=== PATIENT | male | born 1940 | race Caucasian/White ===

== ENCOUNTER → 2017-04-10 | Outpatient (CLI) | payer BC ==
[~2017-04-10] MED LIST: ALBU1AER9; ASPEC81 PO; CLR10 PO; DIAZ-165 PO; MULT-506 PO; NAPR1TAB9 PO; ROPI0.25 PO; [UNRECOGNIZED DRUG - CODE]
[2017-04-10 13:35] LABS: BLOOD UREA NITROGEN 16 mg/dl (7-18); BUN/CREATININE RATIO 14.9 (10-20); CARBON DIOXIDE 29 mmol/L (21-32); CHLORIDE 103 mmol/L (98-107); GLUCOSE 110 mg/dl (70-99); POTASSIUM 4.1 mmol/L (3.5-5.1); SODIUM 138 mmol/L (136-145)
[2017-04-10 13:38] LABS: CHOLESTEROL 214 mg/dl (0-200); CHOLESTEROL/HDL RATIO 6.3; HDL CHOLESTEROL 34 mg/dl; TRIGLYCERIDES 448 mg/dl (0-150)
== END | disposition home or self-care (01) ==
LOC: C.LABBC 09:48
PROVIDERS: ATTEND Family Medicine
DX: I10 Essential (primary) hypertension (principal); E78.00 Pure hypercholesterolemia, unspecified

== ENCOUNTER → 2017-05-18 | Outpatient (CLI) | payer BC ==
--- NOTE | 2017-05-18 13:27 | DIAGNOSTIC IMAGING REPORT ---
CT HEAD WITHOUT CONTRAST (CT) CLINICAL HISTORY: Vertigo, history of abnormal BRAIN MRI COMPARISON STUDY: Head CT dated 10/06/2014, MRI the brain dated 12/10/2014 TECHNIQUE: Axial CT of the brain is performed from the vertex to the skull base. IV contrast was not administered for this examination. A dose lowering technique was utilized adhering to the principles of ALARA. CT DOSE: 788.63 mGycm FINDINGS: There is a stable 1 cm some ependymal nodule within the anterior horn of the right lateral ventricle. There is no midline shift. There is no acute hemorrhage. There are patchy white matter hypodensities likely on a small vessel basis. There is no evidence of pathologic ventricular dilatation. There is no evidence of acute sinusitis. There is prominent extra-axial CSF space within the frontal regions unchanged the prior study. There is a stable metallic structure within the right calvarium just posterior and superior to the mastoids. IMPRESSION: 1. No acute intracranial findings 2. 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 Stable white matter hypodensities likely on a small vessel basis Electronically signed by: Jorge Gomes M.D. 05/18/2017 1:26 PM Dictated Date/Time: 05/18/2017 1:22 PM
== END | disposition home or self-care (01) ==
LOC: C.CTS 13:10
PROVIDERS: ATTEND Family Medicine
DX: R42 Dizziness and giddiness (principal); R90.89 Other abnormal findings on diagnostic imaging of central nervous system

== ENCOUNTER → 2017-10-16 | Outpatient (CLI) | payer BC ==
[2017-10-16 14:42] LABS: ALT/SGPT 29 U/L (12-78); BLOOD UREA NITROGEN 17 mg/dl (7-18); CALCIUM 8.8 mg/dl (8.5-10.1); CARBON DIOXIDE 32 mmol/L (21-32); CHOLESTEROL 171 mg/dl (0-200); CREATININE 1.17 mg/dl (0.60-1.40); GLUCOSE 90 mg/dl (70-99); POTASSIUM 4.1 mmol/L (3.5-5.1); SODIUM 137 mmol/L (136-145)
[2017-10-16 14:47] LABS: LDL CHOLESTEROL CALCULATED 103 mg/dl
== END | disposition home or self-care (01) ==
LOC: C.LABBC 11:46
PROVIDERS: ATTEND Family Medicine
DX: E78.00 Pure hypercholesterolemia, unspecified (principal); I10 Essential (primary) hypertension

== ENCOUNTER → 2017-10-31 | Outpatient (CLI) | payer BC ==
--- NOTE | 2017-10-31 15:39 | DIAGNOSTIC IMAGING REPORT ---
L-SPINE MIN 4 VIEWS ROUTINE CLINICAL HISTORY: M54.5 Low back pain s/p fall approx. 2 wks ago with pain in lower back COMPARISON STUDY: No previous studies for comparison. FINDINGS: There is a thoracolumbar dextroscoliosis. There is moderate facet joint arthropathy at the L4-5 and L5-S1 levels. There are multilevel degenerative changes. No acute fractures or traumatic subluxations are visualized. There is a minimal grade 1 spondylolisthesis of L4 on L5. IMPRESSION: Multilevel degenerative change. No acute fractures or traumatic subluxations identified Electronically signed by: Jorge Gomes M.D. 10/31/2017 3:37 PM Dictated Date/Time: 10/31/2017 3:08 PM
== END | disposition home or self-care (01) ==
LOC: C.RADBC 14:51
PROVIDERS: ATTEND Family Medicine
DX: M54.5 Low back pain (principal); M46.96 Unspecified inflammatory spondylopathy, lumbar region

== ENCOUNTER 2019-12-12 15:56 | Inpatient (IN) ==
[2019-12-12] MEDS ORDERED: SODIUM CHLORIDE 0.9% 500 ML IV ONE (16:11)
--- NOTE | 2019-12-12 16:25 | XRay Report ---
XR chest 1V portable CLINICAL HISTORY: Atypical chest pain COMPARISON STUDY: 07/30/2019 FINDINGS: The heart is at the upper limits of normal in size. Emphysema is suspected. There is no focal pulmonary consolidation. There is no failure. There are no pleural effusions. There is a calcified left lower lung zone granuloma. There is minor basilar atelec tasis/scarring.[ IMPRESSION: No active disease in the chest. ACT 112: Negative or not required by law. Electronically signed by: Jorge Gomes M.D. 12/12/2019 4:24 PM
--- NOTE | 2019-12-12 16:48 | Emergency Department Note ---
History of Present Illness General Chief complaint: Chest Pain Stated complaint: CHEST PAIN Time Seen by Provider: 12/12/19 16:11 Source: patient Mode of arrival: ambulatory Limitations: no limitations History of Present Illness Provider complaint: Chest pain Onset (ago): hour(s) Location: chest Severity: moderate Pain Consistency: + intermittent and + now resolved Maximum Pain Intensity: 5 Current Pain Intensity: 0 Relieved By: + none Exacerbated By: + none Associated symptoms: no diaphoresis, no nausea/vomiting, no shortness of breath and no syncope Treatments prior to arrival: none The patient is a pleasant 79-year-old gentleman with a 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 Denies shortness of breath, nausea, vomiting. He denies any recent illness with i ncluding fevers chills, cough, congestion, diarrhea. At this time patient denies any symptoms. He reports being evaluated for similar symptoms several months ago and had an outpatient nuclear stress test that was negative per his understanding. Home Medications Home Medications Medication Instructions Recorded Confirmed Type albuterol sulfate 90 mcg/actuation 1 - 2 puffs INHALATION Q4H PRN #1 06/14/19 12/12/19 History aerosol inhaler gm azelastine 137 mcg (0.1 %) nasal 2 sprays INTRANASAL BID #3 ml 06/14/19 12/12/19 History spray aerosol beclomethasone dipropionate 80 1 puffs INHALATION HS #1 gm 06/14/19 12/12/19 History mcg/actuation HFA breath activated aerosol epinephrine 0.3 mg/0.3 mL 0.3 ml IM UD PRN #1 ea 06/14/19 12/12/19 History injection, auto-injector calcium carb-vit D3-minerals 600 1 tab PO DAILY tab 07/21/19 12/12/19 History mg calcium-400 unit tablet docusate sodium 100 mg capsule 100 mg PO DAILY 07/21/19 12/12/19 History trazodone 50 mg tablet 50 - 100 mg PO HS PRN #60 tab 09/01/19 12/12/19 Rx temazepam 15 mg capsule 15 mg PO HS PRN #90 cap 09/05/19 12/12/19 Rx apixaban 5 mg tablet 5 mg PO BID #180 tab 09/10/19 12/12/19 Rx triamcinolone acetonide 0.1 % 1 appln TOPICAL TID #240 gm 10/03/19 12/12/19 Rx topical cream loratadine 5 mg-pseudoephedrine ER 1 tab PO Q12H #180 tab 11/28/19 12/12/19 Rx 120 mg tablet,extended release,12hr meclizine 25 mg tablet 25 mg PO BID PRN #60 tab 12/03/19 12/12/19 Rx prednisone 10 mg tablet See Rx Instructions PO DAILY #30 12/03/19 12/12/19 Rx tab gabapentin 400 mg capsule 400 mg PO BID #60 cap 12/10/19 12/12/19 Rx rdsrpozjey-jeehcry-xkoupqtu 1 cap PO Q6H PRN 12/12/19 12/12/19 History doxycycline hyclate 50 mg PO DAILY 12/12/19 12/12/19 History folic acid 1 mg PO HS 12/12/19 12/12/19 History losartan 25 mg PO QPM 12/12/19 12/12/19 History losartan 50 mg PO QPM 12/12/19 12/12/19 History Allergies Allergy/AdvReac Type Severity Reaction Status Date / Time sunflower seed Allergy Mild . Verified 12/12/19 17:27 pramipexole [From Mirapex] Allergy makes Verified 12/12/19 17:27 extremely sleppy Past Med/Surg History Medical History Afib (Chronic) HTN (hypertension), benign (Chronic) Prostate cancer (Resolved) Sleep apnea (Chronic) Status post placement of bone anchored hearing aid (BAHA) Surgical History S/P left knee surgery S/P prostatectomy Family History Family/Other Diabetes Brother Diabetes Mother Diverticulitis Denies family history of Ovarian cancer Prostate cancer Myocardial infarction Breast cancer Colorectal cancer Social History Preferred Language: Moroccan Visual Impairment: No Limitations Hearing Ability: Use of Hearing Aid marital status: Current Living Situation: Spouse current occupational status: retired Feels Safe at Home: Yes Smoking Status: Never smoker Second Hand Exposure: No ; Hx Alcohol Use: Yes Alcohol type: beer, wine and hard liquor Alcohol Intake Frequency: Daily Alcohol Intake Frequency Comment: 2 drinks a day Hx Substance Use: No Childhood Exposure to Second-Hand Smoke: Yes Dental Care, Regularly: Yes Physical Activity Frequency: Does not Exercise Seatbelt Use: always Sunscreen Use: Yes Review of Systems See HPI for pertinent positives and negatives. A total of ten systems were reviewed and were otherwise negative. Physical Exam Vital Signs Vital Signs - 24 hr 12/12/19 16:00 12/12/19 16:40 12/12/19 16:57 Temperature 36.7 C Temperature Source Oral Pulse Rate 106 H 84 85 Pulse Rate from SpO2 Sensor 87 Respiratory Rate 20 20 11 L Blood Pressure 178/122 H 172/110 H Blood Pressure Mean 140 129 Pulse Oximetry 98 100 Oxygen Delivery Method Room Air Sepsis Recent Fever Within 48 Hours No Sepsis New/Unexplained Change in Mental Status No Sepsis Action Taken by Nursing No Action Required 12/12/19 17:00 12/12/19 17:01 12/12/19 17:30 Temperature Temperature Source Pulse Rate 82 85 81 Pulse Rate from SpO2 Sensor 87 94 H 80 Respiratory Rate 14 7 L 12 Blood Pressure 160/102 H 158/100 H Blood Pressure Mean 111 142 Pulse Oximetry 98 98 98 Oxygen Delivery Method Sepsis Recent Fever Within 48 Hours Sepsis New/Unexplained Change in Mental Status Sepsis Action Taken by Nursing 12/12/19 17:31 12/12/19 18:00 12/12/19 18:01 Temperature Temperature Source Pulse Rate 79 79 70 Pulse Rate from SpO2 Sensor 82 78 75 Respiratory Rate 14 14 18 Blood Pressure 184/117 H Blood Pressure Mean 123 Pulse Oximetry 99 97 99 Oxygen Delivery Method Sepsis Recent Fever Within 48 Hours Sepsis New/Unexplained Change in Mental Status Sepsis Action Taken by Nursing 12/12/19 18:30 12/12/19 19:00 12/12/19 19:13 Temperature Temperature Source Pulse Rate 81 72 81 Pulse Rate from SpO2 Sensor 79 72 87 Respiratory Rate 13 14 9 L Blood Pressure 173/123 H 194/131 H 181/119 H Blood Pressure Mean 143 152 146 Pulse Oximetry 99 100 100 Oxygen Delivery Method Sepsis Recent Fever Within 48 Hours Sepsis New/Unexplained Change in Mental Status Sepsis Action Taken by Nursing 12/12/19 20:19 12/12/19 20:30 12/12/19 21:30 Temperature Temperature Source Pulse Rate 74 83 75 Pulse Rate from SpO2 Sensor 79 86 Respiratory Rate 12 12 20 Blood Pressure 197/130 H 197/135 H 203/122 H Blood Pressure Mean 140 142 132 Pulse Oximetry 99 98 Oxygen Delivery Method Room Air Sepsis Recent Fever Within 48 Hours Sepsis New/Unexplained Change in Mental Status Sepsis Action Taken by Nursing GENERAL: Awake, alert, well-appearing, in no distress HENT: Normocephalic, atraumatic. Oropharynx with dry mucous membranes and otherwise unremarkable. EYES: Normal conjunctiva. Sclera non-icteric. NECK: Supple. No nuchal rigidity. FROM. No JVD. RESPIRATORY: Clear to auscultation. CARDIAC: Regular rate, irregular rhythm. Extremities warm and well perfused. Pulses equal. ABDOMEN: Soft, non-distended. No tenderness to palpation. No rebound or guarding. No masses. RECTAL: Deferred. MUSCULOSKELETAL: Chest examination reveals no tenderness. The back is symmetrical on inspection without obvious abnormality. There is no CVA tenderness to palpation. No joint edema. LOWER EXTREMITIES: Calves are equal size bilaterally and non-tender. No edema. No discoloration. NEURO: Normal sensorium. No sensory or motor deficits noted. SKIN: No rash or jaundice noted. Course Administered Medications Apixaban (Eliquis) 5 mg PO BID MILAD Stop: 01/11/20 23:28 Last Admin: 12/13/19 01:14 Dose: 5 mg Documented by: [id number] Metoprolol Tartrate (Lopressor) 5 mg IV Q4 PRN PRN Reason: hypertension Stop: 01/11/20 23:28 Last Admin: 12/13/19 00:52 Dose: 5 mg Documented by: [id number] Temazepam (Restoril) 15 mg PO HS PRN PRN Reason: insomnia Stop: 01/11/20 23:28 Last Admin: 12/13/19 00:51 Dose: 15 mg Documented by: [id number] Trazodone HCl (Desyrel) 100 mg PO HS PRN PRN Reason: SLEEPLESSNESS Stop: 01/12/20 00:32 Last Admin: 12/13/19 00:50 Dose: 100 mg Documented by: [id number] Discontinued Medications Aspirin (Aspirin Chew) 324 mg PO NOW STA Stop: 12/12/19 20:36 Last Admin: 12/12/19 21:01 Dose: 324 mg Documented by: [id number] Hydralazine HCl (Hydralazine Hcl) 5 mg IV NOW STA Stop: 12/12/19 22:07 Last Admin: 12/12/19 22:20 Dose: 5 mg Documented by: [id number] Sodium Chloride (Nss) 500 mls @ 999 mls/hr IV .Q31M ONE Stop: 12/12/19 16:41 Last Infusion: 12/12/19 18:50 Dose: 0 mls/hr Documented by: [id number] Admin: 12/12/19 17:09 Dose: 999 mls/hr Documented by: [id number] Medical Decision Making Differential Diagnosis Cardiac ischemia, aortic dissection, pulmonary embolism, pneumothorax, pneumonia, pericarditis, myocarditis, esophageal rupture, GERD, cholecystitis, pancreatitis, musculoskeletal, as well as other pathologies. Medical Records Attestation: I reviewed the patient's medical records. Home Medications Current Medication List: was personally reviewed by me Laboratory Data Attestation: I reviewed the patient's lab results. Result diagrams: 12/12/19 16:40 12/12/19 18:26 Lab Results 12/12/19 12/12/19 12/12/19 Range/Units 16:40 16:40 16:40 WBC 8.94 (4.8-10.8) K/uL RBC 4.91 (4.7-6.1) M/uL Hgb 16.1 (14.0-18.0) g/dL Hct 47.0 (42-52) % MCV 95.7 (80-100) fL MCH 32.8 (25-34) pg MCHC 34.3 (32-36) g/dL RDW Std Deviation 49.0 H (36.4-46.3) fL RDW Coeff of Trudi 14.2 (11.5-14.5) % Plt Count 155 (130-400) K/uL MPV 9.7 (7.4-10.4) fL Immature Gran % (Auto) 0.4 % Neut % (Auto) 82.1 % Lymph % (Auto) 11.4 % [place] % (Auto) 5.8 % Eos % (Auto) 0.1 % Baso % (Auto) 0.2 % Immature Gran # (Auto) 0.04 H (0.00-0.02) K/uL Neut # (Auto) 7.33 H (1.4-6.5) K/uL Lymph # (Auto) 1.02 L (1.2-3.4) K/uL [place] # (Auto) 0.52 (0.11-0.59) K/uL Eos # (Auto) 0.01 (0-0.5) K/uL Baso # (Auto) 0.02 (0-0.2) K/uL PT 11.3 (9.0-12.0) Seconds INR 1.1 (0.9-1.1) APTT 26.6 (21.0-31.0) Seconds PTT Ratio 1.0 Sodium 138 (136-145) mmol/L Potassium (3.5-5.1) mmol/L Chloride 107 (98-107) mmol/L Carbon Dioxide 28 (21-32) mmol/L Anion Gap 3.0 (3-11) BUN 24 H (7-18) mg/dl Creatinine 1.08 (0.6-1.4) mg/dl Est Cr Clr Drug Dosing 59.9 ml/min Est GFR ( Amer) 74.7 Est GFR (Non-Af Amer) 64.5 BUN/Creatinine Ratio 22.6 H (10-20) Glucose 100 H (70-99) mg/dl Calcium 9.1 (8.5-10.1) mg/dl Phosphorus 3.3 (2.5-4.9) mg/dl Magnesium (1.8-2.4) mg/dl Total Bilirubin 0.6 (0.2-1) mg/dl AST (15-37) U/L ALT 83 H (12-78) U/L Alkaline Phosphatase 89 (45-117) U/L Troponin I 0.041 (0-0.045) ng/ml Total Protein 7.1 (6.4-8.2) gm/dl Albumin 3.4 (3.4-5.0) gm/dl Globulin 3.7 (2.5-4.0) gm/dl Albumin/Globulin Ratio 0.9 (0.9-2) Lipase 113 (73-393) U/L TSH 1.470 (0.300-4.500) uIu/ml Specimen Hemolysis 12/12/19 Range/Units 18:26 WBC (4.8-10.8) K/uL RBC (4.7-6.1) M/uL Hgb (14.0-18.0) g/dL Hct (42-52) % MCV (80-100) fL MCH (25-34) pg MCHC (32-36) g/dL RDW Std Deviation (36.4-46.3) fL RDW Coeff of Trudi (11.5-14.5) % Plt Count (130-400) K/uL MPV (7.4-10.4) fL Immature Gran % (Auto) % Neut % (Auto) % Lymph % (Auto) % [place] % (Auto) % Eos % (Auto) % Baso % (Auto) % Immature Gran # (Auto) (0.00-0.02) K/uL Neut # (Auto) (1.4-6.5) K/uL Lymph # (Auto) (1.2-3.4) K/uL [place] # (Auto) (0.11-0.59) K/uL Eos # (Auto) (0-0.5) K/uL Baso # (Auto) (0-0.2) K/uL PT (9.0-12.0) Seconds INR (0.9-1.1) APTT (21.0-31.0) Seconds PTT Ratio Sodium (136-145) mmol/L Potassium 4.7 (3.5-5.1) mmol/L Chloride (98-107) mmol/L Carbon Dioxide (21-32) mmol/L Anion Gap (3-11) BUN (7-18) mg/dl Creatinine (0.6-1.4) mg/dl Est Cr Clr Drug Dosing ml/min Est GFR ( Amer) Est GFR (Non-Af Amer) BUN/Creatinine Ratio (10-20) Glucose (70-99) mg/dl Calcium (8.5-10.1) mg/dl Phosphorus (2.5-4.9) mg/dl Magnesium 2.2 (1.8-2.4) mg/dl Total Bilirubin (0.2-1) mg/dl AST 63 H (15-37) U/L ALT (12-78) U/L Alkaline Phosphatase (45-117) U/L Troponin I 0.119 H* (0-0.045) ng/ml Total Protein (6.4-8.2) gm/dl Albumin (3.4-5.0) gm/dl Globulin (2.5-4.0) gm/dl Albumin/Globulin Ratio (0.9-2) Lipase (73-393) U/L TSH (0.300-4.500) uIu/ml Specimen Hemolysis Imaging Data Attestation: I personally reviewed and interpreted this imaging study as follows: Radiologist's Impression: XR chest 1V portable CLINICAL HISTORY: Atypical chest pain COMPARISON STUDY: 07/30/2019 FINDINGS: The heart is at the upper limits of normal in size. Emphysema is suspected. There is no focal pulmonary consolidation. There is no failure. There are no pleural effusions. There is a calcified left lower lung zone granuloma. There is minor basilar atelectasis/scarring.[ IMPRESSION: No active disease in the chest. ACT 112: Negative or not required by law. ECG Data Attestation: I personally reviewed and interpreted this ECG as follows: Indication: chest pain Rate (beats per minute): 92 Rhythm: atrial fibrillation Findings: + other (normal axis) and + PVC; no acute ischemic change Blood Pressure Blood Pressure Findings: Elevated blood pressure Blood Pressure Disposition: further management by hospitalist KARLIE Segovia The patient is a pleasant 79-year-old gentleman with a past medical history of A. fib on Eliquis who presents emergency department with episode of chest pain that happened today that was not associated with exertion, lasting 10-15 minutes and resolving with repeat episode within 30 minutes of similar nature. Denies shortness of breath, nausea, vomiting. He denies any recent illness with including fevers chills, cough, congestion, diarrhea. At this time patient denies any symptoms. He reports being evaluated for similar symptoms several months ago and had an outpatient nuclear stress test that was negative per his understanding. On arrival patient is no acute distress, afebrile stable vital signs. Exam is unremarkable. EKG with rate controlled afib without overt acute ischemia. Chest x-ray negative for acute process. WBC, H/H and platelets within normal limits. Chemistry without acidosis. LFTs slightly elevated with AST 63 and ALT 83, nonspecific. Initial troponin 0.041, within normal limits. However delta 2-hour troponin was performed and increased to 0.119. While the patient did have a recent nuclear stress test which was negative given his symptoms today in the setting of his rising troponin reasonable to admit for further evaluation. Heart score 6, moderate risk. ASA ordered. Patient ultimately was agreeable with plan for admission. Case was discussed with Dr. Ceron, [facility] hospitalist, who evaluate the patient for admission. Impression & Plan Substernal chest pain, Atrial fibrillation, On apixaban therapy, Hypertension Discharge Plan Visit Data *Final* Discharge Date/Time: 12/12/19 23:07 Chief Complaint: Chest Pain Stated Complaint: CHEST PAIN ED Provider: Yeyo Bryson Discharge Problem: Substernal chest pain, Atrial fibrillation, On apixaban therapy, Hypertension Patient Disposition: Admitted As Inpatient Discharge Instructions Interventions: ED Discharge Assessment Last Done: 12/12/19 23:07
--- NOTE | 2019-12-12 17:01 | Electrocardiogram Report ---
Test Reason : Blood Pressure : / mmHG Vent. Rate : 092 BPM Atrial Rate : 097 BPM P-R Int : 000 ms QRS Dur : 090 ms QT Int : 356 ms P-R-T Axes : 000 010 069 degrees QTc Int : 440 ms Atrial fibrillation with premature ventricular or aberrantly conducted complexes Abnormal ECG When compared with ECG of 30-JUL-2019 19:28, No significant change was found Confirmed by Juna Diaz ([id number]) on 12/12/2019 5:00:38 PM Referred By: [id number] Confirmed By:Juan Diaz
[2019-12-12 17:13] LABS: Basophils # (auto) 0.02 K/uL (0-0.2); Basophils % (auto) 0.2 %; Eosinophils # (auto) 0.01 K/uL (0-0.5); Eosinophils % (auto) 0.1 %; Hemoglobin 16.1 g/dL (14.0-18.0); Immature Granulocytes # (auto) 0.04 K/uL (0.00-0.02); Immature Granulocytes % (auto) 0.4 %; Lymphocytes # (auto) 1.02 K/uL (1.2-3.4); Lymphocytes % (auto) 11.4 %; Mean Corpuscular Hemoglobin 32.8 pg (25-34); Mean Corpuscular Hgb Conc 34.3 g/dL (32-36); Mean Corpuscular Volume 95.7 fL (80-100); Mean Platelet Volume 9.7 fL (7.4-10.4); Monocytes # (auto) 0.52 K/uL (0.11-0.59); Monocytes % (auto) 5.8 %; Neutrophils # (auto) 7.33 K/uL (1.4-6.5); Neutrophils % (auto) 82.1 %; Platelet Count 155 K/uL (130-400); RDW Coefficient of Variation 14.2 % (11.5-14.5); Red Blood Count 4.91 M/uL (4.7-6.1); White Blood Count 8.94 K/uL (4.8-10.8)
[2019-12-12 17:28] LABS: INR 1.1 (0.9-1.1); Partial Thromboplastin Time 26.6 Seconds (21.0-31.0); Prothrombin Time 11.3 Seconds (9.0-12.0)
[2019-12-12 18:02] LABS: Albumin Globulin Ratio 0.9 (0.9-2); Albumin Level 3.4 gm/dl (3.4-5.0); BUN Creatinine Ratio 22.6 (10-20); Bilirubin,Total 0.6 mg/dl (0.2-1); Calcium 9.1 mg/dl (8.5-10.1); Creatinine Clr Calc Pharmacy 59.9 ml/min; Est GFR (African American) 74.7; Est GFR (Non-African American) 64.5; Globulin 3.7 gm/dl (2.5-4.0); Phosphorus 3.3 mg/dl (2.5-4.9); Thyroid Stimulating Hormone 1.47 uIu/ml (0.300-4.500); Total Protein 7.1 gm/dl (6.4-8.2); Troponin I 0.041 ng/ml (0-0.045)
[2019-12-12 18:51] LABS: Potassium 4.7 mmol/L (3.5-5.1)
[2019-12-12 19:18] LABS: Magnesium 2.2 mg/dl (1.8-2.4); Troponin I 0.119 ng/ml (0-0.045)
[2019-12-12] MEDS ORDERED: ASPIRIN 81 MG CHEW PO STA (20:35)
[2019-12-12] MEDS ORDERED: HydrALAZINE HCL 20 MG/ML VIAL IV STA (22:06)
[2019-12-12] MEDS ORDERED: MoRPHine SULFATE 2 MG/ML CARP IV PRN (23:29)
[2019-12-12] MEDS ORDERED: ONDANSETRON INJ 2 MG/ML 2 ML VIAL IV PRN (23:29)
[2019-12-12] MEDS ORDERED: ALBUTEROL HFA 8 GM INHALER INH PRN (23:29)
[2019-12-12] MEDS ORDERED: NITROGLYCERIN SL 0.4 MG/TAB TAB SL PRN (23:29)
[2019-12-12] MEDS ORDERED: ACETAMINOPHEN 325 MG TAB PO PRN (23:29)
[2019-12-12] MEDS ORDERED: HydrALAZINE HCL 20 MG/ML VIAL IV PRN (23:33)
[2019-12-13] MEDS ORDERED: MECLIZINE HCL 25 MG TAB PO PRN (00:36)
[2019-12-13] MEDS: TRAZODONE HCL 50 MG TAB PO PRN ×2 (00:50→20:44)
[2019-12-13] MEDS: TEMAZEPAM 15 MG CAPSULE PO PRN ×2 (00:51→20:44)
[2019-12-13] MEDS: METOPROLOL TARTRATE 1 MG/ML VIAL IV PRN ×2 (00:52→07:23)
[2019-12-13] MEDS: APIXABAN 5 MG TABLET PO SCH ×2 (01:14→07:35)
[2019-12-13 03:09] LABS: Basophils # (auto) 0.04 K/uL (0-0.2); Basophils % (auto) 0.4 %; Eosinophils # (auto) 0.03 K/uL (0-0.5); Eosinophils % (auto) 0.3 %; Hematocrit (blood only) 45.4 % (42-52); Hemoglobin 15.7 g/dL (14.0-18.0); Immature Granulocytes # (auto) 0.01 K/uL (0.00-0.02); Immature Granulocytes % (auto) 0.1 %; Lymphocytes # (auto) 2.85 K/uL (1.2-3.4); Lymphocytes % (auto) 29.1 %; Mean Corpuscular Hgb Conc 34.6 g/dL (32-36); Mean Corpuscular Volume 95.4 fL (80-100); Mean Platelet Volume 9.7 fL (7.4-10.4); Monocytes # (auto) 0.72 K/uL (0.11-0.59); Monocytes % (auto) 7.4 %; Neutrophils # (auto) 6.14 K/uL (1.4-6.5); Neutrophils % (auto) 62.7 %; Platelet Count 160 K/uL (130-400); RDW Coefficient of Variation 13.9 % (11.5-14.5); RDW Standard Deviation 48.4 fL (36.4-46.3); Red Blood Count 4.76 M/uL (4.7-6.1); White Blood Count 9.79 K/uL (4.8-10.8)
--- NOTE | 2019-12-13 03:35 | History & Physical Report ---
Date of Service December 13, 2019 Assessment & Plan (1) Substernal chest pain: Acute episode of substernal chest discomfort while at rest. Troponin increasing, 0.041-0.119. Patient presently chest pain-free. Administered aspirin in the ER Admit to medical floor telemetry monitoring Continue to trend troponin Aspirin 81 mg p.o. daily Oxygen as needed Morphine and nitroglycerin as needed for pain Check 2D echo in the morning Cardiology consultation appreciated Present on Admission?: Yes (2) Atrial fibrillation: Patient in atrial fibrillation, rate controlled Continue apixaban for anticoagulation Present on Admission?: Yes (3) Hypertension: Blood pressure elevated to 181/119. Possibly contributing to mild elevation in troponin. He was recently put on a steroid taper which may be contributing to elevation in blood pressure Continue losartan at home dose Metoprolol as needed IV for blood pressure control Present on Admission?: Yes (4) Obstructive sleep apnea: Chronic. Stable. CPAP nightly (5) Insomnia: Chronic. Stable. Continue Restoril 50 mg p.o. nightly Continue trazodone 100 mg p.o. nightly Present on Admission?: Yes (6) Abnormal LFTs: Mild elevation in AST and ALT Repeat levels in the morning (7) Asthma: Chronic. Patient denies shortness of breath, cough or wheeze Continue albuterol inhaled as needed FENHep-Lock, monitor electrolytes, n.p.o. after midnight Prophylaxispatient anticoagulated on apixaban CodeDNR/DNI per discussion with patient Dispositionadmission to medical floor with telemetry monitoring Present on Admission?: Yes History of Present Illness Chief Complaint: Chest pain Primary Care Provider: Justa Moore MD Patient is a pleasant 79-year-old male with history of hypertension/hyperlipidemia/atrial fibrillation on apixaban anticoagulation presenting with chest pain. Patient reports that this afternoon around 1330 he had acute onset of chest discomfort, bandlike between his nipples, 10 of 10 in severity with radiation to his jaw. The pain lasted approximately 10 to 15 minutes then resolved completely. He had a second episode approximately 30 minutes later which was very similar to the first and resolved as well. He denies associated diaphoresis, shortness of breath, nausea, vomiting, palpitations or dizziness. He had a similar episode in July although enzymes remain negative. He was seen by cardiology on 08/12/2019 and had a dobutamine stress echocardiogram per formed which was negative for inducible ischemia. ER course, aspirin 324, normal saline Allergies Allergy/AdvReac Type Severity Reaction Status Date / Time sunflower seed Allergy Mild . Verified 12/12/19 17:27 pramipexole [From Mirapex] Allergy makes Verified 12/12/19 17:27 extremely sleppy Home Medications Home Medications Medication Instructions Recorded Confirmed Type albuterol sulfate 90 mcg/actuation 1 - 2 puffs INHALATION Q4H PRN #1 06/14/19 12/12/19 History aerosol inhaler gm azelastine 137 mcg (0.1 %) nasal 2 sprays INTRANASAL BID #3 ml 06/14/19 12/12/19 History spray aerosol beclomethasone dipropionate 80 1 puffs INHALATION HS #1 gm 06/14/19 12/12/19 History mcg/actuation HFA breath activated aerosol epinephrine 0.3 mg/0.3 mL 0.3 ml IM UD PRN #1 ea 06/14/19 12/12/19 History injection, auto-injector calcium carb-vit D3-minerals 600 1 tab PO DAILY tab 07/21/19 12/12/19 History mg calcium-400 unit tablet docusate sodium 100 mg capsule 100 mg PO DAILY 07/21/19 12/12/19 History trazodone 50 mg tablet 50 - 100 mg PO HS PRN #60 tab 09/01/19 12/12/19 Rx temazepam 15 mg capsule 15 mg PO HS PRN #90 cap 09/05/19 12/12/19 Rx apixaban 5 mg tablet 5 mg PO BID #180 tab 09/10/19 12/12/19 Rx triamcinolone acetonide 0.1 % 1 appln TOPICAL TID #240 gm 10/03/19 12/12/19 Rx topical cream loratadine 5 mg-pseudoephedrine ER 1 tab PO Q12H #180 tab 11/28/19 12/12/19 Rx 120 mg tablet,extended release,12hr meclizine 25 mg tablet 25 mg PO BID PRN #60 tab 12/03/19 12/12/19 Rx prednisone 10 mg tablet See Rx Instructions PO DAILY #30 12/03/19 12/12/19 Rx tab gabapentin 400 mg capsule 400 mg PO BID #60 cap 12/10/19 12/12/19 Rx agbtiaaxzt-vzaeazv-whskmcyu 1 cap PO Q6H PRN 12/12/19 12/12/19 History doxycycline hyclate 50 mg PO DAILY 12/12/19 12/12/19 History folic acid 1 mg PO HS 12/12/19 12/12/19 History losartan 25 mg PO QPM 12/12/19 12/12/19 History losartan 50 mg PO QPM 12/12/19 12/12/19 History Past Med/Surg History Medical History (Updated 12/13/19 @ 03:34 by Thu Ceron DO) Afib (Chronic) HTN (hypertension), benign (Chronic) Hypercholesterolemia (Chronic) Prostate cancer (Resolved) Sleep apnea (Chronic) Status post placement of bone anchored hearing aid (BAHA) Surgical History S/P left knee surgery S/P prostatectomy Family History Family/Other Diabetes Brother Diabetes Mother Diverticulitis Denies family history of Ovarian cancer Prostate cancer Myocardial infarction Breast cancer Colorectal cancer Social History Preferred Language: American Visual Impairment: No Limitations Hearing Ability: Use of Hearing Aid marital status: Current Living Situation: Spouse current occupational status: retired Feels Safe at Home: Yes Smoking Status: Never smoker Second Hand Exposure: No ; Hx Alcohol Use: Yes Alcohol type: beer, wine and hard liquor Alcohol Intake Frequency: Daily Alcohol Intake Frequency Comment: 2 drinks a day Hx Substance Use: No Childhood Exposure to Second-Hand Smoke: Yes Dental Care, Regularly: Yes Physical Activity Frequency: Does not Exercise Seatbelt Use: always Sunscreen Use: Yes Review of Systems Review of Systems: All systems reviewed & are unremarkable except as noted in HPI & below Physical Exam Physical Exam: General: patient resting comfortably, NAD, non-toxic in appearance, AA&O x 4 Skin: warm, dry, intact, no rashes or lesions HEENT: NC/AT, PERRL, EOMI, anicteric sclera, conjunctiva without injection, external ear normal to inspection and nontender, nares patent, moist mucus membranes, dentition intact, no oropharyngeal lesions, neck supple, trachea midline, no LAD, no thyromegaly, no JVD Heart: +S1/S2, irregularly irregular, no m/r/g Lungs: equal air entry bilaterally, no rales/rhonchi/wheezes Abd: +BS, soft, NT/ND, no masses/organomegaly/ascites Ext: warm, 2+ pulses in UE/LE bilaterally, no clubbing/cyanosis or edema Neuro: nonfocal, patient AA&O x 4, speech intact, no facial droop, moving all extremities on command with equal strength 5/5 Results & Data Vital Signs (Past 12 Hours) Vital Signs Temp Pulse Resp BP Pulse Ox 12/13/19 00:52 89 186/136 H 12/12/19 23:00 89 15 147/87 H 97 12/12/19 22:45 76 18 157/95 H 97 12/12/19 22:30 79 19 162/108 H 97 12/12/19 22:23 66 22 180/108 H 98 12/12/19 22:00 86 23 166/112 H 99 12/12/19 21:52 85 18 182/130 H 12/12/19 21:30 75 20 203/122 H 12/12/19 20:30 83 12 197/135 H 98 12/12/19 20:19 74 12 197/130 H 99 12/12/19 19:13 81 9 L 181/119 H 100 12/12/19 19:00 72 14 194/131 H 100 12/12/19 18:30 81 13 173/123 H 99 12/12/19 18:01 70 18 99 12/12/19 18:00 79 14 184/117 H 97 12/12/19 17:31 79 14 99 12/12/19 17:30 81 12 158/100 H 98 12/12/19 17:01 85 7 L 98 12/12/19 17:00 82 14 160/102 H 98 12/12/19 16:57 85 11 L 172/110 H 100 12/12/19 16:40 84 20 12/12/19 16:00 36.7 C 106 H 20 178/122 H 98 Laboratory Results Lab Results 12/12/19 12/12/19 12/12/19 Range/Units 16:40 16:40 16:40 WBC 8.94 (4.8-10.8) K/uL RBC 4.91 (4.7-6.1) M/uL Hgb 16.1 (14.0-18.0) g/dL Hct 47.0 (42-52) % MCV 95.7 (80-100) fL MCH 32.8 (25-34) pg MCHC 34.3 (32-36) g/dL RDW Std Deviation 49.0 H (36.4-46.3) fL RDW Coeff of Trudi 14.2 (11.5-14.5) % Plt Count 155 (130-400) K/uL MPV 9.7 (7.4-10.4) fL Immature Gran % (Auto) 0.4 % Neut % (Auto) 82.1 % Lymph % (Auto) 11.4 % Sac % (Auto) 5.8 % Eos % (Auto) 0.1 % Baso % (Auto) 0.2 % Immature Gran # (Auto) 0.04 H (0.00-0.02) K/uL Neut # (Auto) 7.33 H (1.4-6.5) K/uL Lymph # (Auto) 1.02 L (1.2-3.4) K/uL Sac # (Auto) 0.52 (0.11-0.59) K/uL Eos # (Auto) 0.01 (0-0.5) K/uL Baso # (Auto) 0.02 (0-0.2) K/uL PT 11.3 (9.0-12.0) Seconds INR 1.1 (0.9-1.1) APTT 26.6 (21.0-31.0) Seconds PTT Ratio 1.0 Sodium 138 (136-145) mmol/L Potassium (3.5-5.1) mmol/L Chloride 107 (98-107) mmol/L Carbon Dioxide 28 (21-32) mmol/L Anion Gap 3.0 (3-11) BUN 24 H (7-18) mg/dl Creatinine 1.08 (0.6-1.4) mg/dl Est Cr Clr Drug Dosing 59.9 ml/min Est GFR ( Amer) 74.7 Est GFR (Non-Af Amer) 64.5 BUN/Creatinine Ratio 22.6 H (10-20) Glucose 100 H (70-99) mg/dl Calcium 9.1 (8.5-10.1) mg/dl Phosphorus 3.3 (2.5-4.9) mg/dl Magnesium (1.8-2.4) mg/dl Total Bilirubin 0.6 (0.2-1) mg/dl AST (15-37) U/L ALT 83 H (12-78) U/L Alkaline Phosphatase 89 (45-117) U/L Troponin I 0.041 (0-0.045) ng/ml Total Protein 7.1 (6.4-8.2) gm/dl Albumin 3.4 (3.4-5.0) gm/dl Globulin 3.7 (2.5-4.0) gm/dl Albumin/Globulin Ratio 0.9 (0.9-2) Lipase 113 (73-393) U/L TSH 1.470 (0.300-4.500) uIu/ml Specimen Hemolysis 12/12/19 12/13/19 Range/Units 18:26 02:46 WBC 9.79 (4.8-10.8) K/uL RBC 4.76 (4.7-6.1) M/uL Hgb 15.7 (14.0-18.0) g/dL Hct 45.4 (42-52) % MCV 95.4 (80-100) fL MCH 33.0 (25-34) pg MCHC 34.6 (32-36) g/dL RDW Std Deviation 48.4 H (36.4-46.3) fL RDW Coeff of Trudi 13.9 (11.5-14.5) % Plt Count 160 (130-400) K/uL MPV 9.7 (7.4-10.4) fL Immature Gran % (Auto) 0.1 % Neut % (Auto) 62.7 % Lymph % (Auto) 29.1 % Sac % (Auto) 7.4 % Eos % (Auto) 0.3 % Baso % (Auto) 0.4 % Immature Gran # (Auto) 0.01 (0.00-0.02) K/uL Neut # (Auto) 6.14 (1.4-6.5) K/uL Lymph # (Auto) 2.85 (1.2-3.4) K/uL Sac # (Auto) 0.72 H (0.11-0.59) K/uL Eos # (Auto) 0.03 (0-0.5) K/uL Baso # (Auto) 0.04 (0-0.2) K/uL PT (9.0-12.0) Seconds INR (0.9-1.1) APTT (21.0-31.0) Seconds PTT Ratio Sodium (136-145) mmol/L Potassium 4.7 (3.5-5.1) mmol/L Chloride (98-107) mmol/L Carbon Dioxide (21-32) mmol/L Anion Gap (3-11) BUN (7-18) mg/dl Creatinine (0.6-1.4) mg/dl Est Cr Clr Drug Dosing ml/min Est GFR ( Amer) Est GFR (Non-Af Amer) BUN/Creatinine Ratio (10-20) Glucose (70-99) mg/dl Calcium (8.5-10.1) mg/dl Phosphorus (2.5-4.9) mg/dl Magnesium 2.2 (1.8-2.4) mg/dl Total Bilirubin (0.2-1) mg/dl AST 63 H (15-37) U/L ALT (12-78) U/L Alkaline Phosphatase (45-117) U/L Troponin I 0.119 H* (0-0.045) ng/ml Total Protein (6.4-8.2) gm/dl Albumin (3.4-5.0) gm/dl Globulin (2.5-4.0) gm/dl Albumin/Globulin Ratio (0.9-2) Lipase (73-393) U/L TSH (0.300-4.500) uIu/ml Specimen Hemolysis Diagnostic Findings XR chest 1V portable CLINICAL HISTORY: Atypical chest pain COMPARISON STUDY: 07/30/2019 FINDINGS: The heart is at the upper limits of normal in size. Emphysema is suspected. There is no focal pulmonary consolidation. There is no failure. There are no pleural effusions. There is a calcified left lower lung zone granuloma. There is minor basilar atelectasis/scarring.[ IMPRESSION: No active disease in the chest. ACT 112: Negative or not required by law. Electronically signed by: Jorge Gomes M.D. 12/12/2019 4:24 PM Dictated: 12/12/19 1624 Transcribed: 12/12/19 1624 ECG Additional Comments: Atrial fibrillation with premature ventricular or aberrantly conducted complexes Abnormal ECG When compared with ECG of 30-JUL-2019 19:28, No significant change was found Confirmed by Juan Diaz ([id number]) on 12/12/2019 5:00:38 PM Code Status & VTE Plan Code Status DNR/DNI VTE Prophylaxis Plan VTE Prophylaxis will be ordered: Yes PG Care Time/CCT Total # of Minutes Spent Total Time Spent with Patient: Total time spent is greater than 50% in coordination of care (as documented) at patient's floor/unit and/or counseling patient: Coding Level of Care Code 99022 Initial Inpt Care Lvl 3 Diagnoses Substernal chest pain R07.2 Atrial fibrillation I48.19 Atrial fibrillation type: unspecified persistent Hypertension I10 Hypertension type: essential hypertension Obstructive sleep apnea G47.33 Insomnia G47.00 Insomnia type: unspecified Abnormal LFTs R94.5 Asthma J45.909 Asthma severity: unspecified severity Asthma persistence: unspecified Asthma complication type: unspecified (1) Atrial fibrillation Atrial fibrillation type: unspecified persistent Qualified Code(s): I48.19 - Other persistent atrial fibrillation (2) Hypertension Hypertension type: essential hypertension Qualified Code(s): I10 - Essential (primary) hypertension (3) Asthma Asthma severity: unspecified severity Asthma persistence: unspecified Asthma complication type: unspecified Qualified Code(s): J45.909 - Unspecified asthma, uncomplicated (4) Insomnia Insomnia type: unspecified Qualified Code(s): G47.00 - Insomnia, unspecified
[2019-12-13 03:38] LABS: Albumin Level 3.1 gm/dl (3.4-5.0); BUN Creatinine Ratio 25.2 (10-20); Bilirubin,Total 0.5 mg/dl (0.2-1); Calcium 8.4 mg/dl (8.5-10.1); Creatinine Clr Calc Pharmacy 71.9 ml/min; Est GFR (African American) 93.2; Est GFR (Non-African American) 80.4; Potassium 4.1 mmol/L (3.5-5.1); Total Protein 6.5 gm/dl (6.4-8.2); Troponin I 0.084 ng/ml (0-0.045)
[2019-12-13] MEDS: AZELASTINE~ORDER AWAITING ACTION SCH ×3 (07:20→22:56)
[2019-12-13] MEDS: GABAPENTIN 400 MG CAP PO SCH ×2 (07:35→20:44)
[2019-12-13] MEDS: DOXYCYCLINE HYCLATE 50 MG CAP PO SCH (07:35)
[2019-12-13] MEDS: DOCUSATE SODIUM 100 MG CAP PO SCH (07:35)
[2019-12-13] MEDS: TRIAMCINOLONE ACET 0.1% CR 15 GM TUBE TOP SCH ×3 (07:43→20:46)
[2019-12-13] MEDS ORDERED: predniSONE 10 MG TABLET PO SCH (09:00)
[2019-12-13] MEDS: ASPIRIN 81 MG ECTAB PO SCH (09:16)
[2019-12-13] MEDS: METOPROLOL TARTRATE 25 MG TAB PO SCH ×2 (09:16→20:44)
--- NOTE | 2019-12-13 17:06 | Cardiology Consultation ---
Date of Consultation December 13, 2019 Assessment & Plan (1) Elevated troponin: Given classic anginal type symptoms with troponin exhibiting typical peak and decay curve, high concern for acute coronary syndrome. Although ECG was benign, his symptoms had resolved by the time it was obtained. He had a relatively recent negative dobutamine stress echocardiogram, suggesting that he does not have severe occlusive coronary disease, however his current symptoms warrant more extensive evaluation. Since repeat stress study could give a false positive, recommended proceeding to cardiac catheterization. Since his symptoms occurred at rest, recommended that he remain in hospital until cardiac catheterization is performed. He is already on apixaban, so no heparinization needed. Would discontinue apixaban after this evening's dose in preparation for catheterization. (2) Substernal chest pain: No recurrence, as above. (3) Atrial fibrillation: Rate well controlled on current regimen. Anticoagulated with apixaban (which will need to be held prior to catheterization). (4) Hypertension: Suboptimally controlled. On metoprolol and losartan, agree with PRN hydra lazine. If persistently elevated, could add amlodipine 2.5 mg daily to his regimen. History of Present Illness Reason for Consultation: Chest pain/elevated troponin Requesting Physician: Thu Ceron DO Attending Physician: Urban Morales History of Present Illness 79-year-old man with history of permanent atrial fibrillation (apixaban/metoprolol), hypertension, but no known coronary disease, who was admitted 12/12/2019 with substernal chest pain radiating to his neck and jaw. ECG showed atrial fibrillation with no acute ischemic changes, troponin showed a peak and decay curve with maximal value of 0.119, echocardiogram showed no wall motion abnormalities. Of note, the patient underwent a dobutamine stress echo August 2019 which showed no ischemia at 92% maximum predicted heart rate. 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 His symptoms resolved in 15 minutes and have not recurred. At the time of my evaluation this morning, he was comfortable and had no complaints. Allergies Allergy/AdvReac Type Severity Reaction Status Date / Time sunflower seed Allergy Mild . Verified 12/12/19 17:27 pramipexole [From Mirapex] Allergy makes Verified 12/12/19 17:27 extremely sleppy Home Medications Home Medications Medication Instructions Recorded Confirmed Type albuterol sulfate 90 mcg/actuation 1 - 2 puffs INHALATION Q4H PRN #1 06/14/19 12/12/19 History aerosol inhaler gm azelastine 137 mcg (0.1 %) nasal 2 sprays INTRANASAL BID #3 ml 06/14/19 12/12/19 History spray aerosol beclomethasone dipropionate 80 1 puffs INHALATION HS #1 gm 06/14/19 12/12/19 History mcg/actuation HFA breath activated aerosol epinephrine 0.3 mg/0.3 mL 0.3 ml IM UD PRN #1 ea 06/14/19 12/12/19 History injection, auto-injector calcium carb-vit D3-minerals 600 1 tab PO DAILY tab 07/21/19 12/12/19 History mg calcium-400 unit tablet docusate sodium 100 mg capsule 100 mg PO DAILY 07/21/19 12/12/19 History trazodone 50 mg tablet 50 - 100 mg PO HS PRN #60 tab 09/01/19 12/12/19 Rx temazepam 15 mg capsule 15 mg PO HS PRN #90 cap 09/05/19 12/12/19 Rx apixaban 5 mg tablet 5 mg PO BID #180 tab 09/10/19 12/12/19 Rx triamcinolone acetonide 0.1 % 1 appln TOPICAL TID #240 gm 10/03/19 12/12/19 Rx topical cream loratadine 5 mg-pseudoephedrine ER 1 tab PO Q12H #180 tab 11/28/19 12/12/19 Rx 120 mg tablet,extended release,12hr meclizine 25 mg tablet 25 mg PO BID PRN #60 tab 12/03/19 12/12/19 Rx prednisone 10 mg tablet See Rx Instructions PO DAILY #30 12/03/19 12/12/19 Rx tab gabapentin 400 mg capsule 400 mg PO BID #60 cap 12/10/19 12/12/19 Rx bdgwtzogzm-jophcbv-shhukhah 1 cap PO Q6H PRN 12/12/19 12/12/19 History doxycycline hyclate 50 mg PO DAILY 12/12/19 12/12/19 History folic acid 1 mg PO HS 12/12/19 12/12/19 History losartan 25 mg PO QPM 12/12/19 12/12/19 History losartan 50 mg PO QPM 12/12/19 12/12/19 History Patient History Medical History Afib (Chronic) HTN (hypertension), benign (Chronic) Hypercholesterolemia (Chronic) Prostate cancer (Resolved) Sleep apnea (Chronic) Status post placement of bone anchored hearing aid (BAHA) Surgical History S/P left knee surgery S/P prostatectomy Family History Diabetes Family/Other Brother Diverticulitis Mother Denies family history of Ovarian cancer Prostate cancer Myocardial infarction Breast cancer Colorectal cancer Social History Preferred Language: Bhutanese Visual Impairment: No Limitations Hearing Ability: Use of Hearing Aid Beliefs That Will Affect Care: None marital status: Current Living Situation: Spouse current occupational status: retired Feels Safe at Home: Yes Smoking Status: Never smoker Second Hand Exposure: No ; Hx Alcohol Use: Yes Alcohol type: beer and other Alcohol Intake Frequency: Daily Alcohol Intake Frequency Comment: 2 drinks a day Hx Substance Use: No Childhood Exposure to Second-Hand Smoke: Yes Dental Care, Regularly: Yes Physical Activity Frequency: Does not Exercise Seatbelt Use: always Sunscreen Use: Yes Review of Systems Constitutional: no fever, no chills, no fatigue, no weight loss and no weight gain Eyes: no problem reported Ear, Nose, Mouth, Throat: no problem reported Respiratory: no cough and no dyspnea Cardiovascular: as per Subjective / HPI Gastrointestinal: no abdominal pain and no change in stools Musculoskeletal: no myalgia Integumentary: no rash and no new lesions Neurologic: no falls and no syncope Psychiatric: no problem reported Hematologic / Lymphatic: no easy bleeding and no easy bruising Physical Exam Physical Exam: Normal habitus elderly white male who appears younger than his stated age and appears comfortable. Afebrile. Moderately hypertensive. Normal heart rate. Normal respiratory rate. Skin: no ecchymoses or generalized lesions. HEENT: unremarkable. Neck: no JVD or carotid bruits. Lungs: clear. Cardiac: irregular rhythm, 2/6 apical holosystolic murmur which is nonradiating, no diastolic murmur or gallop. Abdomen benign. Extremities: no edema, pulses brisk. Neurologic: normal affect, nonfocal. Results & Data ([facility]) Laboratory Results 12/12/19 12/12/19 12/13/19 16:40 18:26 02:46 Creatinine 0.90 Troponin I 0.041 0.119 H* 0.084 H* 12/13/19 10:16 Creatinine Troponin I 0.025 Diagnostic Findings ECG showed atrial fibrillation with no acute change. Echocardiogram showed EF 55 to 60% with mild LVH and no wall motion abnormalities. Mild to moderate mitral regurgitation with mildly dilated left atrium, mild tricuspid vegetation with moderate pulmonary hypertension. Chest x-ray unremarkable. PG Care Time/CCT Total # of Minutes Spent Total Time Spent with Patient: Total time spent is greater than 50% in coordination of care (as documented) at patient's floor/unit and/or counseling patient: Coding Level of Care Code 76327 Initial Inpt Care Lvl 3 Diagnoses Elevated troponin R79.89 Substernal chest pain R07.2 Atrial fibrillation I48.19 Atrial fibrillation type: unspecified persistent Hypertension I10 Hypertension type: essential hypertension (1) Atrial fibrillation Atrial fibrillation type: unspecified persistent Qualified Code(s): I48.19 - Other persistent atrial fibrillation (2) Hypertension Hypertension type: essential hypertension Qualified Code(s): I10 - Essential (primary) hypertension
--- NOTE | 2019-12-13 17:11 | XCELERA ---
[id number] \\[id number]
[2019-12-13] MEDS ORDERED: LORATADINE 10 MG TAB PO ONE (20:30)
--- NOTE | 2019-12-13 20:30 | Hospitalist Progress Note ---
Date of Service December 13, 2019 Assessment & Plan (1) Substernal chest pain: Multiple CAD risk factors. Mild troponin elevation. Negative stress echo in 08/2019. 2D echo today with intact EF and normal wall motion. I spoke with Dr Barrera - cardiac cath advised. Agree w/ that recommendation. In meantime cont asa 81mg daily, hold eliquis in anticipation of cath on Sunday, check lipids/a1c in am. Added low-dose BB today. (2) Elevated troponin: At minimum had myocardial demand ischemia in setting of markedly elevated BP. If cath on Sunday shows CAD then this may have been a very, very mild NSTEMI. Await cath. (3) Atrial fibrillation: rate controlled even before I added low-dose beta robert for blood pressure. Hold apixaban in anticipation of cath on Sunday. (4) Hypertension: Uncontrolled. add metoprolol 25mg BID cont losartan (5) Obstructive sleep apnea: CPAP nightly (6) Insomnia: Chronic. Stable. Continue Restoril 50 mg p.o. nightly Continue trazodone 100 mg p.o. nightly (7) Abnormal LFTs: Mild elevation in AST and ALT both improved this am cause?? reactive?? repeat in 48 hours (8) Asthma: No exacerbation at this time. (9) DVT prophylaxis: eliquis, but will be on hold for cath on Sunday Admission and Anticipated Discharge Date Admission Date: December 12, 2019 Subjective since admission pt has had no cp or dyspnea feels well normal appetite denies RUFFIN tele normal thus far no heartburn symptoms Review of Systems Constitutional: no fatigue and no anorexia Respiratory: no cough Cardiovascular: no chest pain, no dyspnea at rest, no dyspnea on exertion, no orthopnea and no paroxysmal nocturnal dyspnea Physical Exam Constitutional: well developed and well nourished; no acute distress and no altered mental status ENMT: external ear and nose normal, oropharynx normal Respiratory: normal respiratory effort, lungs clear to auscultation Cardiovascular: Rate/Rhythm: regular rate and + irregularly irregular Heart Sounds: normal S1 and normal S2; no murmur Vessels: posterior tibial pulses present and dorsalis pedis pulses present; no JVD Extremities: no edema Gastrointestinal (Abdomen): normal bowel sounds, soft, nontender, no hepatosplenomegaly Psychiatric: A+Ox3, euthymic affect Results & Data ([facility]) Vital Signs (Past 12 Hours) Vital Signs Temp Pulse Resp BP Pulse Ox 12/13/19 19:45 36.5 C 68 16 128/73 95 12/13/19 11:36 36.7 C 74 18 160/99 H 100 12/13/19 09:04 69 172/83 H Laboratory Results Laboratory Results - last 24 hr 12/13/19 12/13/19 12/13/19 02:46 02:46 03:48 WBC 9.79 RBC 4.76 Hgb 15.7 Hct 45.4 MCV 95.4 MCH 33.0 MCHC 34.6 RDW Std Deviation 48.4 H RDW Coeff of Trudi 13.9 Plt Count 160 MPV 9.7 Immature Gran % (Auto) 0.1 Neut % (Auto) 62.7 Lymph % (Auto) 29.1 Donley % (Auto) 7.4 Eos % (Auto) 0.3 Baso % (Auto) 0.4 Immature Gran # (Auto) 0.01 Neut # (Auto) 6.14 Lymph # (Auto) 2.85 Donley # (Auto) 0.72 H Eos # (Auto) 0.03 Baso # (Auto) 0.04 Sodium 138 Potassium 4.1 Chloride 107 Carbon Dioxide 26 Anion Gap 5.0 BUN 23 H Creatinine 0.90 Est Cr Clr Drug Dosing 71.9 Est GFR ( Amer) 93.2 Est GFR (Non-Af Amer) 80.4 BUN/Creatinine Ratio 25.2 H Glucose 98 Calcium 8.4 L Total Bilirubin 0.5 Direct Bilirubin 0.1 AST 40 H ALT 69 Alkaline Phosphatase 83 Troponin I 0.084 H* Total Protein 6.5 Albumin 3.1 L Specimen Hemolysis 12/13/19 10:16 WBC RBC Hgb Hct MCV MCH MCHC RDW Std Deviation RDW Coeff of Trudi Plt Count MPV Immature Gran % (Auto) Neut % (Auto) Lymph % (Auto) Donley % (Auto) Eos % (Auto) Baso % (Auto) Immature Gran # (Auto) Neut # (Auto) Lymph # (Auto) Donley # (Auto) Eos # (Auto) Baso # (Auto) Sodium Potassium Chloride Carbon Dioxide Anion Gap BUN Creatinine Est Cr Clr Drug Dosing Est GFR ( Amer) Est GFR (Non-Af Amer) BUN/Creatinine Ratio Glucose Calcium Total Bilirubin Direct Bilirubin AST ALT Alkaline Phosphatase Troponin I 0.025 Total Protein Albumin Specimen Hemolysis PG Care Time/CCT Total # of Minutes Spent Total Time Spent with Patient: Total time spent is greater than 50% in coordination of care (as documented) at patient's floor/unit and/or counseling patient: Coding Level of Care Code 90617 Subseq Hosp Care Lvl 2 Diagnoses Substernal chest pain R07.2 Elevated troponin R79.89 Atrial fibrillation I48.19 Atrial fibrillation type: unspecified persistent Hypertension I10 Hypertension type: essential hypertension Obstructive sleep apnea G47.33 Insomnia G47.00 Insomnia type: unspecified Abnormal LFTs R94.5 Asthma J45.909 Asthma severity: unspecified severity Asthma persistence: unspecified Asthma complication type: unspecified DVT prophylaxis Z29.9 (1) Atrial fibrillation Atrial fibrillation type: unspecified persistent Qualified Code(s): I48.19 - Other persistent atrial fibrillation (2) Hypertension Hypertension type: essential hypertension Qualified Code(s): I10 - Essential (primary) hypertension (3) Insomnia Insomnia type: unspecified Qualified Code(s): G47.00 - Insomnia, unspecified (4) Asthma Asthma severity: unspecified severity Asthma persistence: unspecified Asthma complication type: unspecified Qualified Code(s): J45.909 - Unspecified asthma, uncomplicated
[2019-12-13] MEDS: FOLIC ACID 1 MG TAB PO SCH (20:41)
[2019-12-13] MEDS: LOSARTAN POTASSIUM 25 MG TAB PO SCH (20:41)
[2019-12-13] MEDS: LOSARTAN POTASSIUM 50 MG TAB PO SCH (20:45)
[2019-12-13] MEDS: FLUTICASONE FUROATE 100MCG 14 PUFFS/INHALER INH SCH (20:46)
[2019-12-14] MEDS: AZELASTINE~ORDER AWAITING ACTION SCH ×3 (07:01→23:36)
[2019-12-14 07:05] LABS: BUN Creatinine Ratio 19.8 (10-20); Calcium 8.3 mg/dl (8.5-10.1); Est GFR (African American) 64.5; Est GFR (Non-African American) 55.6; Potassium 3.8 mmol/L (3.5-5.1)
[2019-12-14] MEDS: DOCUSATE SODIUM 100 MG CAP PO SCH (08:21)
[2019-12-14] MEDS: ASPIRIN 81 MG ECTAB PO SCH (08:21)
[2019-12-14] MEDS: METOPROLOL TARTRATE 25 MG TAB PO SCH (08:21)
[2019-12-14] MEDS: TRIAMCINOLONE ACET 0.1% CR 15 GM TUBE TOP SCH ×3 (08:21→21:28)
[2019-12-14] MEDS: DOXYCYCLINE HYCLATE 50 MG CAP PO SCH (08:21)
[2019-12-14] MEDS: GABAPENTIN 400 MG CAP PO SCH ×2 (08:21→21:16)
[2019-12-14] MEDS ORDERED: LORATADINE 10 MG TAB PO SCH ×2 (09:00→21:00)
--- NOTE | 2019-12-14 15:11 | Cardiology Progress Note ---
Date of Service December 14, 2019 Assessment & Plan (1) Elevated troponin: Cardiac catheterization to evaluate for obstructive coronary disease planned for tomorrow to (Sunday). Last apixaban dose was Sunday morning. (2) Substernal chest pain: No recurrence, as above. (3) Atrial fibrillation: Beta-robert held due to to relative bradycardia. (4) Hypertension: After initial period of hypertension, his BP is now normal. If he does have normal coronaries, one possible explanation for his cardiac event would be hypertensive urgency from uncontrolled blood pressure resulting in change in supply/demand mismatch. Admission and Anticipated Discharge Date Admission Date: December 12, 2019 Subjective Uneventful night. Noted to have bradycardia with some asymptomatic pauses on monitor, beta-robert discontinued. He denies any chest pain since hospital admission. Apixaban held for planned cardiac catheterization tomorrow (Sunday). Physical Exam Physical Exam: Normal habitus elderly white male who appears younger than his stated age and appears comfortable. Afebrile. Normotensive today. Mildly bradycardic. Normal respiratory rate. Skin: no ecchymoses or generalized lesions. HEENT: unremarkable. Neck: no JVD or carotid bruits. Lungs: clear. Cardiac: irregular rhythm, 2/6 apical holosystolic murmur which is nonradiating, no diastolic murmur or gallop. Abdomen benign. Extremities: no edema, pulses brisk. Neurologic: normal affect, nonfocal. Results & Data ([facility]) Vital Signs (Past 12 Hours) Vital Signs Temp Pulse Pulse Pulse Resp BP Pulse Ox 12/14/19 11:09 97.7 F 58 L 16 110/67 96 12/14/19 07:40 39 L 12/14/19 07:26 97.9 F 48 L 20 114/67 96 12/14/19 06:05 46 L 12/14/19 05:24 34 L 133/92 12/14/19 04:15 97.5 F L 77 18 132/86 98 12/14/19 03:30 30 L PG Care Time/CCT Total # of Minutes Spent Total Time Spent with Patient: Total time spent is greater than 50% in coordination of care (as documented) at patient's floor/unit and/or counseling patient: Coding Level of Care Code 78143 Subseq Hosp Care Lvl 3 Diagnoses Elevated troponin R79.89 Substernal chest pain R07.2 Atrial fibrillation I48.19 Atrial fibrillation type: unspecified persistent Hypertension I10 Hypertension type: essential hypertension (1) Atrial fibrillation Atrial fibrillation type: unspecified persistent Qualified Code(s): I48.19 - Other persistent atrial fibrillation (2) Hypertension Hypertension type: essential hypertension Qualified Code(s): I10 - Essential (primary) hypertension
[2019-12-14] MEDS: FOLIC ACID 1 MG TAB PO SCH (21:16)
[2019-12-14] MEDS: TRAZODONE HCL 50 MG TAB PO PRN (21:16)
[2019-12-14] MEDS: LOSARTAN POTASSIUM 25 MG TAB PO SCH (21:16)
[2019-12-14] MEDS: LOSARTAN POTASSIUM 50 MG TAB PO SCH (21:16)
[2019-12-14] MEDS: TEMAZEPAM 15 MG CAPSULE PO PRN (21:16)
[2019-12-14] MEDS: FLUTICASONE FUROATE 100MCG 14 PUFFS/INHALER INH SCH (21:17)
--- NOTE | 2019-12-14 21:23 | Hospitalist Progress Note ---
Date of Service December 14, 2019 Assessment & Plan (1) Substernal chest pain: At time of admission. Multiple CAD risk factors with mild troponin elevation concerning for ischemic chest pain. Negative stress echo in 08/2019. 2D echo this admission with intact EF and normal wall motion. In light of the above cardiac cath advised. NPO after MN tonight for cath tomorrow. Cont asa 81mg daily, holding eliquis in anticipation of cath tomorrow. Lipids with high triglycerides --- especially if CAD is found would consider dedicated trig-lowering agent (prescription fish oil, niaspan, etc). If CAD is found will also need statin. Did not tolerate beta robert (bradycardia, pauses) -- thus, beta robert d/c. (2) Elevated troponin: At minimum had myocardial demand ischemia in setting of markedly elevated BP at time of admission. If cath on Sunday shows CAD then this may have been a very mild NSTEMI. Await cath. (3) Atrial fibrillation: Rates were very bradycardic on beta robert - thus, it was d/c today. Hold apixaban in anticipation of cath on Sunday. (4) Hypertension: Uncontrolled at presentation (SBP >200). BPs improved with his home meds, beta robert, and time. Due to bradycardia, however, metoprolol to be d/c. Cont losartan. (5) Obstructive sleep apnea: CPAP nightly (6) Insomnia: Chronic. Stable. Continue Restoril 50 mg p.o. nightly Continue trazodone 100 mg p.o. nightly (7) Abnormal LFTs: Mild elevation in AST and ALT both improved cause?? reactive?? repeat tomorrow am (8) Asthma: No exacerbation at this time. (9) Bradycardia: 2nd to beta robert - d/c such TSH wnl (10) DVT prophylaxis: eliquis on hold for cath on Sunday start IVF at 0600 tomorrow am in anticipation of heart cath updated at bedside today Admission and Anticipated Discharge Date Admission Date: December 12, 2019 Subjective felt a little "whoozy" this am but now resolved. thought his speech was slurry this am but this, too, is not present now. no chest pain, dyspnea, orthopnea, PND. tele overnight - sinus radha down to the 30s; pauses on monitor (3 seconds or less). Review of Systems Constitutional: no fever, no chills, no fatigue and no anorexia Respiratory: no cough, no dyspnea and no dyspnea on exertion Cardiovascular: no chest pain, no dyspnea at rest, no dyspnea on exertion, no orthopnea and no paroxysmal nocturnal dyspnea Physical Exam Constitutional: well developed and well nourished; no acute distress and no altered mental status ENMT: external ear and nose normal, oropharynx normal Respiratory: normal respiratory effort, lungs clear to auscultation Cardiovascular: Rate/Rhythm: regular rate and + irregularly irregular Heart Sounds: normal S1 and normal S2; no murmur Vessels: posterior tibial pulses present and dorsalis pedis pulses present; no JVD Extremities: no edema Gastrointestinal (Abdomen): normal bowel sounds, soft, nontender, no hepatosplenomegaly Neurologic: moves all extremities (strength 5/5 x 4 exts) and awake; no focal motor deficits and not confused speech fluent and clear Psychiatric: A+Ox3, euthymic affect Results & Data ([facility]) Vital Signs (Past 12 Hours) Vital Signs Temp Pulse Pulse Pulse Resp BP Pulse Ox 12/14/19 20:22 36.2 C L 69 24 149/82 H 96 12/14/19 15:31 74 12/14/19 15:23 36.7 C 78 18 123/77 97 12/14/19 11:09 36.5 C 58 L 16 110/67 96 Laboratory Results Laboratory Results - last 24 hr 12/14/19 12/14/19 05:40 05:40 Sodium 137 Potassium 3.8 Chloride 104 Carbon Dioxide 30 Anion Gap 3.0 BUN 24 H Creatinine 1.22 D Est Cr Clr Drug Dosing 53.0 Est GFR ( Amer) 64.5 Est GFR (Non-Af Amer) 55.6 BUN/Creatinine Ratio 19.8 Glucose 105 H Estimat Average Glucose Pending Hemoglobin A1c Pending Calcium 8.3 L Triglycerides 305 H Cholesterol 185 LDL Cholesterol, Calc 77 VLDL Cholesterol, Calc 61 HDL Cholesterol 47 Cholesterol/HDL Ratio 4 PG Care Time/CCT Total # of Minutes Spent Total Time Spent with Patient: Total time spent is greater than 50% in coordination of care (as documented) at patient's floor/unit and/or counseling patient: Coding Level of Care Code 18212 Subseq Hosp Care Lvl 2 Diagnoses Substernal chest pain R07.2 Elevated troponin R79.89 Atrial fibrillation I48.19 Atrial fibrillation type: unspecified persistent Hypertension I10 Hypertension type: essential hypertension Obstructive sleep apnea G47.33 Insomnia G47.00 Insomnia type: unspecified Abnormal LFTs R94.5 Asthma J45.909 Asthma severity: unspecified severity Asthma persistence: unspecified Asthma complication type: unspecified Bradycardia R00.1 DVT prophylaxis Z29.9 (1) Atrial fibrillation Atrial fibrillation type: unspecified persistent Qualified Code(s): I48.19 - Other persistent atrial fibrillation (2) Hypertension Hypertension type: essential hypertension Qualified Code(s): I10 - Essential (primary) hypertension (3) Insomnia Insomnia type: unspecified Qualified Code(s): G47.00 - Insomnia, unspecified (4) Asthma Asthma severity: unspecified severity Asthma persistence: unspecified Asthma complication type: unspecified Qualified Code(s): J45.909 - Unspecified asthma, uncomplicated
[2019-12-15] MEDS ORDERED: SODIUM CHLORIDE 0.9% 1000ML 1,000 ML IV SCH (06:00)
[2019-12-15 06:07] LABS: Estimated Average Glucose 103 mg/dl; Hemoglobin A1C 5.2 % (4.5-5.6)
[2019-12-15] MEDS: AZELASTINE~ORDER AWAITING ACTION SCH (07:44)
[2019-12-15] MEDS: ASPIRIN 81 MG ECTAB PO SCH (08:03)
[2019-12-15 08:18] LABS: BUN Creatinine Ratio 15.9 (10-20); Creatinine Clr Calc Pharmacy 53.9 ml/min; Est GFR (African American) 65.8; Est GFR (Non-African American) 56.8
[2019-12-15] MEDS: GABAPENTIN 400 MG CAP PO SCH (08:54)
[2019-12-15] MEDS: TRIAMCINOLONE ACET 0.1% CR 15 GM TUBE TOP SCH (08:54)
[2019-12-15] MEDS: DOCUSATE SODIUM 100 MG CAP PO SCH (08:54)
[2019-12-15] MEDS: DOXYCYCLINE HYCLATE 50 MG CAP PO SCH (08:55)
[2019-12-15] MEDS ORDERED: ALAVERT D PO SCH (09:00)
--- NOTE | 2019-12-15 09:03 | Pre Anesthesia Assessment ---
Date of Service December 15, 2019 Pre Sedation Assessment Vital Signs Temp Pulse Pulse Pulse Resp BP BP 12/15/19 08:18 98.6 F 86 16 160/114 H 12/15/19 07:25 97.5 F L 57 L 18 164/97 H 12/15/19 07:00 65 12/15/19 03:46 97.2 F L 78 18 143/98 H 12/15/19 02:25 74 12/14/19 23:44 83 12/14/19 23:00 97.3 F L 71 19 116/88 12/14/19 20:22 97.2 F L 69 24 149/82 H 12/14/19 15:31 74 12/14/19 15:23 98.1 F 78 18 123/77 12/14/19 11:09 97.7 F 58 L 16 110/67 Pulse Ox 12/15/19 08:18 99 12/15/19 07:25 96 12/15/19 07:00 12/15/19 03:46 98 12/15/19 02:25 12/14/19 23:44 12/14/19 23:00 96 12/14/19 20:22 96 12/14/19 15:31 12/14/19 15:23 97 12/14/19 11:09 96 Cardiovascular RRR, no murmur, no edema Respiratory normal respiratory effort, lungs clear to auscultation Pre-Sedation Airway Assessment Smoking Status: Never smoker Hx Sleep Apnea: No Hx Difficult Intubation: No Short, Thick Neck: No Thyromental Distance: > or= 3.5 Finger Breadths Oral Cavity: + WNL Mallampati Class: I ASA: ASA3 NPO Status Date of Last Intake of Fluids: 12/14/19 Time of Last Intake of Fluids: 18:00 Date of Last Intake of Solid Food: 12/14/19 Time of Last Intake of Solid Foods: 18:00 Procedure Planning Contraindications for Sedation: none Current Medications Reviewed: Yes Notes The planned sedation has been discussed with the patient. Informed Consent was obtained. I have identified the patient, determined the appropriateness of sedation and have assessed the patient immediately prior to the procedure. All medicine(s) and interventions are by my order.
[2019-12-15] MEDS ORDERED: fentaNYL citrate 100 MCG/2 ML VIAL ONE (09:07)
[2019-12-15] MEDS ORDERED: NiCARDipine HCL INJ 2.5 MG/ML 10 ML AMP ONE (09:07)
[2019-12-15] MEDS ORDERED: MIDAZOLAM HCL 1 MG/ML 2ML VIAL ONE (09:07)
[2019-12-15] MEDS ORDERED: HEPARIN (PORCINE) 1000 UNIT/ML 10 ML (CATH LAB USE ONLY) ONE (09:07)
[2019-12-15] MEDS ORDERED: NITROGLYCERIN/D5W 100MCG/ML 20ML SYR ONE (09:08)
--- NOTE | 2019-12-15 09:33 | Post Anesthesia Assessment ---
Date of Service December 15, 2019 Post Sedation Assessment Vital Signs Temp Pulse Pulse Pulse Resp BP BP 12/15/19 08:18 98.6 F 86 16 160/114 H 12/15/19 07:25 97.5 F L 57 L 18 164/97 H 12/15/19 07:00 65 12/15/19 03:46 97.2 F L 78 18 143/98 H 12/15/19 02:25 74 12/14/19 23:44 83 12/14/19 23:00 97.3 F L 71 19 116/88 12/14/19 20:22 97.2 F L 69 24 149/82 H 12/14/19 15:31 74 12/14/19 15:23 98.1 F 78 18 123/77 12/14/19 11:09 97.7 F 58 L 16 110/67 Pulse Ox 12/15/19 08:18 99 12/15/19 07:25 96 12/15/19 07:00 12/15/19 03:46 98 12/15/19 02:25 12/14/19 23:44 12/14/19 23:00 96 12/14/19 20:22 96 12/14/19 15:31 12/14/19 15:23 97 12/14/19 11:09 96 Recovery Score Activity: Moves 4 extremities Respiration: Deep Breath/Cough Circulation: +/-20% PreAnes Value Consciousness: Fully Awake Oxygen Saturation: O2 needed for >90% Discharge Sedation Level of Care: Fast Track Phase II Post Sedation Plan On clinical assessment, the patient appears to have tolerated the sedation without complications. Patient is recovering as anticipated. Patient will continue to be monitored by nursing and may be discharged when sedation discharge criteria are met per below protocol. Upon Completions of procedure up to 15 minutes continue every 5 minute vital signs and the P.A.R. score; then discharge to a Phase I or Fast Track to Phase II per the following guidelines: * Discharge Patient to appropriate Phase II area if PAR is 8 or greater or return to pre- procedure baseline. The post - procedure orders will be as directed. * If PAR score is less than 8 or not return to pre-procedure baseline then patient will follow Phase I monitoring till PAR is reached for Phase II. The Phase I may be done in procedure room or may call to secure a Phase I area. * If naloxone or flumazenil are used for reversal, hold in Phase I for continued monitoring from when last reversal dose was given for a minimum of 60 minutes or longer pending the nurse and/or physician discretion of patient condition before discharge to Phase II. Please call the Sedation Physician to re-evaluate and complete post-note for discharge to Phase II area. Do NOT discharge from procedure sedation or Phase 1 until post- sedation evaluation note is complete by procedure /sedation MD Sedation Discharge Instructions to be given to the patient at discharge to home.
--- NOTE | 2019-12-15 09:40 | Cardiac Catheterization ---
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 [employer] Cardiac Status Clinical evaluation leading to the procedure CAD Presenation: Non STEMI Anginal Classification: CCS IV Heart Failure: No Cardiogenic Shock within 24 Hours: No Cardiac Arrest within 24 Hours: No Imaging Studies Past 6 Months: Yes Stress Studies Past 6 Months: No Diagnostic Physicians Name: Blake Christensen MD Status: Elective Closure Device Percutaneous Entry Location: Radial Closure Device: Radial Band Recommendations: Medical Therapy and/or Counseling Intraprocedure Events Significant Disection: No Perforation: No Cardiac Cath Procedure Full Procedure Date December 15, 2019 Pre-Procedure Diagnosis Pre-Procedure Diagnosis: Non STEMI AUC Score AUC Score: 8 Post-Procedure Diagnosis Post-Procedure Diagnosis: Mild CAD and Normal Intracardiac Pressures Procedure(s) Performed Procedure(s) Performed: Coronary Angiography and Left Heart Cath Book Trimmer Blake Christensen MD Apparel Machinery Instructor(s) [place] Estimated Blood Loss Estimated Blood Loss: 5 Medication(s) Medication(s): Fentanyl, Heparin, Lidocaine 1%, Nicardipine, Nitroglycerin and Versed Summary of Findings Indication: NSTEMI Access: 6 Fr right radial artery slender Catheters: [place] Findings: LM -medium caliber vessel, angiographically normal LAD -medium caliber vessel, proximal luminal irregularities, 30% mid segment disease after takeoff of second diagonal. 20 to 30% earlydistal disease with some myocardial bridging. Distal vessel wraps around apex. DEVORA II-III flow distally. Small second diagonal with 30% proximal disease. Circumflex -medium caliber vessel, 30 to 40% proximal disease, mid segment luminal irregularities. RCA -dominant, large caliber vessel, gives off large PDA, PLB. Angiographically normal. LVEDP -5 Arterial Closure: TR band Summary: 1. Mild nonobstructive coronary artery disease -30% mid LAD 30 to 40% proximal circumflex 2. Normal intracardiac filling pressure Recommendations: Continued ASCVD risk factor modification including improved blood pressure control. Continued rate control for atrial fibrillation and anticoagulation with Eliquis Hemodynamics Rest Ao:: 116/77/94 Final Ao: 125/75/95 LV: 130/5 Recommendations Recommendations: Medical Therapy and/or Counseling Specimens Specimens: None Radiation Exposure (mGy) 496 Contrast (mls) 80 Fluids (cc crystalloids) Fluids (cc crystalloids): 147 Drains Drains: none Anesthesia moderate Procedural Complication(s) None Disposition U[employer]rella [employer] Holding/Recovery I attest to the content of the Intraoperative Record and any orders documented therein. Any exceptions are noted below. [facility] Card Cath Procedure Codes Cardiac Catheterization Procedure 1: Cardiovascular Cath Procedures: 47583 Coronaries and LHC (+/-LV) Moderate Sedation Procedure 1: Sedation/Anesthesia: 58007 Mod Sedation by the same physician;Init15 Min Child Age 5 & Up PG Care Time/CCT Total # of Minutes Spent Total Time Spent with Patient: Total time spent is greater than 50% in coordination of care (as documented) at patient's floor/unit and/or counseling patient:
[2019-12-15] MEDS ORDERED: SODIUM CHLORIDE 0.9% 500 ML IV SCH (09:45)
--- NOTE | 2019-12-15 12:06 | Cardiology Progress Note ---
Date of Service December 15, 2019 Assessment & Plan (1) Non-occlusive coronary artery disease requiring drug therapy: Although nonocclusive, the patient does now carry diagnosis of coronary artery disease and should therefore have appropriate vascular risk factor management. Although LDL favorable (77), in the presence of known coronary artery disease would initiate statin (could be lower dose given his already favorable LDL and his age, atorvastatin 20 mg daily) He has no bleeding issues on apixaban, would add aspirin 81 mg daily since his recent cardiac event could have been a transient thrombotic event (which would have occurred on anticoagulation). If he has marked ecchymoses or easy bleeding tendencies, could reduce aspirin to 81 mg every other day after a month or so. Recommend more aggressive blood pressure control, since he does not tolerate negative chronotropic's (beta-robert resulted in bradycardia), and since an alternative explanation for his recent cardiac event is coronary spasm, recommend amlodipine 2.5 mg daily (could titrate to 5 mg if BP remains elevated). Cardiology follow-up in 1 to 2 months (please arrange outpatient appointment with me prior to patient's discharge, thank you) (2) Permanent atrial fibrillation: Rate controlled without the need for negative chronotropic medication. Restart apixaban, as noted add aspirin for coronary artery disease. (3) HTN (hypertension): As above, initiate amlodipine 2.5 mg daily. Admission and Anticipated Discharge Date Admission Date: December 12, 2019 Subjective Patient doing well post right radial artery cardiac catheterization. No chest pain, dyspnea, or other complaints. Ventricular rate has been appropriate but BP remains mildly hypertensive. Catheterization showed nonocclusive disease only (30 to 40% mid LAD and proximal circumflex stenoses). Physical Exam Physical Exam: No distress. Skin: no ecchymoses or generalized lesions. HEENT: unremarkable. Neck: no JVD or carotid bruits. Lungs: clear. Cardiac: irregular rhythm, 2/6 apical holosystolic murmur which is nonradiating, no diastolic murmur or gallop. Abdomen benign. Extremities: no edema, pulses brisk. Right wrist cath site neurovascular intact, no hematoma. Neurologic: normal affect, nonfocal. Results & Data ([facility]) Vital Signs (Past 12 Hours) Vital Signs Temp Pulse Pulse Pulse Resp BP BP 12/15/19 10:00 98.1 F 78 16 149/98 H 12/15/19 09:49 73 18 149/89 H 12/15/19 09:47 74 18 144/104 H 12/15/19 09:35 92 H 18 145/92 H 12/15/19 08:18 98.6 F 86 16 160/114 H 12/15/19 07:25 97.5 F L 57 L 18 12/15/19 07:00 65 12/15/19 03:46 97.2 F L 78 18 12/15/19 02:25 74 BP Pulse Ox 12/15/19 10:00 98 12/15/19 09:49 97 12/15/19 09:47 95 12/15/19 09:35 95 12/15/19 08:18 99 12/15/19 07:25 164/97 H 96 12/15/19 07:00 12/15/19 03:46 143/98 H 98 12/15/19 02:25 PG Care Time/CCT Total # of Minutes Spent Total Time Spent with Patient: Total time spent is greater than 50% in coordination of care (as documented) at patient's floor/unit and/or counseling patient: Coding Level of Care Code 85389 Subseq Hosp Care Lvl 3 Diagnoses Non-occlusive coronary artery disease requiring drug therapy I25.10 Permanent atrial fibrillation I48.21 HTN (hypertension) I10
--- NOTE | 2019-12-15 16:45 | Discharge Summary ---
Date of Service December 15, 2019 Admission HPI Per Admitting Provider Patient is a pleasant 79-year-old male with history of hypertension/hyperlipidemia/atrial fibrillation on apixaban anticoagulation presenting with chest pain. Patient reports that this afternoon around 1330 he had acute onset of chest discomfort, bandlike between his nipples, 10 of 10 in severity with radiation to his jaw. The pain lasted approximately 10 to 15 minutes then resolved completely. He had a second episode approximately 30 minutes later which was very similar to the first and resolved as well. He denies associated diaphoresis, shortness of breath, nausea, vomiting, palpitations or dizziness. He had a similar episode in July although enzymes remain negative. He was seen by cardiology on 08/12/2019 and had a dobutamine stress echocardiogram performed which was negative for inducible ischemia. ER course, aspirin 324, normal saline Principal Diagnosis NSTEMI Discharge Exam Constitutional WD/WN, vitals as above Eyes EOM intact bilaterally; no conjunctival abnormality ENMT external ear and nose normal, oropharynx normal Neck trachea midline, no thyromegaly normal visual inspection Respiratory normal respiratory effort, lungs clear to auscultation no respiratory distress Cardiovascular RRR, no murmur, no edema Gastrointestinal (Abdomen) Inspection/Auscultation: abdomen normal to inspection; abdomen not distended Musculoskeletal no cyanosis or clubbing, extremities motor strength 5/5 Skin no rashes, warm and dry Neurologic moves all extremities and awake Psychiatric Orientation: alert, oriented to person and cooperative Discharge Data Allergies Allergy/AdvReac Type Severity Reaction Status Date / Time sunflower seed Allergy Mild . Verified 12/12/19 17:27 pramipexole [From Mirapex] Allergy makes Verified 12/12/19 17:27 extremely sleppy Consultations 12/12/19 20:20 ED Decision to Admit Stat 12/12/19 23:29 Consult Cardiology Routine Procedures Performed Operation Date: 12/15/19 11:00 Actual Procedures p Cath, Left with Cors and Vent - Duran Christensen MD s Cineradiography w/Routine Exam - Duran Christensen MD Ordered Studies 12/15/19 11:00 CL Cath Imgs for PACS use only Routine Hospital Course (1) Substernal chest pain: At time of admission. Multiple CAD risk factors with mild troponin elevation concerning for ischemic chest pain. Negative stress echo in 08/2019. - On cath on 12/14, he had only mild/moderate CAD. - Cont asa 81mg daily, holding Eliquis in anticipation of cath tomorrow. - Started atorvastatin as well. (2) Elevated troponin: At minimum had myocardial demand ischemia in setting of markedly elevated BP at time of admission. - As above (3) Atrial fibrillation: Rates were very bradycardic on beta robert - thus, it was stopped. - Hold apixaban in anticipation of cath on Sunday. (4) Hypertension: Uncontrolled at presentation (SBP >200). Due to bradycardia, did not tolerate beta-robert. - Started amlodipine 2.5 mg HS. Can increase dose if needed as outpatient. - Cont losartan. (5) Obstructive sleep apnea: CPAP nightly (6) Insomnia: Chronic. Stable. Continue Restoril 50 mg p.o. nightly Continue trazodone 100 mg p.o. nightly (7) Abnormal LFTs: Mild elevation in AST. Likely as a result of mild NSTEMI. (8) Asthma: No exacerbation at this time. (9) Bradycardia: 2nd to beta robert - d/c such Total Time Total Time Spent Total Time Spent (In Minutes): 35 Discharge Plan Discharge Items Patient Disposition: Home - Self-Care Reason For Visit: CHEST PAIN Discharge Diagnosis: Chest pain Activity: Resume your previous activity Non-emergency contact: Primary Care Provider and Supervisor [employer] Call non-emergency contact if: your symptoms worsen, your pain is not controlled and your pain is worsening Follow-up/Referrals: Arnold Barrera MD [Physician] - 01/15/20 1:30 pm (Please see Dr. Barrera in 1-2 months.) Justa Moore MD [Primary Care Provider] - 12/22/19 10:20 am Diet: Heart Healthy Addtl Attending Provider Instructions: Mr. Steve, You were admitted to the hospital with symptoms consistent with a heart attack. You did have lab values (called troponins) that showed some stress on the heart, but fortunately, your enzymes never indicated a major heart attack. We did a coronary catheterization which showed some mild "coronary artery disease" or plaque in the blood vessels in the heart. We are adding a baby aspirin (81mg) to prevent any blood clots in the heart (which would cause a heart attack), as well as a medication to help lower your blood pressure. Finally, we are starting a medication called atorvastatin to help reduce the chance of a plaque breaking open and causing a heart attack. We would like you to see your PCP and Dr. Barrera in the office in 1-2 months to be sure you're tolerating these medications well. Finally, we will recommend a acid-robert to be sure no heartburn-related symptoms are worsening this or playing a role. Pending Studies at Discharge: No Stand-Alone Forms: [facility], Smoking Cessation Medications and DC Order Prescriptions: New aspirin 81 mg Tablet,Delayed Release (Dr/Ec) 81 mg PO QAM Qty: 1 RF: 0 atorvastatin 20 mg tablet 20 mg PO HS Qty: 30 RF: 0 amlodipine 2.5 mg tablet 2.5 mg PO HS Qty: 30 RF: 0 pantoprazole 20 mg tablet,delayed release (DR/EC) 20 mg PO DAILY 28 Days Qty: 28 RF: 0 Continued docusate sodium [Dulcolax Stool Softener (dss)] 100 mg capsule 100 mg PO DAILY RF: 0 trazodone 50 mg tablet 50 - 100 mg PO HS PRN (Reason: sleeplessness) Qty: 60 RF: 5 temazepam 15 mg capsule 15 mg PO HS PRN (Reason: insomnia) Qty: 90 RF: 0 apixaban 5 mg tablet 5 mg PO BID Qty: 180 RF: 3 triamcinolone acetonide 0.1 % cream 1 appln topical TID Qty: 240 RF: 1 Alavert D-12 Allergy-Sinus 5-120 mg tablet extended release 12 hr 1 tab PO Q12H Qty: 180 RF: 1 gabapentin 400 mg capsule 400 mg PO BID Qty: 60 RF: 5 calcium carbonate-vit D3-min 600 mg calcium- 400 unit tablet 1 tab PO DAILY RF: 0 prednisone 10 mg tablet See Rx Instructions PO DAILY Qty: 30 RF: 0 meclizine 25 mg tablet 25 mg PO BID PRN (Reason: Vertigo) Qty: 60 RF: 0 azelastine 137 mcg (0.1 %) aerosol,spray 2 sprays intranasal BID Qty: 3 RF: 0 epinephrine 0.3 mg/0.3 mL auto-injector 0.3 ml IM UD PRN (Reason: anaphylaxis) Qty: 1 RF: 0 beclomethasone dipropionate 80 mcg/actuation HFA aerosol breath activated 1 puffs inhalation HS Qty: 1 RF: 0 albuterol sulfate 90 mcg/actuation HFA aerosol inhaler 1 - 2 puffs inhalation Q4H PRN (Reason: shortness of breath) Qty: 1 RF: 0 losartan 50 mg tablet 50 mg PO QPM RF: 0 losartan 25 mg tablet 25 mg PO QPM RF: 0 xqlwolwuml-eektqzj-dzalsjcr 50-325-40 mg capsule 1 cap PO Q6H PRN (Reason: Migraine Headache) RF: 0 folic acid 1 mg tablet 1 mg PO HS RF: 0 doxycycline hyclate 50 mg capsule 50 mg PO DAILY RF: 0 Discharge Orders: Discharge Order (Routine); Ordered 12/15/19 Ordered By: Peña Chowdary/Other Patient Handouts: Hypertension Control, Choices Low Salt, High Blood Pressure Risk Factors, Cath Cardiac Dc, PAD and Hypertension, Transradial Cardiac Cath Admission Data Admit Date/Time: 12/12/19 21:49 Attending Provider: Peña Del Rosario Admit Provider: Thu Ceron Primary Care Provider: Justa Moore Other Providers: Peña Del Rosario ; Thu Ceron ; Arnold Barrera Other Interventions: Discharge Summary Assessment (RN) Last Done: 12/15/19 13:46 DC Date/Time DO NOT enter until pt leaves facility: 12/15/19 14:58 Coding Level of Care Code D/C Day Management >30 mins Diagnoses Substernal chest pain R07.2 Elevated troponin R79.89 Atrial fibrillation I48.19 Atrial fibrillation type: unspecified persistent Hypertension I10 Hypertension type: essential hypertension Obstructive sleep apnea G47.33 Insomnia G47.00 Insomnia type: unspecified Abnormal LFTs R94.5 Asthma J45.909 Asthma severity: unspecified severity Asthma persistence: unspecified Asthma complication type: unspecified Bradycardia R00.1
== END 2019-12-15 14:58 | disposition home or self-care (01) | DRG 281 ==
LOC: ED 15:56 → SUATTDRO 21:49 → 2W 21:49 → 2N 12-15 01:28 → 2E 12-15 10:16

== ENCOUNTER 2023-07-16 11:13 | Inpatient (IN) ==
[2023-07-16] MEDS ORDERED: SODIUM CHLORIDE 0.9% 1,000 ML IV ONE (11:39)
--- NOTE | 2023-07-16 11:43 | Emergency Department Note ---
Impression & Plan Recurrent falls, A-fib, Expressive aphasia, Bradycardia, Closed rib fracture ED Provider Note NAME: NOA DIALLO AGE: 82 SEX: M : 1940 ARRIVES VIA: Ambulance INFORMANT: Patient ED PROVIDER(S): Scott Richard DO CHIEF COMPLAINT: Weakness and expressive aphasia HPI: Patient is an 82-year-old male with a past medical history of A-fib, hypertension who presents to the ER for several episodes of falling. On Sunday had an episode where he could not get any words out with the exception of whispering for about 30 minutes. He also fell in the shower today. Earlier today he had the same episode where he was having trouble getting his words out. He denies hitting his head. He believes he fell in the bathroom while trying to put his pants on. Denies any chest pain, shortness of breath, nausea, vomiting, or diarrhea. No dysuria, urgency, or frequency. No other exacerbating or remitting factors. Additional history provided by who notes that earlier today he was lying on the bed and having trouble getting his words out. He is back to baseline. He also admits to lower lumbar pain which is the same type pain that he typically has but just slightly to the right of the spine which is new. ADDITIONAL HISTORY OBTAINED: Per HPI Chronic Medical/Social Conditions Affecting Care: Per HPI PAST MEDICAL HISTORY:See Below PAST SURGICAL HISTORY:See Below FAMILY HISTORY:See Below SOCIAL HISTORY:See Below HOME MEDICATIONS:See Below ALLERGIES:See Below VITALS:See Below PHYSICAL EXAMINATION: GENERAL: Sitting up in bed, alert, well appearing, well nourished, no distress, non-toxic EYE EXAM: normal conjunctiva. PERRL and EOM's grossly intact. OROPHARYNX: mucous membranes are moist LUNGS: Clear to auscultation. Normal chest wall mechanics HEART: no murmurs, S1 normal and S2 normal ABDOMEN: abdomen soft, non-tender, normo-active bowel sounds, no masses, no rebound or guarding. BACK: Back is symmetrical on inspection and there is no deformity, no midline tenderness, no CVA tenderness. SKIN: no rashes and no bruising UPPER EXTREMITIES: upper extremities are grossly normal. LOWER EXTREMITIES: No pitting edema. NEURO EXAM: Normal sensorium, cranial nerves II-XII intact, normal speech, no weakness of arms, no weakness of legs. No drift. Finger to nose intact. Gross sensation intact. MEDICAL DECISION MAKING: Patient is an 82-year-old male who presents to the ER for the above-stated complaint. IV was established blood work was obtained. Labs show mild leukopenia 3.9. Hemoglobin stable at 13. Platelets 1 6. BMP with LFTs bilirubin was fairly unremarkable. Troponin was negative. Lipase unremarkable. UA was clean. CT angio of the head and neck was negative. Patient is complete ly neurologically intact on my exam. He was updated bedside. On the monitor his heart rate varied in A-fib in the 30s to 60s. He does have periods of pauses for about 3 to 4 seconds. 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 With this combination with the presenting symptoms he was discussed with the hospitalist Dr. Walsh for further evaluation management treatment. External Records Reviewed: Follows with cardiology and will continue apixaban per Consults/Care Managements Discussions: Per [facility] Triage Nursing notes reviewed. Limited review of prior medical records performed Vital Signs: reviewed and remarkable for no significant abnormalities Differential diagnosis: Differential Diagnosis includes but is not limited to ischemic Stroke, hemorrhagic stroke, bells palsy, mass, neoplasm, migraine headache, seizure, subarachnoid hemorrhage, TIA, and transient global amnesia. ER treatment provided: See below Diagnostics interpreted by me include EKG and cardiac monitoring as listed below: -Cardiac Monitoring: An order was placed for continuous cardiac monitoring. The monitor shows a rate of 45 with A-fib rhythm. -ECG: A-fib rate of 47 Septal Q waves QTc 408 -Laboratory studies:Interpreted by me as stated above in MDM and shown below. Imaging studies: Xrays: As interpreted by me: Portable AP upright 1 view the chest shows no focal infiltrate X-rays of the lumbar spine show no acute fracture X-ray of the chest per radiology shows 2 rib fractures CTs show: CT head was negative Procedures:none Critical Care: None Past Med/Surg History Medical History (Updated 07/16/23 @ 14:40 by Scott Richard DO) Afib Allergic rhinitis HTN (hypertension), benign Hypercholesterolemia Lumbar facet joint syndrome Lumbar radiculopathy Lumbar stenosis Obstructive sleep apnea Prostate cancer Restless legs syndrome Rosacea Sensorineural hearing loss (SNHL) of right ear with restricted hearing of left ear 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, 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 Sleep apnea Status post placement of bone anchored hearing aid (BAHA) Tinnitus Tremor Vitamin D deficiency Surgical History S/P left knee surgery S/P prostatectomy Family History Family/Other Diabetes Hypertension Brother Diabetes Mother Diverticulitis Father Esophageal cancer Grandfather (Maternal) Stroke Other No family history of adverse response to anesthesia No family history of bleeding disorder Denies family history of Ovarian cancer Prostate cancer Myocardial infarction Breast cancer Colorectal cancer Social History Smoking Status: Never smoker Second Hand Exposure: Yes (parents smoked); Do You Dip or Chew Tobacco: No; Hx Alcohol Use: Yes Alcohol type: beer, wine and other Alcohol Intake Frequency: 4 or More x per/Week Alcohol Intake Frequency Comment: 2 drinks a day- drink before dinner and wine with dinner Hx Substance Use: No Preferred Language: Polish Visual Impairment: No Limitations Hearing Ability: Use of Hearing Aid Beliefs That Will Affect Care: None marital status: Current Living Situation: Spouse Current Living Situation Comment: lives with Kaela current occupational status: retired 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 Verified 06/13/23 13:07 house dust Allergy Verified 06/13/23 13:07 pramipexole [From Mirapex] Allergy makes Verified 06/13/23 13:07 extremely sleepy ragweed pollen Allergy Verified 06/13/23 13:07 tree and shrub pollen Allergy Verified 06/13/23 13:07 divalproex sodium AdvReac Severe Tachycardia Verified 06/13/23 13:07 Home Meds Home Medications Medication Instructions Recorded Confirmed docusate sodium 100 mg capsule 100 mg PO DAILY 07/21/19 07/16/23 (Dulcolax Stool Softener (docusate)) meclizine 25 mg tablet 25 mg PO TID PRN dizziness 07/13/20 07/16/23 beclomethasone dipropionate 80 2 inh inhalation HS PRN Other 09/04/22 07/16/23 mcg/actuation HFA breath activated aerosol calcium carb-vit D3-minerals 600 1 tab PO BID 12/08/22 07/16/23 mg calcium-400 unit tablet fluticasone propionate 50 2 spray intranasal DAILY PRN Other 07/16/23 07/16/23 mcg/actuation nasal spray,suspension hydrocodone 5 mg-acetaminophen 325 1 tab PO TID PRN Pain 07/16/23 07/16/23 mg tablet metronidazole 1 % topical cream 1 applic topical DAILY PRN Other 07/16/23 07/16/23 triamcinolone acetonide 0.1 % See Rx Instructions .Route 07/16/23 07/16/23 topical cream .COMPLEX PRN Other Previous Rx's Medication Instructions Recorded albuterol sulfate 90 mcg/actuation See Rx Instructions inhalation 03/03/22 aerosol inhaler .COMPLEX PRN shortness of breath #8.5 grams nitroglycerin 0.4 mg sublingual 0.4 mg sublingual Q5M #25 tabs 07/11/22 tablet losartan 50 mg tablet 50 mg PO QPM #90 tabs 08/04/22 apixaban 5 mg tablet 5 mg PO BID #180 tabs 09/05/22 folic acid 1 mg tablet 1 mg PO HS #30 tabs 12/01/22 gabapentin 400 mg capsule See Rx Instructions .Route 12/18/22 .COMPLEX #60 caps amlodipine 5 mg tablet 5 mg PO DAILY #90 tabs 01/23/23 losartan 25 mg tablet 25 mg PO QPM #30 tabs 02/28/23 atorvastatin 20 mg tablet 20 mg PO HS #90 tabs 04/23/23 cyclobenzaprine 10 mg tablet 10 mg PO TID PRN muscle spasm #30 04/26/23 tabs tramadol 50 mg tablet See Rx Instructions PO .COMPLEX 05/24/23 PRN Pain #30 tabs temazepam 15 mg capsule 15 mg PO HS PRN sleep #90 caps 06/06/23 trazodone 50 mg tablet See Rx Instructions .Route 06/11/23 .COMPLEX #60 tabs aspirin 81 mg tablet,delayed 81 mg PO DAILY #30 tabs 07/12/23 release Results & Data (ED) Vital Signs Vital Signs - 24 hr 07/16/23 11:18 07/16/23 11:20 07/16/23 11:21 Temperature 36.9 C Temperature Source Oral Pulse Rate 58 L 47 L 47 L Pulse Rate [Apical] Pulse Rhythm Regular Irregular Pulse Rhythm [Apical] Pulse Strength Normal Pulse Strength [Apical] Respiratory Rate 20 18 Respiratory Effort / Characteristics Non-Labored Spontaneous Respiratory Depth Normal Respiratory Pattern Regular Blood Pressure 155/83 H Blood Pressure [Right Arm] Blood Pressure Mean 107 Blood Pressure Mean [Right Arm] Blood Pressure Position Sitting Blood Pressure Position [Right Arm] Pulse Oximetry 96 94 Oxygen Delivery Method Room Air Nasal Cannula Room Air Sepsis Recent Fever Within 48 Hours No Sepsis New/Unexplained Change in Mental Status No Sepsis Action Taken by Nursing No Action Required 07/16/23 11:30 07/16/23 11:31 07/16/23 12:00 Temperature Temperature Source Pulse Rate 42 L Pulse Rate [Apical] 42 L 39 L Pulse Rhythm Pulse Rhythm [Apical] Irregular Irregular Pulse Strength Pulse Strength [Apical] Normal Normal Respiratory Rate 20 20 Respiratory Effort / Characteristics Non-Labored Spontaneous Non-Labored Spontaneous Respiratory Depth Normal Normal Respiratory Pattern Regular Regular Blood Pressure Blood Pressure [Right Arm] 155/83 H 148/75 H Blood Pressure Mean Blood Pressure Mean [Right Arm] 107 99 Blood Pressure Position Blood Pressure Position [Right Arm] Sitting Sitting Pulse Oximetry 94 98 Oxygen Delivery Method Room Air Room Air Sepsis Recent Fever Within 48 Hours Sepsis New/Unexplained Change in Mental Status Sepsis Action Taken by Nursing 07/16/23 11:45 Temperature Temperature Source Pulse Rate Pulse Rate [Apical] 44 L Pulse Rhythm Pulse Rhythm [Apical] Irregular Pulse Strength Pulse Strength [Apical] Normal Respiratory Rate 18 Respiratory Effort / Characteristics Non-Labored Spontaneous Respiratory Depth Normal Respiratory Pattern Regular Blood Pressure Blood Pressure [Right Arm] 151/77 H Blood Pressure Mean Blood Pressure Mean [Right Arm] 101 Blood Pressure Position Blood Pressure Position [Right Arm] Sitting Pulse Oximetry 96 Oxygen Delivery Method Room Air Sepsis Recent Fever Within 48 Hours Sepsis New/Unexplained Change in Mental Status Sepsis Action Taken by Nursing Laboratory Data 07/16/23 11:29 07/16/23 11:29 Lab Results 07/16/23 07/16/23 07/16/23 Range/Units 11:29 11:29 11:35 WBC 3.96 L (4.8-10.8) K/ul RBC 4.00 L (4.70-6.10) M/uL Hgb 13.0 L (14.0-18.0) g/dl POC Hgb 12.2 L (14.0-18.0) g/dl Hct 37.2 L (42.0-52.0) % POC Hct 36 L (42-52) % MCV 93.0 (80.0-100.0) fL MCH 32.5 (25.0-34.0) pg MCHC 34.9 (32.0-36.0) g/dL RDW Std Deviation 47.8 H (36.4-46.3) fL RDW Coeff of Trudi 14.0 (11.5-14.5) % Plt Count 116 L (130-400) K/uL MPV 9.7 (9.4-12.4) fL Immature Gran % (Auto) 0.3 % Neut % (Auto) 60.0 % Lymph % (Auto) 28.3 % Addison % (Auto) 6.8 % Eos % (Auto) 3.8 % Baso % (Auto) 0.8 % Neut # (Auto) 2.38 (1.40-6.50) K/uL Lymph # (Auto) 1.12 L (1.20-3.40) K/uL Addison # (Auto) 0.27 (0.11-0.59) K/uL Eos # (Auto) 0.15 (0.00-0.50) K/uL Baso # (Auto) 0.03 (0.00-0.20) K/uL Immature Gran # (Auto) 0.01 (0.01-0.20) K/uL POC Sodium 140 (135-144) mmol/L Sodium 139 (136-145) mmol/L POC Potassium 4.0 (3.3-5.0) mmol/L Potassium 4.0 (3.5-5.1) mmol/L POC Chloride 105 (101-112) mmol/L Chloride 107 (98-107) mmol/L Carbon Dioxide 27 (21-32) mmol/L POC Total CO2 26 (24-31) mmol/L Anion Gap 5 (3-11) POC Anion Gap 14.0 L (16-25) mmol/L POC BUN 16 (7-18) mg/dl BUN 17 (6-23) mg/dl Creatinine 1.07 (0.6-1.4) mg/dl POC Creatinine 1.1 (0.6-1.3) mg/dl Est Cr Clr Drug Dosing 57.4 ml/min Est GFR ( Amer) 74.0 ml/min Est GFR (Non-Af Amer) 63.9 ml/min BUN/Creatinine Ratio 15.9 (10-20) Glucose 100 H (70-99(Fasting)) mg/dl POC Glucose (other) 99 (70-99) mg/dl Calcium 9.1 (8.6-10.3) mg/dl POC Ioniz Calcium Fabio 1.21 (1.12-1.32) mmol/l Total Bilirubin 1.5 H (0.2-1.0) mg/dl AST 19 (13-39) U/L ALT 16 (7-52) U/L Alkaline Phosphatase 68 (34-104) U/L Troponin I High Sens 8.1 (0-20) pg/ml Total Protein 6.3 (6.0-8.3) gm/dl Albumin 3.9 (3.4-5.0) gm/dl Globulin 2.4 L (2.5-4.0) gm/dl Albumin/Globulin Ratio 1.6 (0.9-2) Lipase 55 (11-82) U/L Urine Color Urine Appearance (Clear) Urine pH (4.5-7.5) Ur Specific [place] (1.000-1.030) Urine Protein (Negative) Urine Glucose (UA) (Negative) Urine Ketones (Negative) Urine Blood (Negative) Urine Nitrite (Negative) Urine Bilirubin (Negative) Urine Urobilinogen (Negative) Ur Leukocyte Esterase (Negative) Urine WBC (Auto) (0-5) /hpf Urine RBC (Auto) (0-4) /hpf U Hyaline Cast (Auto) (0-5) /lpf U Epithel Cells (Auto) (0-5) /lpf Urine Bacteria (Auto) (Negative) 07/16/23 Range/Units 13:00 WBC (4.8-10.8) K/ul RBC (4.70-6.10) M/uL Hgb (14.0-18.0) g/dl POC Hgb (14.0-18.0) g/dl Hct (42.0-52.0) % POC Hct (42-52) % MCV (80.0-100.0) fL MCH (25.0-34.0) pg MCHC (32.0-36.0) g/dL RDW Std Deviation (36.4-46.3) fL RDW Coeff of Trudi (11.5-14.5) % Plt Count (130-400) K/uL MPV (9.4-12.4) fL Immature Gran % (Auto) % Neut % (Auto) % Lymph % (Auto) % Addison % (Auto) % Eos % (Auto) % Baso % (Auto) % Neut # (Auto) (1.40-6.50) K/uL Lymph # (Auto) (1.20-3.40) K/uL Addison # (Auto) (0.11-0.59) K/uL Eos # (Auto) (0.00-0.50) K/uL Baso # (Auto) (0.00-0.20) K/uL Immature Gran # (Auto) (0.01-0.20) K/uL POC Sodium (135-144) mmol/L Sodium (136-145) mmol/L POC Potassium (3.3-5.0) mmol/L Potassium (3.5-5.1) mmol/L POC Chloride (101-112) mmol/L Chloride (98-107) mmol/L Carbon Dioxide (21-32) mmol/L POC Total CO2 (24-31) mmol/L Anion Gap (3-11) POC Anion Gap (16-25) mmol/L POC BUN (7-18) mg/dl BUN (6-23) mg/dl Creatinine (0.6-1.4) mg/dl POC Creatinine (0.6-1.3) mg/dl Est Cr Clr Drug Dosing ml/min Est GFR ( Amer) ml/min Est GFR (Non-Af Amer) ml/min BUN/Creatinine Ratio (10-20) Glucose (70-99(Fasting)) mg/dl POC Glucose (other) (70-99) mg/dl Calcium (8.6-10.3) mg/dl POC Ioniz Calcium Fabio (1.12-1.32) mmol/l Total Bilirubin (0.2-1.0) mg/dl AST (13-39) U/L ALT (7-52) U/L Alkaline Phosphatase (34-104) U/L Troponin I High Sens (0-20) pg/ml Total Protein (6.0-8.3) gm/dl Albumin (3.4-5.0) gm/dl Globulin (2.5-4.0) gm/dl Albumin/Globulin Ratio (0.9-2) Lipase (11-82) U/L Urine Color Yellow Urine Appearance Clear (Clear) Urine pH 6.0 (4.5-7.5) Ur Specific [place] 1.007 (1.000-1.030) Urine Protein Negative (Negative) Urine Glucose (UA) Negative (Negative) Urine Ketones Negative (Negative) Urine Blood 1+ H (Negative) Urine Nitrite Negative (Negative) Urine Bilirubin Negative (Negative) Urine Urobilinogen Negative (Negative) Ur Leukocyte Esterase Negative (Negative) Urine WBC (Auto) 0 (0-5) /hpf Urine RBC (Auto) 0-4 (0-4) /hpf U Hyaline Cast (Auto) 0 (0-5) /lpf U Epithel Cells (Auto) 0-5 (0-5) /lpf Urine Bacteria (Auto) Negative (Negative) Administered Medications Discontinued Medications Sodium Chloride (Nss) 1,000 mls @ 999 mls/hr IV .[id number] ONE Stop: 07/16/23 12:39 Last Admin: 07/16/23 12:00 Dose: 999 mls/hr Documented By: SCOTTY Imaging Data Radiologist's Impression: Head CT 07/16/23 11:39 CT head/brain wo con CLINICAL HISTORY: 82 years-old Male with fall. Acute head trauma status post fall TECHNIQUE: Multiple axial CT images of the head were obtained without contrast. A dose lowering technique was utilized adhering to the principles of ALARA. CT DOSE: 625.8 mGy.cm COMPARISON: 04/29/2020 FINDINGS: No acute intracranial hemorrhage, midline shift, intra-axial mass, hydrocephalus, territorial ischemia or abnormal extra-axial collection. 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 The calvarium is intact. Metallic density hardware within the right temporal bone is again noted which limits the study secondary to the streak artifact. Moderate mucoperiosteal thickening of the paranasal sinuses. Prior bilateral lens repair. The mastoid air cells are clear. IMPRESSION: No acute intracranial abnormality or calvarial fracture. ACT 112: Negative or not required by law. The above report was generated using voice recognition software. It may contain grammatical, syntax or spelling errors. Electronically signed by: Primo Thao M.D. 07/16/2023 12:59 PM Lumbar Spine X-Ray 07/16/23 11:39 XR lumbar spine 2-3V HISTORY: 82 years-old Male lower back pain acute low back pain without reported trauma COMPARISON: 04/27/2023 TECHNIQUE: 3 views of the lumbar spine FINDINGS: Mild lumbar levoscoliosis. Moderate multilevel intervertebral disc space narrowing with mid to lower lumbar spine and severe facet arthrosis. Moderate spondylitic spurring. No acute fracture, subluxation or endplate erosion. 3 mm anterolisthesis L4 on L5, likely degenerative related. No acute fracture or subluxation. Atherosclerosis of the aorta. Moderate fecal retention. IMPRESSION: 1. No acute fracture or subluxation. 2. Degenerative changes as above. ACT 112: Negative or not required by law. The above report was generated using voice recognition software. It may contain grammatical, syntax or spelling errors. Electronically signed by: Primo Thao M.D. 07/16/2023 12:51 PM Chest X-Ray 07/16/23 11:41 XR chest 1V not portable CLINICAL HISTORY: fall COMPARISON STUDY: Chest radiograph January 06, 2022. FINDINGS: Lung volumes are normal. Calcified left lower lung nodule is unchanged. There is no pneumothorax or pleural effusion. There are mildly displaced fractures of the posterolateral left fourth and fifth ribs, new since prior chest radiograph of January 06, 2022 Cardiomegaly is unchanged. Mediastinal contours are normal. There is no evidence for pulmonary edema. IMPRESSION: No pneumothorax. Mildly displaced left fourth and fifth rib fractures. These are likely acute to subacute. ACT 112: Negative or not required by law. Electronically signed by: Montrell Lomeli M.D. 07/16/2023 12:45 PM Discharge Plan Visit Data Chief Complaint: Leg Weakness, Bilateral Stated Complaint: BLE WEAKNESS, FALL FX TIA ED Provider: Scott Richard Discharge Problem: Recurrent falls, A-fib, Expressive aphasia, Bradycardia, Closed rib fracture Patient Disposition: Admitted As Inpatient Discharge Instructions Interventions: ED Discharge Assessment Last Done: 07/16/23 14:29
[2023-07-16 11:48] LABS: iSTAT Creatinine 1.1 mg/dl (0.6-1.3); iSTAT Hemoglobin 12.2 g/dl (14.0-18.0); iSTAT Ionized Calcium 1.21 mmol/l (1.12-1.32)
[2023-07-16 11:53] LABS: Basophils # (auto) 0.03 K/uL (0.00-0.20); Basophils % (auto) 0.8 %; Eosinophils # (auto) 0.15 K/uL (0.00-0.50); Eosinophils % (auto) 3.8 %; Hematocrit (blood only) 37.2 % (42.0-52.0); Immature Granulocytes # (auto) 0.01 K/uL (0.01-0.20); Immature Granulocytes % (auto) 0.3 %; Lymphocytes # (auto) 1.12 K/uL (1.20-3.40); Lymphocytes % (auto) 28.3 %; Mean Corpuscular Hemoglobin 32.5 pg (25.0-34.0); Mean Corpuscular Hgb Conc 34.9 g/dL (32.0-36.0); Mean Platelet Volume 9.7 fL (9.4-12.4); Monocytes # (auto) 0.27 K/uL (0.11-0.59); Monocytes % (auto) 6.8 %; Neutrophils # (auto) 2.38 K/uL (1.40-6.50); Platelet Count 116 K/uL (130-400); RDW Standard Deviation 47.8 fL (36.4-46.3); White Blood Count 3.96 K/ul (4.8-10.8)
[2023-07-16 12:05] LABS: Albumin Globulin Ratio 1.6 (0.9-2); Albumin Level 3.9 gm/dl (3.4-5.0); BUN Creatinine Ratio 15.9 (10-20); Bilirubin,Total 1.5 mg/dl (0.2-1.0); Calcium 9.1 mg/dl (8.6-10.3); Creatinine Clr Calc Pharmacy 57.4 ml/min; Est GFR (Non-African American) 63.9 ml/min; Globulin 2.4 gm/dl (2.5-4.0); Total Protein 6.3 gm/dl (6.0-8.3)
[2023-07-16 12:11] LABS: Troponin I High Sensitivity 8.1 pg/ml (0-20)
--- NOTE | 2023-07-16 12:47 | XRay Report ---
XR chest 1V not portable CLINICAL HISTORY: fall COMPARISON STUDY: Chest radiograph January 06, 2022. FINDINGS: Lung volumes are normal. Calcified left lower lung nodule is unchanged. There is no pneumot horax or pleural effusion. There are mildly displaced fractures of the posterolateral left fourth and fifth ribs, new since prior chest radiograph of January 06, 2022 Cardiomegaly is unchanged. Mediastinal contours are normal. There is no evidence for pulmonary edema. IMPRESSION: No pneumothorax. Mildly displaced left fourth and fifth rib fractures. These are likely a cute to subacute. ACT 112: Negative or not required by law. Electronically signed by: Montrell Lomeli M.D. 07/16/2023 12:45 PM
--- NOTE | 2023-07-16 12:53 | XRay Report ---
XR lumbar spine 2-3V HISTORY: 82 years-old Male lower back pain acute low back pain without reported trauma COMPARISON: 04/27/2023 TECHNIQUE: 3 views of the lumbar spine FINDINGS: Mild lumbar levoscoliosis. Moderate multilevel intervertebral disc space narrowing with mid to lower lumbar spine and severe facet arthrosis. Moderate spondylitic spurring. No acute fracture, subluxatio n or endplate erosion. 3 mm anterolisthesis L4 on L5, likely degenerative related. No acute fracture or subluxation. Atherosclerosis of the aorta. Moderate fecal retention. IMPRESSION: 1. No acute fracture or subluxation. 2. Degenerative changes as above. ACT 112: Negative or not required by law. The above report was generated using voice recognition software. It may contain grammatical, syntax o r spelling errors. Electronically signed by: Primo Thao M.D. 07/16/2023 12:51 PM
--- NOTE | 2023-07-16 13:01 | CT Scan Report ---
CT head/brain wo con CLINICAL HISTORY: 82 years-old Male with fall. Acute head trauma status post fall TECHNIQUE: Multiple axial CT images of the head were obtained without contrast. A dose lowering tech nique was utilized adhering to the principles of ALARA. CT DOSE: 625.8 mGy.cm COMPARISON: 04/29/2020 FINDINGS: No acute intracranial hemorrhage, midline shift, intra-axial mass, hydrocephalus, territorial ischemi a or abnormal extra-axial collection. 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 The calvarium is intact. Metallic density hardware within the right temporal bone is again noted whic h limits the study secondary to the streak artifact. Moderate mucoperiosteal thickening of the parana emer sinuses. Prior bilateral lens repair. The mastoid air cells are clear. IMPRESSION: No acute intracranial abnormality or calvarial fracture. ACT 112: Negative or not required by law. The above report was generated using voice recognition software. It may contain grammatical, syntax o r spelling errors. Electronically signed by: Primo Thao M.D. 07/16/2023 12:59 PM
--- NOTE | 2023-07-16 13:21 | History & Physical Report ---
Date of Service July 16, 2023 Assessment & Plan (1) Aphasia: Plan: Expressive aphasia,? TIA versus perfusion with symptomatic bradycardia At baseline at time of hospitalist assessment. No aphasia or dysarthria is appreciated, no focal strength deficits Patient with an episode of garbled speech and tilting to one side 07/12/2023, and then again with episodes of expressive aphasia Aspirin 81 mg daily and Eliquis continued Statin increased to 40 mg atorvastatin MR brain, MRA head, neck ultrasound pending. CT of the head was normal Follow on telemetry Cardiology consulted for bradycardia with lightheadedness and pauses of up to EKG on admission: A-fib with bradycardic response. On telemetry patient with up to 4-second pauses Patient is asymptomatic and more than 24 hours out from onset of symptoms, will defer permissive hypertension (2) Bradycardia: Plan: Patient is not on negative chronotropic's He states he has had a long history of bradycardia with a heart rate in the 30s and 40s, has not been symptomatic from this His symptoms do not seem to coincide with his heart rate, and he has not felt presyncopal, lightheaded, dizzy or like he was going to pass out at any point Suspected TIA, DDx does include slow perfusion with up to 4-second pauses Cardiology consulted - [employer]rop[employer] manager web application for symptomatic bradycardia (3) Afib: Plan: With bradycardic response Continue Eliquis Patient is not on beta-blockers or non-DHP CCBs (4) HTN (hypertension), benign: Plan: Hypertension Continue losartan, amlodipine (5) Hypercholesterolemia: Plan: Hyperlipidemia Continue atorvastatin, aspirin (6) Lumbar stenosis: Plan: Back pain No acute findings on plain films No neck pain at time of exam Plan Code Status: Conditional code. Did discuss the nature of CPR and that someone is sick enough that if we are to be successful with resuscitation a temporary breathing tube is generally needed at least temporarily to protect airway. He expressed an understanding of this, but notes that he does not want intubation under any circumstances, but still would like chest compressions, medications, and shock if indicated. If the code was prolonged and it looks like he had a high chance of brain damage and he would not want further compressions done and to be made DNR/DNI if he was not resuscitated with an "reasonable short "amount of time. Patient prefers to keep conditional code rather than DNR/DNI or full code History of Present Illness Primary Care Provider: Justa Moore MD Gracia is an 82-year-old male with a past medical history of A-fib on apixaban, hypertension, nonocclusive coronary disease, hyperlipidemia, vertigo who presents for intermittent and recurrent episodes of expressive aphasia in the preceding week. While in the ER he is noted to have multiple episodes of bradycardia down to the 30s with 3 to 4-second pauses. He is not on a beta- robert or negative chronotropic's. Last sunday Jer thinks he had a TIA. He lost his balance and could not talk/express words. [place] suddenly off balance and couldn't standon his own and had 'very bad balance and couldn't seem to find my words.' NO headache, no facial asymmetry, no focal R or L sided symptoms. Lasted about 30 minutes. Today he had a little more achy pain but still within normal for his spinal stenosis, but felt his balance was off and lost his blanace and had to take steps backwards and lean on the wall to prvent himself from falling. No R or L sided sx again. [place] off balance and overall weak. No chest pain, chest pressure, SoB, no sweats. Taeks 75mg losartan total. aPIXABAN, amlodipine. 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 Medical History: Reviewed Medications: Reviewed Surgical History: Reviewed Family history: Reviewed Allergies: Reviewed Social History: No tobacco product use. Does drink alcohol daily, usually 1 drink before dinner/glass of wine with dinner Code Status: Conditional code. Did discuss the nature of CPR and that someone is sick enough that if we are to be successful with resuscitation a temporary breathing tube is generally needed at least temporarily to protect airway. He expressed an understanding of this, but notes that he does not want intubation under any circumstances, but still would like chest compressions, medications, and shock if indicated. If the code was prolonged and it looks like he had a high chance of brain damage and he would not want further compressions done and to be made DNR/DNI if he was not resuscitated with an "reasonable short "amount of time. Patient prefers to keep conditional code rather than DNR/DNI or full code Allergies Allergy/AdvReac Type Severity Reaction Status Date / Time sunflower seed Allergy Mild . Verified 06/13/23 13:07 house dust Allergy Verified 06/13/23 13:07 pramipexole [From Mirapex] Allergy makes Verified 06/13/23 13:07 extremely sleepy ragweed pollen Allergy Verified 06/13/23 13:07 tree and shrub pollen Allergy Verified 06/13/23 13:07 divalproex sodium AdvReac Severe Tachycardia Verified 06/13/23 13:07 Home Medications Medication Instructions Recorded Confirmed Type docusate sodium 100 mg capsule 100 mg PO DAILY 07/21/19 06/13/23 History (Dulcolax Stool Softener (docusate)) meclizine 25 mg tablet 25 mg PO TID PRN dizziness 07/13/20 06/13/23 History albuterol sulfate 90 mcg/actuation See Rx Instructions inhalation 03/03/22 06/13/23 Rx aerosol inhaler .COMPLEX PRN shortness of breath #8.5 grams metronidazole 1 % topical cream 1 applic topical DAILY #60 grams 03/03/22 06/13/23 Rx nitroglycerin 0.4 mg sublingual 0.4 mg sublingual Q5M #25 tabs 07/11/22 06/13/23 Rx tablet losartan 50 mg tablet 50 mg PO QPM #90 tabs 08/04/22 06/13/23 Rx beclomethasone dipropionate 80 2 inh inhalation HS PRN 09/04/22 06/13/23 History mcg/actuation HFA breath activated aerosol fluticasone propionate 50 2 spray intranasal DAILY #16 grams 09/04/22 06/13/23 Rx mcg/actuation nasal spray,suspension apixaban 5 mg tablet 5 mg PO BID #180 tabs 09/05/22 06/13/23 Rx triamcinolone acetonide 0.1 % See Rx Instructions .Route 10/30/22 06/13/23 Rx topical cream .COMPLEX #240 grams folic acid 1 mg tablet 1 mg PO HS #30 tabs 12/01/22 06/13/23 Rx calcium carb-vit D3-minerals 600 1 tab PO BID 12/08/22 06/13/23 History mg calcium-400 unit tablet gabapentin 400 mg capsule See Rx Instructions .Route 12/18/22 06/13/23 Rx .COMPLEX #60 caps amlodipine 5 mg tablet 5 mg PO DAILY #90 tabs 01/23/23 06/13/23 Rx losartan 25 mg tablet 25 mg PO QPM #30 tabs 02/28/23 06/13/23 Rx atorvastatin 20 mg tablet 20 mg PO HS #90 tabs 04/23/23 06/13/23 Rx cyclobenzaprine 10 mg tablet 10 mg PO TID PRN muscle spasm #30 04/26/23 06/13/23 Rx tabs tramadol 50 mg tablet See Rx Instructions PO .COMPLEX 05/24/23 06/13/23 Rx PRN Pain #30 tabs temazepam 15 mg capsule 15 mg PO HS PRN sleep #90 caps 06/06/23 06/13/23 Rx trazodone 50 mg tablet See Rx Instructions .Route 06/11/23 06/13/23 Rx .COMPLEX #60 tabs aspirin 81 mg tablet,delayed 81 mg PO DAILY #30 tabs 07/12/23 07/12/23 Rx release Past Med/Surg History Medical History (Updated 07/16/23 @ 13:39 by Donovan Richards MD) Afib Allergic rhinitis HTN (hypertension), benign Hypercholesterolemia Lumbar facet joint syndrome Lumbar radiculopathy Lumbar stenosis Obstructive sleep apnea Prostate cancer Restless legs syndrome Rosacea Sensorineural hearing loss (SNHL) of right ear with restricted hearing of left ear 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, 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 Sleep apnea Status post placement of bone anchored hearing aid (BAHA) Tinnitus Tremor Vitamin D deficiency Surgical History S/P left knee surgery S/P prostatectomy Family History Family/Other Diabetes Hypertension Brother Diabetes Mother Diverticulitis Father Esophageal cancer Grandfather (Maternal) Stroke Other No family history of adverse response to anesthesia No family history of bleeding disorder Denies family history of Ovarian cancer Prostate cancer Myocardial infarction Breast cancer Colorectal cancer Social History Smoking Status: Never smoker Second Hand Exposure: Yes (parents smoked); Do You Dip or Chew Tobacco: No; Hx Alcohol Use: Yes Alcohol type: beer, wine and other Alcohol Intake Frequency: 4 or More x per/Week Alcohol Intake Frequency Comment: 2 drinks a day- drink before dinner and wine with dinner Hx Substance Use: No Preferred Language: Palestinian Visual Impairment: No Limitations Hearing Ability: Use of Hearing Aid Beliefs That Will Affect Care: None marital status: Current Living Situation: Spouse Current Living Situation Comment: lives with Kaela current occupational status: retired 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 NAD. Cooperative. Speech is fluent and without receptive or expressive aphasia or dysarthria HEENT: Atraumatic, normocephalic. Vision and hearing grossly intact Pulm: Symmetrical chest rise. No increased work of breathing. No respiratory distress. Cardiac: RRR, -mrg. Radial pulses intact and symmetrical. Abdominal: Nontender, nondistended, soft. BS present. Extremities: Moves all extremities equally. Sensation soft touch intact in hands and feet without asymmetry Results & Data Results & Data Vital Signs (Past 12 Hours) Vital Signs Temp Pulse Pulse Resp BP BP Pulse Ox 07/16/23 11:45 44 L 18 151/77 H 96 07/16/23 12:00 39 L 20 148/75 H 98 07/16/23 11:31 42 L 07/16/23 11:30 42 L 20 155/83 H 94 07/16/23 11:21 47 L 18 94 07/16/23 11:20 36.9 C 47 L 20 155/83 H 96 07/16/23 11:18 58 L O2 Del Method 07/16/23 11:45 Room Air 07/16/23 12:00 Room Air 07/16/23 11:31 07/16/23 11:30 Room Air 07/16/23 11:21 Room Air 07/16/23 11:20 Room Air, Nasal Cannula 07/16/23 11:18 PG Care Time/CCT Total # of Minutes Spent Total Time Spent with Patient: Total time spent is greater than 50% in coordination of care (as documented) at patient's floor/unit and/or counseling patient: Coding Level of Care Code 61028 INT INP/OBS CARE MIN Diagnoses Aphasia R47.01 Bradycardia R00.1 Afib I48.91 HTN (hypertension), benign I10 Hypercholesterolemia E78.00 Lumbar stenosis M48.061
[2023-07-16] MEDS ORDERED: PHARMACIST DISCHARGE MED REC CONSULT PRN (13:42)
[2023-07-16 13:45] LABS: Appearance Urine Clear (Clear); Bacteria Urine Automated Negative (Negative); Bilirubin Urine Negative (Negative); Blood Urine 1+ (Negative); Cast Urine Automated 0 /lpf (0-5); Color Urine Yellow; Epithelial Cell Urine Auto 0-5 /lpf (0-5); Glucose Urine UA Negative (Negative); Ketones Urine Negative (Negative); Leukocyte Esterase Urine Negative (Negative); Nitrite Urine Negative (Negative); Protein Urine Negative (Negative); RBC Urine Automated 0-4 /hpf (0-4); Specific Gravity Urine 1.007 (1.000-1.030); Urobilinogen Urine Negative (Negative); WBC Urine Automated 0 /hpf (0-5)
[2023-07-16] MEDS ORDERED: ATROPINE SULFATE 0.1 MG/ML 10ML SYR IV PRN (13:47)
--- NOTE | 2023-07-16 16:15 | Magnetic Resonance Report ---
MR angio head wo con HISTORY: 82 years-old Male TIA eval, aphasia acute stroke like symptoms COMPARISON: Brain MRI of same day, head CT 04/02/2020 TECHNIQUE: MRI of the head was obtained without the use of IV contrast. 3-D coronal and sagittal imag es were obtained and transmitted for review. All measurements were obtained according to NASCET crite sawyer. FINDINGS: No aneurysm, dissection, high-grade stenosis or arterial occlusion identified. 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 IMPRESSION: Unremarkable MRA of the head. ACT 112: Negative or not required by law. The above report was generated using voice recognition software. It may contain grammatical, syntax o r spelling errors. Electronically signed by: Primo Thao M.D. 07/16/2023 4:14 PM
--- NOTE | 2023-07-16 16:32 | Magnetic Resonance Report ---
MR brain wo con CLINICAL HISTORY: TIA eval, aphasia TECHNIQUE: Multiplanar and multisequence MR images of the brain were obtained without intravenous con trast. Comparison: Comparison is made to MRI brain 12/10/2014 FINDINGS: No abnormal restricted diffusion is identified. Foci of T2 and FLAIR hyperintensity are noted in the paraventricular areas consistent with chronic small vessel ischemic disease. Ex vacuo ventriculomegal y and sulcal enlargement is noted compatible with diffuse volume loss. No mass is seen. There is no m ass effect or midline shift. There is no evidence of acute intraparenchymal hemorrhage. No extra axia l fluid collections are seen. The corpus callosum, pituitary gland, and cerebellar tonsils appear patricia ssly unremarkable. Flow voids of the major intracranial arterial vessels are identified. Sinus disease is seen. IMPRESSION: No acute abnormality and in particular no evidence of acute infarct. ACT 112: Negative or not required by law. Electronically signed by: Pravin Hinton M.D. 07/16/2023 4:30 PM
[2023-07-16] MEDS: LOSARTAN POTASSIUM 25 MG TAB PO SCH (22:39)
[2023-07-16] MEDS: APIXABAN 5 MG TABLET PO SCH (22:39)
[2023-07-16] MEDS: GABAPENTIN 400 MG CAP PO SCH (22:39)
[2023-07-17 05:20] LABS: Basophils # (auto) 0.05 K/uL (0.00-0.20); Basophils % (auto) 0.7 %; Eosinophils # (auto) 0.22 K/uL (0.00-0.50); Eosinophils % (auto) 3.2 %; Hematocrit (blood only) 45.8 % (42.0-52.0); Hemoglobin 15.7 g/dl (14.0-18.0); Immature Granulocytes # (auto) 0.02 K/uL (0.01-0.20); Immature Granulocytes % (auto) 0.3 %; Lymphocytes # (auto) 1.85 K/uL (1.20-3.40); Lymphocytes % (auto) 27.3 %; Mean Corpuscular Hemoglobin 32.2 pg (25.0-34.0); Mean Corpuscular Hgb Conc 34.3 g/dL (32.0-36.0); Mean Platelet Volume 9.4 fL (9.4-12.4); Monocytes # (auto) 0.38 K/uL (0.11-0.59); Monocytes % (auto) 5.6 %; Neutrophils # (auto) 4.26 K/uL (1.40-6.50); Neutrophils % (auto) 62.9 %; Platelet Count 153 K/uL (130-400); RDW Coefficient of Variation 14.1 % (11.5-14.5); RDW Standard Deviation 48.6 fL (36.4-46.3); Red Blood Count 4.87 M/uL (4.70-6.10); White Blood Count 6.78 K/ul (4.8-10.8)
[2023-07-17 05:34] LABS: BUN Creatinine Ratio 12.3 (10-20); Calcium 9.7 mg/dl (8.6-10.3); Chol HDL Ratio 2.3 (0-5); Est GFR (African American) 74.9 ml/min; Est GFR (Non-African American) 64.6 ml/min; Magnesium 2.1 mg/dl (1.7-2.4)
--- NOTE | 2023-07-17 07:31 | Electrocardiogram Report ---
Test Reason : Blood Pressure : / mmHG Vent. Rate : 047 BPM Atrial Rate : 000 BPM P-R Int : 000 ms QRS Dur : 092 ms QT Int : 462 ms P-R-T Axes : 000 -08 026 degrees QTc Int : 408 ms Atrial fibrillation with slow ventricular response with a competing junctional pacemaker Low voltage QRS Septal infarct (cited on or before 09-FEB-2023) Abnormal ECG When compared with ECG of 09-FEB-2023 14:22, No significant change was found Confirmed by Juan Diaz ([id number]) on 07/17/2023 7:31:27 AM Referred By: Confirmed By:Juan Diaz
[2023-07-17] MEDS: traMADol HCL 50 MG TABLET PO PRN (07:45)
[2023-07-17] MEDS: ATORVASTATIN 40 MG TAB PO SCH (07:46)
[2023-07-17] MEDS: amLODIPine BESYLATE 5 MG TAB PO SCH (07:46)
[2023-07-17] MEDS: ASPIRIN 81 MG ECTAB PO SCH (07:46)
[2023-07-17] MEDS: APIXABAN 5 MG TABLET PO SCH (07:46)
[2023-07-17] MEDS: GABAPENTIN 400 MG CAP PO SCH ×2 (07:46→21:26)
--- NOTE | 2023-07-17 07:56 | Ultrasound Report ---
ULTRASOUND OF THE CAROTID ARTERIES CLINICAL HISTORY: TIA eval, aphasia TECHNIQUE: Real-time, grayscale, and color Doppler sonography of the carotid arteries is performed. I mages are reviewed in the transverse and longitudinal planes. COMPARISON: None available at the time of this dictation. FINDINGS: The carotid arteries are patent bilaterally and demonstrate antegrade flow. There is moderate atheros clerotic plaque on the right and moderate atherosclerotic plaque on the left. Normal doppler arterial waveforms are seen throughout. Velocity measurements are listed below. Common carotid peak systolic velocity (cm/sec): RIGHT: 77 LEFT: 83 ICA peak systolic velocity (cm/sec): RIGHT: 89 LEFT: 57 ICA/CC peak systolic ratio: RIGHT: 1.16 LEFT: 0.69 Antegrade flow was shown in the vertebral arteries. The external carotid arteries are patent. IMPRESSION: 1. There is no sonographic evidence of hemodynamically significant stenosis in the right or left car otid arterial system. 2. Antegrade flow is shown in the vertebral arteries. Society of Radiologists in Ultrasound consensus guidelines: Normal: ICA PSV is <125 cm/sec and no plaque or intimal thickening is visible sonographically additional criteria include ICA/CCA PSV ratio <2.0 and ICA EDV <40 cm/sec <50% ICA stenosis: ICA PSV is <125 cm/sec and plaque or intimal thickening is visible sonographically additional criteria include ICA/CCA PSV ratio <2.0 and ICA EDV <40 cm/sec 50-69% ICA stenosis: ICA PSV is 125-230 cm/sec and plaque is visible sonographically additional criteria include ICA/CCA PSV ratio of 2.0-4.0 and ICA EDV of 40-100 cm/sec ?70% ICA stenosis but less than near occlusion: ICA PSV is >230 cm/sec and visible plaque and luminal narrowing are seen at murphy-scale and color Dopp ler ultrasound (the higher the Doppler parameters lie above the threshold of 230 cm/sec, the greater the likelihood of severe disease) additional criteria include ICA/CCA PSV ratio >4 and ICA EDV >100 cm/sec ACT 112: Negative or not required by law. Electronically signed by: Pravin Hinton M.D. 07/17/2023 7:53 AM
[2023-07-17] MEDS: SODIUM CHLORIDE 0.9% 1,000 ML IV SCH ×2 (08:11→18:15)
[2023-07-17 08:28] LABS: Estimated Average Glucose 94 mg/dl; Hemoglobin A1C 4.9 % (4.5-5.6)
[2023-07-17 09:26] LABS: Thyroid Stimulating Hormone 5.219 uIu/ml (0.300-4.500)
--- NOTE | 2023-07-17 11:15 | Neurology Consultation ---
Date of Consultation July 17, 2023 Assessment & Plan (1) Stroke-like symptoms: (2) Speech dysfluency: (3) Recurrent falls: (4) Cerebrovascular disease: (5) Subependymoma: Plan 82-year-old male with a history of atrial fibrillation, bradycardia, on Eliquis and aspirin, presenting with recurrent speech disfluency, aphasia?, falls, with concern for recurrent TIA. No evidence of acute or subacute infarct on brain MRI, no significant vascular lesion identified on MRA of the head or carotid ultrasound. 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 He did endorse a history of difficulty with speech fluency that began several years ago as well as difficulty with ambulation and gait. He may have an element of mild subcortical/vascular cognitive impairment. He does not appear to have a significant degenerative dementia at this time. His imaging is not suggestive of normal pressure hydrocephalus. He does not have signs or symptoms suggestive of Parkinson's disease. I do not think the chronic stable subependymoma is responsible for his symptoms. Further, the episodes are not highly suggestive of focal or partial seizures. Would recommend a routine EEG. Would not start an empiric trial of an antiseizure medicine at this time. If patient were to continue to have continued unexplained episodes of speech disfluency, and perhaps other associated neurologic symptoms, would consider ambulatory EEG monitoring. Continue with apixaban and aspirin. Would consider obtaining formal outpatient neuropsychological evaluation. Would not start symptomatic treatment for mild cognitive impairment or dementia at this time. Follow-up with cardiology recommendations. 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 There was no associated hemiparesis, change in vision, vertigo, or lapse in awareness. He does have a past medical history notable for atrial fibrillation, on apixaban and aspirin. He has a known history of bradycardia and coronary artery disease. He has been evaluated by cardiology with tentative plans for a loop recorder or placement of a cardiac pacer. It is notable, however, that these episodes have not correlated with his bradycardia arrhythmia. He did have a brain MRI completed yesterday that was negative for acute or subacute infarct. He does have a chronic stable right lateral ventricle subependymoma that has been seen on several previous studies as well. The study did reveal chronic small vessel ischemic disease and age-related atrophy, I independently reviewed these images. An MRA of the head was unremarkable, as well as a carotid ultrasound. The patient does endorse some longstanding difficulty with speech fluency, for several years as well as occasional difficulty with his balance. He does not have a known history of seizures or recurrent lapse in awareness, although he does recall an episode that may have occurred about 15 years ago with transient lapse in awareness or loss of sense of time. Allergies Allergy/AdvReac Type Severity Reaction Status Date / Time sunflower seed Allergy Mild . Verified 06/13/23 13:07 house dust Allergy Verified 06/13/23 13:07 pramipexole [From Mirapex] Allergy makes Verified 06/13/23 13:07 extremely sleepy ragweed pollen Allergy Verified 06/13/23 13:07 tree and shrub pollen Allergy Verified 06/13/23 13:07 divalproex sodium AdvReac Severe Tachycardia Verified 06/13/23 13:07 Home Medications Medication Instructions Recorded Confirmed Type docusate sodium 100 mg capsule 100 mg PO DAILY 07/21/19 07/16/23 History (Dulcolax Stool Softener (docusate)) meclizine 25 mg tablet 25 mg PO TID PRN dizziness 07/13/20 07/16/23 History albuterol sulfate 90 mcg/actuation See Rx Instructions inhalation 03/03/22 07/16/23 Rx aerosol inhaler .COMPLEX PRN shortness of breath #8.5 grams nitroglycerin 0.4 mg sublingual 0.4 mg sublingual Q5M #25 tabs 07/11/22 07/16/23 Rx tablet losartan 50 mg tablet 50 mg PO QPM #90 tabs 08/04/22 07/16/23 Rx beclomethasone dipropionate 80 2 inh inhalation HS PRN Other 09/04/22 07/16/23 History mcg/actuation HFA breath activated aerosol apixaban 5 mg tablet 5 mg PO BID #180 tabs 09/05/22 07/16/23 Rx folic acid 1 mg tablet 1 mg PO HS #30 tabs 12/01/22 07/16/23 Rx calcium carb-vit D3-minerals 600 1 tab PO BID 12/08/22 07/16/23 History mg calcium-400 unit tablet gabapentin 400 mg capsule See Rx Instructions .Route 12/18/22 07/16/23 Rx .COMPLEX #60 caps amlodipine 5 mg tablet 5 mg PO DAILY #90 tabs 01/23/23 07/16/23 Rx losartan 25 mg tablet 25 mg PO QPM #30 tabs 02/28/23 07/16/23 Rx atorvastatin 20 mg tablet 20 mg PO HS #90 tabs 04/23/23 07/16/23 Rx cyclobenzaprine 10 mg tablet 10 mg PO TID PRN muscle spasm #30 04/26/23 07/16/23 Rx tabs tramadol 50 mg tablet See Rx Instructions PO .COMPLEX 05/24/23 07/16/23 Rx PRN Pain #30 tabs temazepam 15 mg capsule 15 mg PO HS PRN sleep #90 caps 06/06/23 07/16/23 Rx trazodone 50 mg tablet See Rx Instructions .Route 06/11/23 07/16/23 Rx .COMPLEX #60 tabs aspirin 81 mg tablet,delayed 81 mg PO DAILY #30 tabs 07/12/23 07/16/23 Rx release fluticasone propionate 50 2 spray intranasal DAILY PRN Other 07/16/23 07/16/23 History mcg/actuation nasal spray,suspension hydrocodone 5 mg-acetaminophen 325 1 tab PO TID PRN Pain 07/16/23 07/16/23 History mg tablet metronidazole 1 % topical cream 1 applic topical DAILY PRN Other 07/16/23 07/16/23 History triamcinolone acetonide 0.1 % See Rx Instructions .Route 07/16/23 07/16/23 History topical cream .COMPLEX PRN Other Patient History Medical History (Updated 07/17/23 @ 11:31 by Kain Mcpherson MD) Afib Allergic rhinitis HTN (hypertension), benign Hypercholesterolemia Lumbar facet joint syndrome Lumbar radiculopathy Lumbar stenosis Obstructive sleep apnea Prostate cancer Restless legs syndrome Rosacea Sensorineural hearing loss (SNHL) of right ear with restricted hearing of left ear 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, 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 Sleep apnea Status post placement of bone anchored hearing aid (BAHA) Tinnitus Tremor Vitamin D deficiency Surgical History S/P left knee surgery S/P prostatectomy Family History Family/Other Diabetes Hypertension Brother Diabetes Mother Diverticulitis Father Esophageal cancer Grandfather (Maternal) Stroke Other No family history of adverse response to anesthesia No family history of bleeding disorder Denies family history of Ovarian cancer Prostate cancer Myocardial infarction Breast cancer Colorectal cancer Social History Smoking Status: Unknown if ever smoked Second Hand Exposure: Yes (parents smoked); Do You Dip or Chew Tobacco: No; Hx Alcohol Use: Yes Alcohol type: beer, wine and other Alcohol Intake Frequency: 4 or More x per/Week Alcohol Intake Frequency Comment: 2 drinks a day- drink before dinner and wine with dinner Hx Substance Use: No Preferred Language: Panamanian Communication Ability: Effective Visual Impairment: No Limitations Hearing Ability: Use of Hearing Aid Feed Manager Required: No Beliefs That Will Affect Care: None marital status: Current Living Situation: Spouse Current Living Situation Comment: lives with Kaela current occupational status: retired 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- [employer] Feels Safe at Home: Yes Safety Concerns: Feels Safe At This Time Childhood Exposure to Second-Hand Smoke: Yes Diet: regular Dental Care, Regularly: Yes Physical Activity Frequency: Does not Exercise Seatbelt Use: always Sunscreen Use: Yes (SOMETIMES ) Assistive Devices: Hearing Aid - Right Review of Systems Constitutional: no fever and no chills Eyes: no blind spots and no diplopia Ear, Nose, Mouth, Throat: no hearing loss Respiratory: no cough and no dyspnea Cardiovascular: no chest pain, no palpitations and no lightheadedness Gastrointestinal: no nausea and no vomiting Genitourinary: no dysuria or no urinary incontinence Musculoskeletal: no neck pain and no myalgia Integumentary: no rash and no lesions Neurologic: as per Subjective / HPI, + unsteadiness, + abnormal speech and + memory loss; no tremor(s) and no headache(s) Psychiatric: no depression and no anxiety Hematologic / Lymphatic: no easy bleeding and no easy bruising Exam (Neuro) Constitutional: well developed and well nourished; no acute distress Eyes: normal visual jackson by confrontation, PERRL and EOM intact bilaterally Neurologic: Oriented to:: Person, Place and Time Memory: Short Term Intact and Remote Intact Attention: Span Intact and Concentration Intact Language: Naming Objects and Repeating Phrases Speech Fluency: Dysfluency (Subtle disfluency noted with casual speech); negative Dysarthria Speech Aphasia: negative Aphasia Fund of Knowledge: Current Events, Past History and Vocabulary Cranial Nerves: Normal II, III, IV, , V, VII, VIII, IX, X, XI and XII Motor Strength: Normal Lower Extremities and Normal Upper Extremities; negative Pronator Drift or Hemiparesis Motor Tone: Normal Lower Extremities and Normal Upper Extremities Muscle Bulk/Involuntary Movements: No Involuntary Movements; negative Muscle Atrophy Sensation: Light Touch Intact, Pain/Temperature Intact and Proprioception Intact Coordination: Normal; negative Dysdiadochokinesia, Finger-Nose Abnormal or Heel-Shrestha Abnormal Deep Tendon Reflexes: Rt Triceps: 2+, Lt Triceps: 2+, Rt Biceps: 2+, Lt Biceps: 2+, Rt Brachioradialis: 2+, Lt Brachioradialis: 2+, Rt Patellar: 2+, Lt Patellar: 2+, Rt Ankle: 1+ and Lt Ankle: 1+ Special Tests: negative Babinski Present Details: Gait not tested Results & Data Vital Signs (Past 12 Hours) Vital Signs Pulse Pulse Resp BP Pulse Ox O2 Del Method 07/17/23 06:00 47 L 16 142/78 H 97 Room Air 07/16/23 23:35 42 L 07/17/23 02:00 41 L 16 147/73 H 97 Room Air Laboratory Results WBC 6.78, hemoglobin 15.7, hematocrit 45.8, MCV 94.0, platelet count 153, sodium 138, potassium 4.0, BUN 13, creatinine 1.06, glucose 99, hemoglobin A1c 4.9, magnesium 2.1, AST 19, ALT 16, triglycerides 109, cholesterol 105, LDL 38, HDL 45, TSH 5.219, free T41.00, free T33.55 Diagnostic Findings MRI of the brain, MRA of the head, carotid ultrasound are as described in the HPI. I independently reviewed these images. Electrocardiogram reveals atrial fibrillation with slow ventricular response and a competing junctional pacemaker, 47 bpm. Coding Level of Care Code 14397 INT INP/OBS CARE MIN Diagnoses Stroke-like symptoms R29.90 Speech dysfluency R47.89 Recurrent falls R29.6 Cerebrovascular disease I67.9 Subependymoma D43.2 Time Spent (min) 80
--- NOTE | 2023-07-17 12:12 | Cardiology Consultation ---
Date of Consultation July 17, 2023 Assessment & Plan (1) Change in mental status: (2) Atrial fibrillation with slow ventricular response: (3) Non-occlusive coronary artery disease requiring drug therapy: Plan He has episodic symptoms with neurologic overtones which have not been directly shown to correlate with bradycardia or pauses, but cerebral hypoperfusion secondary to bradycardia/pauses has not been excluded as a cause for these symptoms. There are 2 potential approaches, one would be to place a loop recorder to better clarify relationship between symptoms and bradycardia/pauses, the other would be to proceed with pacemaker placement and monitor for neurologic symptoms afterwards. The degree of bradycardia he is exhibiting is such that he likely would require a pacemaker in the near future anyway, and deferring on pacemaker now would increase his chances of adverse outcome should he have recurrent neurologic symptoms and/or prolonged bradycardia or pauses. Therefore, even if it ultimately turns out that his symptoms are not related to bradycardia/pauses, pacemaker placement now would seem the safest option. Patient is in agreement with this plan. Apixaban held at the time of admission yesterday, ideally patient should be off anticoagulation for 48 hours prior to pacer placement. Dr. Thomas is aware, arrangements will be made for patient to have pacemaker tomorrow (Sunday) or the following day. History of Present Illness Reason for Consultation: Bradycardia Requesting Physician: Keith Barrera MD Attending Physician: Keith Barrera MD History of Present Illness 82-year-old man with nonocclusive CAD (2020 cath with 30-40% LAD and circumflex stenoses, normal RCA), permanent atrial fibrillation (apixaban/no rate control) and hypertension, who was admitted 07/16/2023 after second episode of altered mental status over the past week. At baseline, he is chronically bradycardic at rest (30-40 bpm) but his heart rate quickly improves with activity and he has not had any dyspnea exertion, chest discomfort, palpitations, presyncope, or syncope. One week ago he had an episode where he abruptly began leaning to one side and had difficulty with word finding and vocalizing (spoke with a whisper), symptoms lasted 10 minutes and resolve spontaneously. He called me the next morning and I recommended he continue apixaban and increase aspirin 81 mg from every other day to daily. On the day of admission he had an episode of falling out of his chair without loss of consciousness, he again noted difficulty speaking which may have been problems with word finding, this episode he was not speaking with a whisper. His symptoms lasted about half an hour. Evaluation here showed generally unremarkable head CT, brain MRI, head MRA and carotid ultrasound. His heart rate is bradycardic to the 30 bpm range at times and pauses up to 4 seconds, however no symptoms noted during this time. At the time of my evaluation this morning, he was comfortable with no cardiac or neurologic symptoms. Allergies Allergy/AdvReac Type Severity Reaction Status Date / Time sunflower seed Allergy Mild . Verified 06/13/23 13:07 house dust Allergy Verified 06/13/23 13:07 pramipexole [From Mirapex] Allergy makes Verified 06/13/23 13:07 extremely sleepy ragweed pollen Allergy Verified 06/13/23 13:07 tree and shrub pollen Allergy Verified 06/13/23 13:07 divalproex sodium AdvReac Severe Tachycardia Verified 06/13/23 13:07 Home Medications Medication Instructions Recorded Confirmed Type docusate sodium 100 mg capsule 100 mg PO DAILY 07/21/19 07/16/23 History (Dulcolax Stool Softener (docusate)) meclizine 25 mg tablet 25 mg PO TID PRN dizziness 07/13/20 07/16/23 History albuterol sulfate 90 mcg/actuation See Rx Instructions inhalation 03/03/22 07/16/23 Rx aerosol inhaler .COMPLEX PRN shortness of breath #8.5 grams nitroglycerin 0.4 mg sublingual 0.4 mg sublingual Q5M #25 tabs 07/11/22 07/16/23 Rx tablet losartan 50 mg tablet 50 mg PO QPM #90 tabs 08/04/22 07/16/23 Rx beclomethasone dipropionate 80 2 inh inhalation HS PRN Other 09/04/22 07/16/23 History mcg/actuation HFA breath activated aerosol apixaban 5 mg tablet 5 mg PO BID #180 tabs 09/05/22 07/16/23 Rx folic acid 1 mg tablet 1 mg PO HS #30 tabs 12/01/22 07/16/23 Rx calcium carb-vit D3-minerals 600 1 tab PO BID 12/08/22 07/16/23 History mg calcium-400 unit tablet gabapentin 400 mg capsule See Rx Instructions .Route 12/18/22 07/16/23 Rx .COMPLEX #60 caps amlodipine 5 mg tablet 5 mg PO DAILY #90 tabs 01/23/23 07/16/23 Rx losartan 25 mg tablet 25 mg PO QPM #30 tabs 02/28/23 07/16/23 Rx atorvastatin 20 mg tablet 20 mg PO HS #90 tabs 04/23/23 07/16/23 Rx cyclobenzaprine 10 mg tablet 10 mg PO TID PRN muscle spasm #30 04/26/23 07/16/23 Rx tabs tramadol 50 mg tablet See Rx Instructions PO .COMPLEX 05/24/23 07/16/23 Rx PRN Pain #30 tabs temazepam 15 mg capsule 15 mg PO HS PRN sleep #90 caps 06/06/23 07/16/23 Rx trazodone 50 mg tablet See Rx Instructions .Route 06/11/23 07/16/23 Rx .COMPLEX #60 tabs aspirin 81 mg tablet,delayed 81 mg PO DAILY #30 tabs 07/12/23 07/16/23 Rx release fluticasone propionate 50 2 spray intranasal DAILY PRN Other 07/16/23 07/16/23 History mcg/actuation nasal spray,suspension hydrocodone 5 mg-acetaminophen 325 1 tab PO TID PRN Pain 07/16/23 07/16/23 History mg tablet metronidazole 1 % topical cream 1 applic topical DAILY PRN Other 07/16/23 07/16/23 History triamcinolone acetonide 0.1 % See Rx Instructions .Route 07/16/23 07/16/23 History topical cream .COMPLEX PRN Other Patient History Medical History (Updated 07/17/23 @ 12:38 by Aronld Barrera MD) Allergic rhinitis HTN (hypertension), benign Hypercholesterolemia Lumbar facet joint syndrome Lumbar radiculopathy Lumbar stenosis Obstructive sleep apnea Prostate cancer Restless legs syndrome Rosacea Sensorineural hearing loss (SNHL) of right ear with restricted hearing of left ear 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, 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 Sleep apnea Status post placement of bone anchored hearing aid (BAHA) Tinnitus Tremor Vitamin D deficiency Surgical History S/P left knee surgery S/P prostatectomy Family History Family/Other Diabetes Hypertension unknown who Brother Diabetes Mother Diverticulitis Father Esophageal cancer Grandfather (Maternal) Stroke Other No family history of adverse response to anesthesia No family history of bleeding disorder Denies family history of Ovarian cancer Prostate cancer Myocardial infarction Breast cancer Colorectal cancer Social History Smoking Status: Unknown if ever smoked Second Hand Exposure: Yes (parents smoked); Do You Dip or Chew Tobacco: No; Hx Alcohol Use: Yes Alcohol type: beer, wine and other Alcohol Intake Frequency: 4 or More x per/Week Alcohol Intake Frequency Comment: 2 drinks a day- drink before dinner and wine with dinner Hx Substance Use: No Preferred Language: Korean Communication Ability: Effective Visual Impairment: No Limitations Hearing Ability: Use of Hearing Aid Coding Compliance Specialist Required: No Beliefs That Will Affect Care: None marital status: Current Living Situation: Spouse Current Living Situation Comment: lives with Kaela current occupational status: retired 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 BP mildly hypertensive (142/78 mmHg). Pulse 47 bpm and irregular. Skin: no ecchymoses or generalized lesions. HEENT: unremarkable. Neck: JVP at the clavicle at 90 degrees, no carotid bruits. Lungs: clear. Cardiac: irregular rhythm, normal S1-2, 2/6 apical systolic murmur which is nonradiating, no diastolic murmur or gallop. Abdomen: benign. Extremities: no edema, pulses intact. Neurologic: normal affect and conversation, nonfocal. Results & Data Vital Signs (Past 12 Hours) Vital Signs Pulse Resp BP Pulse Ox O2 Del Method 07/17/23 06:00 47 L 16 142/78 H 97 Room Air 07/17/23 02:00 41 L 16 147/73 H 97 Room Air Laboratory Results Troponin 8.1. Normal CBC. Normal electrolytes, BUN 13, creatinine 1.06. Diagnostic Findings ECG on admission showed atrial fibrillation with ventricular rate of 47 bpm, possible old septal infarct. Compared with 02/02/2023 ECG, no significant change. Chest x-ray with subacute nondisplaced left fourth and fifth rib fractures, otherwise unremarkable. Head CT, head MRA, brain MRI, and carotid ultrasound unremarkable. Echocardiogram 2019 showed EF 55 to 60% with normal LV function and wall motion, mild to moderate MR, mild TR with moderate pulmonary hypertension. PG Care Time/CCT Total # of Minutes Spent Total Time Spent with Patient: Total time spent is greater than 50% in coordination of care (as documented) at patient's floor/unit and/or counseling patient: Coding Level of Care Code 56917 INT INP/OBS CARE 3/75MIN Diagnoses Change in mental status R41.82 Atrial fibrillation with slow ventricular response I48.91 Non-occlusive coronary artery disease requiring drug therapy I25.10
--- NOTE | 2023-07-17 17:16 | XCELERA ---
[id number]
[2023-07-17] MEDS: TEMAZEPAM 15 MG CAPSULE PO PRN (21:25)
[2023-07-17] MEDS: LOSARTAN POTASSIUM 25 MG TAB PO SCH (21:26)
[2023-07-18 06:20] LABS: Basophils # (auto) 0.03 K/uL (0.00-0.20); Basophils % (auto) 0.5 %; Eosinophils # (auto) 0.13 K/uL (0.00-0.50); Eosinophils % (auto) 2.1 %; Hematocrit (blood only) 38.4 % (42.0-52.0); Hemoglobin 13.5 g/dl (14.0-18.0); Immature Granulocytes # (auto) 0.01 K/uL (0.01-0.20); Immature Granulocytes % (auto) 0.2 %; Lymphocytes # (auto) 1.84 K/uL (1.20-3.40); Lymphocytes % (auto) 29.3 %; Mean Corpuscular Hemoglobin 32.6 pg (25.0-34.0); Mean Corpuscular Hgb Conc 35.2 g/dL (32.0-36.0); Mean Corpuscular Volume 92.8 fL (80.0-100.0); Mean Platelet Volume 9.7 fL (9.4-12.4); Monocytes % (auto) 6.4 %; Neutrophils # (auto) 3.87 K/uL (1.40-6.50); Neutrophils % (auto) 61.5 %; Platelet Count 139 K/uL (130-400); RDW Coefficient of Variation 13.6 % (11.5-14.5); RDW Standard Deviation 46.7 fL (36.4-46.3); Red Blood Count 4.14 M/uL (4.70-6.10); White Blood Count 6.28 K/ul (4.8-10.8)
[2023-07-18 06:30] LABS: BUN Creatinine Ratio 12.7 (10-20); Calcium 8.7 mg/dl (8.6-10.3); Creatinine Clr Calc Pharmacy 55.8 ml/min; Est GFR (African American) 71.6 ml/min; Est GFR (Non-African American) 61.8 ml/min; Potassium 3.8 mmol/L (3.5-5.1)
[2023-07-18] MEDS: SODIUM CHLORIDE 0.9% 1,000 ML IV SCH (06:40)
[2023-07-18] MEDS ORDERED: LIDOCAINE 1% LOCAL 20 ML VIAL ONE (07:00)
[2023-07-18] MEDS ORDERED: WATER, STERILE FOR INJ 10 ML VIAL ONE (07:01)
[2023-07-18] MEDS ORDERED: VANCOMYCIN HCL 1000MG/20ML VIAL ONE (07:01)
[2023-07-18] MEDS: amLODIPine BESYLATE 5 MG TAB PO SCH (07:49)
[2023-07-18] MEDS: ATORVASTATIN 40 MG TAB PO SCH (07:49)
[2023-07-18] MEDS: GABAPENTIN 400 MG CAP PO SCH ×2 (07:50→20:55)
[2023-07-18] MEDS: ASPIRIN 81 MG ECTAB PO SCH (07:50)
--- NOTE | 2023-07-18 09:54 | Cardiology Progress Note ---
Date of Service July 18, 2023 Assessment & Plan (1) Atrial fibrillation with slow ventricular response: (2) Non-occlusive coronary artery disease requiring drug therapy: Plan 1. TICKET MARKER symptoms: The cause of his symptoms is unclear, but I believe it could well be bradycardia. I do not think there is any way to test for that other than with a loop recorder which might be misleading since he often has heart rates in the 30s, in fact most of the time, which would make it difficult to determine whether this was causing symptoms or not unless his heart rate got very slow. Loop recorder therefore may not be very helpful. 2. Atrial fibrillation with slow ventricular response: He has a quite slow heart rate, very often in the 30s, which will likely interfere with activities and could be causing his TICKET MARKER symptoms. I think we should proceed with pacemaker implantation at this point. I discussed the indications, procedure, risks and alternatives with him and his who was present at his bedside and he understands and agrees to proceed. Consent obtained. I also discussed sedation with him and he agrees. Consent obtained. 3. Coronary disease: He has coronary artery disease but does not have symptoms of angina, however the slow heart rate and lack of ability to use beta-blockade may be detrimental in the long run. With the pacemaker he will likely do better with his coronary disease. Admission and Anticipated Discharge Date Admission Date: July 17, 2023 Subjective He is feeling well today, no lightheadedness, dizziness or palpitations today. He has not been very active. Physical Exam Physical Exam: Constitutional: Alert, cooperative and in no distress. HEENT: Unremarkable Neck: No jugular venous distention, carotid pulses are irregular but otherwise normal and equal bilaterally without bruits. Pulmonary: Clear to auscultation bilaterally. Cardiac: Irregular rhythm with no murmur, gallop or rub. Abdomen: Soft, nontender with normal bowel sounds. Extremities: No edema. Distal pulses intact. Neurologic: No focal findings. Gait is steady. Skin: No rash, ecchymoses or petechiae. Results & Data Vital Signs (Past 12 Hours) Vital Signs Temp Pulse Pulse Resp BP Pulse Ox O2 Del Method 07/18/23 08:27 37.0 C 40 L 18 150/95 H 98 Room Air 07/18/23 02:47 36.8 C 42 L 18 145/75 H 97 Room Air 07/17/23 21:58 51 L 07/17/23 22:40 36.7 C 42 L 18 159/75 H 97 Room Air Laboratory Results CBC 07/18/23 Range/Units 05:34 WBC 6.28 (4.8-10.8) K/ul RBC 4.14 L (4.70-6.10) M/uL Hgb 13.5 L (14.0-18.0) g/dl Hct 38.4 L (42.0-52.0) % Plt Count 139 (130-400) K/uL Neut # (Auto) 3.87 (1.40-6.50) K/uL Lymph # (Auto) 1.84 (1.20-3.40) K/uL [place] # (Auto) 0.40 (0.11-0.59) K/uL Eos # (Auto) 0.13 (0.00-0.50) K/uL Baso # (Auto) 0.03 (0.00-0.20) K/uL Comprehensive Metabolic Panel 07/18/23 Range/Units 05:34 Sodium 138 (136-145) mmol/L Potassium 3.8 (3.5-5.1) mmol/L Chloride 108 H (98-107) mmol/L Carbon Dioxide 26 (21-32) mmol/L BUN 14 (6-23) mg/dl Creatinine 1.10 (0.6-1.4) mg/dl Glucose 84 (70-99(Fasting)) mg/dl Calcium 8.7 (8.6-10.3) mg/dl Intake and Output 07/17/23 07/18/23 07/18/23 22:59 06:59 14:59 Intake Total 1005.333 / 2098.666 1093.333 / 2098.666 Output Total 500 / 1325 675 / 1325 225 / 225 Balance 505.333 / 773.666 418.333 / 773.666 -225 / -225 Intake: IV 805.333 / 1798.666 993.333 / 1798.666 Sodium Chloride 0.9% 1,000 ml @ 805.333 / 1798.666 993.333 / 1798.666 80 mls/hr IV .[id number] [facility] Rx#: [id number] Oral 200 / 300 100 / 300 Output: Urine 500 / 1325 675 / 1325 225 / 225 Other: Other Intake Source NPO Diagnostic Findings Telemetry: Atrial fibrillation, heart rate generally slow, often in the 30s. PG Care Time/CCT Total # of Minutes Spent Total Time Spent with Patient: Total time spent is greater than 50% in coordination of care (as documented) at patient's floor/unit and/or counseling patient: Coding Level of Care Code 09108 SUB INP/OBS CARE 3/50MIN Diagnoses Atrial fibrillation with slow ventricular response I48.91 Non-occlusive coronary artery disease requiring drug therapy I25.10
--- NOTE | 2023-07-18 10:06 | Electroencephalogram ---
EEG Procedure Note Date of Service July 18, 2023 Start / End Times Start Time: 8:48 AM End Time: 9:08 AM Referring Physician Vida History recurrent aphasia, rule out seizures Home Medication List Medication Instructions Recorded Confirmed Type docusate sodium 100 mg capsule 100 mg PO DAILY 07/21/19 07/16/23 History (Dulcolax Stool Softener (docusate)) meclizine 25 mg tablet 25 mg PO TID PRN dizziness 07/13/20 07/16/23 History albuterol sulfate 90 mcg/actuation See Rx Instructions inhalation 03/03/22 07/16/23 Rx aerosol inhaler .COMPLEX PRN shortness of breath #8.5 grams nitroglycerin 0.4 mg sublingual 0.4 mg sublingual Q5M #25 tabs 07/11/22 07/16/23 Rx tablet losartan 50 mg tablet 50 mg PO QPM #90 tabs 08/04/22 07/16/23 Rx beclomethasone dipropionate 80 2 inh inhalation HS PRN Other 09/04/22 07/16/23 History mcg/actuation HFA breath activated aerosol apixaban 5 mg tablet 5 mg PO BID #180 tabs 09/05/22 07/16/23 Rx folic acid 1 mg tablet 1 mg PO HS #30 tabs 12/01/22 07/16/23 Rx calcium carb-vit D3-minerals 600 1 tab PO BID 12/08/22 07/16/23 History mg calcium-400 unit tablet gabapentin 400 mg capsule See Rx Instructions .Route 12/18/22 07/16/23 Rx .COMPLEX #60 caps amlodipine 5 mg tablet 5 mg PO DAILY #90 tabs 01/23/23 07/16/23 Rx losartan 25 mg tablet 25 mg PO QPM #30 tabs 02/28/23 07/16/23 Rx atorvastatin 20 mg tablet 20 mg PO HS #90 tabs 04/23/23 07/16/23 Rx cyclobenzaprine 10 mg tablet 10 mg PO TID PRN muscle spasm #30 04/26/23 07/16/23 Rx tabs tramadol 50 mg tablet See Rx Instructions PO .COMPLEX 05/24/23 07/16/23 Rx PRN Pain #30 tabs temazepam 15 mg capsule 15 mg PO HS PRN sleep #90 caps 06/06/23 07/16/23 Rx trazodone 50 mg tablet See Rx Instructions .Route 06/11/23 07/16/23 Rx .COMPLEX #60 tabs aspirin 81 mg tablet,delayed 81 mg PO DAILY #30 tabs 07/12/23 07/16/23 Rx release fluticasone propionate 50 2 spray intranasal DAILY PRN Other 07/16/23 07/16/23 History mcg/actuation nasal spray,suspension hydrocodone 5 mg-acetaminophen 325 1 tab PO TID PRN Pain 07/16/23 07/16/23 History mg tablet metronidazole 1 % topical cream 1 applic topical DAILY PRN Other 07/16/23 07/16/23 History triamcinolone acetonide 0.1 % See Rx Instructions .Route 07/16/23 07/16/23 History topical cream .COMPLEX PRN Other Inpatient Medication List Amlodipine Besylate (Amlodipine Besylate 5 Mg Tab) 5 mg PO DAILY [facility] Stop: 08/16/23 08:59 Last Admin: 07/18/23 07:49 Dose: 5 mg Documented By: [facility] – [place] Admin: 07/17/23 07:46 Dose: 5 mg Documented By: JAYLON Aspirin (Aspirin 81 Mg Ectab) 81 mg PO DAILY [facility] Stop: 08/16/23 08:59 Last Admin: 07/18/23 07:50 Dose: 81 mg Documented By: [facility] – [place] Admin: 07/17/23 07:46 Dose: 81 mg Documented By: JAYLON Atorvastatin Calcium (Atorvastatin 40 Mg Tab) 40 mg PO QAM [facility] Stop: 08/16/23 08:59 Last Admin: 07/18/23 07:49 Dose: 40 mg Documented By: [facility] – [place] Admin: 07/17/23 07:46 Dose: 40 mg Documented By: JAYLON Atropine Sulfate (Atropine Sulfate 0.1 Mg/Ml 10ml Syr) 0.5 mg IV ONE PRN PRN Reason: symptomatic bradycardia Stop: 08/15/23 13:46 Last Admin: 07/16/23 17:38 Dose: 0.5 mg Documented By: SCOTTY Gabapentin (Gabapentin 400 Mg Cap) 400 mg PO BID [facility] Stop: 08/15/23 20:59 Last Admin: 07/18/23 07:50 Dose: 400 mg Documented By: Admin: 07/17/23 21:26 Dose: 400 mg Documented By: Admin: 07/17/23 07:46 Dose: 400 mg Documented By: Admin: 07/16/23 22:39 Dose: 400 mg Documented By: LILLIAM Sodium Chloride (Nss) 1,000 mls @ 80 mls/hr IV .[id number] [facility] Stop: 08/16/23 08:14 Last Admin: 07/18/23 06:40 Dose: 80 mls/hr Documented By: Infusion: 07/18/23 06:40 Dose: 80 mls/hr Documented By: Admin: 07/17/23 18:15 Dose: 80 mls/hr Documented By: Infusion: 07/17/23 18:15 Dose: 80 mls/hr Documented By: Admin: 07/17/23 08:11 Dose: 80 mls/hr Documented By: JAYLON Losartan Potassium (Losartan Potassium 25 Mg Tab) 75 mg PO QPM [facility] Stop: 08/15/23 20:59 Last Admin: 07/17/23 21:26 Dose: 75 mg Documented By: Admin: 07/16/23 22:39 Dose: 75 mg Documented By: LILLIAM Temazepam (Temazepam 15 Mg Capsule) 15 mg PO HS PRN PRN Reason: sleep Stop: 08/15/23 14:29 Last Admin: 07/17/23 21:25 Dose: 15 mg Documented By: CONOR Tramadol HCl (Tramadol Hcl 50 Mg Tablet) 50 mg PO Q6H PRN PRN Reason: Pain Stop: 08/15/23 14:29 Last Admin: 07/17/23 07:45 Dose: 50 mg Documented By: JAYLON Discontinued Medications Apixaban (Apixaban 5 Mg Tablet) 5 mg PO BID [facility] Stop: 08/15/23 20:59 Last Admin: 07/17/23 07:46 Dose: 5 mg Documented By: Admin: 07/16/23 22:39 Dose: 5 mg Documented By: LILLIAM Sodium Chloride (Nss) 1,000 mls @ 999 mls/hr IV .Q1H1M ONE Stop: 07/16/23 12:39 Last Infusion: 07/16/23 14:00 Dose: 0 mls/hr Documented By: Admin: 07/16/23 12:00 Dose: 999 mls/hr Documented By: SCOTTY Description This is a 21 electrode EEG with a single channel dedicated to limited EKG. The electrodes were placed in accordance with the International 10-20 system. There is a posterior dominant rhythm of 10 Hz which is symmetrically distributed and attenuates with eye opening. There is a normal anterior to posterior organization. Photic stimulation is unremarkable. Hyperventilation is not performed. There is a symmetric frontal beta rhythm. There is some attenuation of the background rhythm in the latter part of the study with the emergence of generalized theta activity. There is no focal slowing. There are no ep ileptiform abnormalities. Interpretation Normal-appearing awake/drowsy EEG. No epileptiform abnormalities. [facility] EEG Procedure Codes Indication for Procedure (1) Seizure-like activity: Neurology Neurology: 70104 EEG include record awake & drowsy
--- NOTE | 2023-07-18 10:17 | Pre Anesthesia Assessment ---
Date of Service July 18, 2023 Pre Sedation Assessment Vital Signs Temp Pulse Pulse Resp BP BP Pulse Ox 07/18/23 08:27 37.0 C 40 L 18 150/95 H 98 07/18/23 02:47 36.8 C 42 L 18 145/75 H 97 07/17/23 21:58 51 L 07/17/23 22:40 36.7 C 42 L 18 159/75 H 97 07/17/23 20:07 36.7 C 46 L 18 154/75 H 98 07/17/23 17:35 36.4 C L 50 L 18 168/80 H 98 07/17/23 15:00 15 135/80 93 07/17/23 13:00 47 L 12 97 07/17/23 12:36 40 L 14 07/17/23 12:36 133/68 07/17/23 12:00 51 L 18 07/17/23 11:02 53 L 13 07/17/23 10:54 43 L 17 07/17/23 10:54 153/82 H 07/17/23 10:31 48 L 13 96 07/17/23 10:31 137/74 O2 Del Method 07/18/23 08:27 Room Air 07/18/23 02:47 Room Air 07/17/23 21:58 07/17/23 22:40 Room Air 07/17/23 20:07 Room Air 07/17/23 17:35 Room Air 07/17/23 15:00 07/17/23 13:00 07/17/23 12:36 07/17/23 12:36 07/17/23 12:00 07/17/23 11:02 07/17/23 10:54 07/17/23 10:54 07/17/23 10:31 07/17/23 10:31 Cardiovascular + bradycardic and + irregularly irregular Respiratory normal respiratory effort, lungs clear to auscultation Pre-Sedation Airway Assessment Smoking Status: Unknown if ever smoked Hx Sleep Apnea: No Hx Difficult Intubation: No Mallampati Class: II ASA: ASA3 NPO Status Date of Last Intake of Fluids: 07/17/23 Date of Last Intake of Solid Food: 07/17/23 Notes The planned sedation has been discussed with the patient. Informed Consent was obtained. I have identified the patient, determined the appropriateness of sedation and have assessed the patient immediately prior to the procedure. All medicine(s) and interventions are by my order.
[2023-07-18] MEDS ORDERED: MIDAZOLAM HCL 1 MG/ML 2ML VIAL ONE ×2 (10:39→11:31)
[2023-07-18] MEDS ORDERED: fentaNYL citrate PF 100 MCG/2 ML VIAL ONE (10:40)
[2023-07-18] MEDS ORDERED: ceFAZolin 330 MG/ML 1 GM VIAL ONE (10:43)
--- NOTE | 2023-07-18 11:54 | Electrophysiology Report ---
Date of Service July 18, 2023 Electrophysiology Procedure Electrophysiology Procedure Report Preoperative diagnosis: Atrial fibrillation with slow ventricular response Postoperative diagnosis: Same Procedure: Single chamber pacemaker implantation Surgeon: Juan Diaz MD Estimated blood loss: 30 cc Complications: None Disposition: Station Helper recovery Procedure details: After obtaining informed consent for the procedure, the patient was brought to the laboratory and prepped and draped in the standard sterile manner. The left prepectoral region was anesthetized with 1% lidocaine local anesthetic and left axillary venipuncture was performed by percutaneous technique and a guidewire placed through the left subclavian vein into the superior vena cava. The area was further infiltrated with 1% lidocaine local anesthetic and a 5 cm incision was made parallel to the left clavicle and 2 cm below it and carried down to the anterior pectoralis fascia. A pacemaker pocket was formed by blunt dissection anterior to the pectoralis fascia and a Vancomycin soaked sponge was placed in the pocket. A 7 Khmer Medtronic lead introducer was placed over the guidewire into the left subclavian vein, the dilator and guidewire were removed and a C315 sheath was advanced into the right ventricle over a guidewire. The guidewire and the dilator were removed and a bipolar active fixation Select Secure steroid tipped ventricular lead was advanced through the introducer into right ventricle. The ventricular lead was advanced through the sheath into a mid to distal septal location. The screw was extended fixing the lead in position. Penetration into the septum was confirmed by electrocardiographic morphology. Pacing and sensing thresholds were evaluated in bipolar configuration and are recorded on the implant data sheet. The sheath system was stripped from the ventricular lead and the 7 Khmer sheath was also stripped from the lead. Once the lead was in position it was attached to the anterior pectoralis fascia using 2 sutures of 2-0 silk around the lead collar. The Vancomycin-soaked sponge was removed from the pocket, hemostasis was obtained, the pacemaker was attached to the lead and placed in the pocket with the lead coiled beneath it. The incision was closed with a running double subcutaneous closure of 3-0 Vicryl absorbable suture, followed by running subcuticular skin closure of 4-0 Vicryl absorbable suture. Bacitracin ointment was placed on the incision and a dressing applied. [facility] Electrophysiology codes Indication for Procedure (1) Atrial fibrillation with slow ventricular response: Pacing Procedure 1: Pacin Insert/Replace Pacer V PG Moderate Sedation Codes Moderate Sedation Codes Procedure 1: Sedation/Anesthesia: 40599 Mod Sedation by the same physician;Init15 Min Child Age 5 & Up Procedure 2: Sedation/Anesthesia: 19840 Mod Sedation by the same physician; Ea [id number] Minutes
[2023-07-18] MEDS ORDERED: KETOROLAC TROMETHAMINE 10 MG TABLET PO PRN (11:56)
[2023-07-18] MEDS ORDERED: ACETAMINOPHEN 325 MG TAB PO PRN (11:56)
[2023-07-18] MEDS: METOPROLOL SUCC 25MG EXT REL TAB PO SCH (13:13)
--- NOTE | 2023-07-18 16:16 | Hospitalist Progress Note ---
Date of Service July 18, 2023 Assessment & Plan (1) Atrial fibrillation with slow ventricular response: Plan: The patient received a permanent cardiac pacemaker implant today, July 18. Appreciate cardiology consultation and recommendations. Previous brain MRI scan was negative for CVA. EEG is negative for epileptiform activity. The acute metabolic encephalopathy present on admission has resolved. (2) Change in mental status: Plan: Acute metabolic encephalopathy present on admission has resolved (3) HTN (hypertension), benign: Plan: Stable. Continue current medical Plan Anticipate discharge to home tomorrow, July 19 Admission and Anticipated Discharge Date Admission Date: July 17, 2023 Subjective Alert and oriented. The patient was seen after permanent cardiac pacemaker insertion today, July 18. He is doing well. Hopefully he can go home tomorrow, July 19 Review of Systems Review of Systems: Constitutional-no fever or chills ENT-no blurred vision, no double vision, no epistaxis, no sore throat Respiratory-no cough, no wheezing, no shortness of breath Cardiac-no palpitations, no chest pain, no syncope GI-no nausea, vomiting, diarrhea, melena, hematochezia -no urinary retention, no urinary incontinence, no dysuria, no hematuria Musculoskeletal-no joint pain, no muscle tenderness Skin-no bruising, no rashes, no pruritus Neuro-no isolated weakness, no paresthesia, no weakness Psych-no depression, no anxiety Physical Exam Physical Exam: General-alert and oriented x3, no fevers, no chills HEENT-head atraumatic and normocephalic, pupils equal and reactive to light, extraocular muscles intact Neck-no lymphadenopathy or thyromegaly, trachea midline Chest-clear to auscultation percussion. No rales, wheezing or rhonchi. Pacer insertion site left upper anterior chest wall is intact with no swelling or bleeding Cardiac-occasionally paced rhythm, occasionally irregular rhythm consistent with atrial fibrillation. Normal S1 and S2 Abdomen-normal bowel sounds, nontender, no hepatosplenomegaly Extremities-no cyanosis, clubbing, or edema Neuro-cranial nerves II through XII intact, motor and sensory function within normal limits, strength symmetrical, no focal deficits Psych-normal affect, normal mood Results & Data Results & Data Vital Signs (Past 12 Hours) Vital Signs Temp Pulse Pulse Resp BP Pulse Ox O2 Del Method 07/18/23 14:34 43 L 07/18/23 14:00 36.6 C 61 18 132/71 95 Room Air 07/18/23 13:30 36.8 C 61 18 135/78 97 Room Air 07/18/23 13:11 36.6 C 62 18 163/88 H 97 Room Air 07/18/23 12:41 36.7 C 60 18 162/89 H 98 Room Air 07/18/23 12:26 36.6 C 60 18 162/94 H 96 Room Air 07/18/23 12:13 64 5 L 07/18/23 09:00 37 L 0 L 07/18/23 08:00 63 13 07/18/23 07:00 46 L 0 L 07/18/23 06:00 39 L 0 L 07/18/23 05:00 45 L 1 L 07/18/23 12:11 36.8 C 60 18 169/93 H 96 Room Air 07/18/23 11:56 36.8 C 60 18 161/100 H 96 Room Air 07/18/23 11:55 68 18 153/84 H 98 Room Air 07/18/23 10:15 58 L 16 158/94 H 99 Room Air 07/18/23 08:27 37.0 C 40 L 18 150/95 H 98 Room Air Laboratory Results 07/18/23 05:34 07/18/23 05:34 PG Care Time/CCT Total # of Minutes Spent Total Time Spent with Patient: Total time spent is greater than 50% in coordination of care (as documented) at patient's floor/unit and/or counseling patient: Coding Level of Care Code 55124 SUB INP/OBS CARE 3/50MIN Diagnoses Atrial fibrillation with slow ventricular response I48.91 Change in mental status R41.82 HTN (hypertension), benign I10
[2023-07-18] MEDS: traMADol HCL 50 MG TABLET PO PRN (17:58)
[2023-07-18] MEDS: LOSARTAN POTASSIUM 25 MG TAB PO SCH (20:56)
[2023-07-18] MEDS: TEMAZEPAM 15 MG CAPSULE PO PRN (22:13)
[2023-07-19] MEDS: traMADol HCL 50 MG TABLET PO PRN (04:24)
[2023-07-19 06:32] LABS: Basophils # (auto) 0.03 K/uL (0.00-0.20); Basophils % (auto) 0.4 %; Eosinophils # (auto) 0.18 K/uL (0.00-0.50); Eosinophils % (auto) 2.7 %; Hematocrit (blood only) 38.6 % (42.0-52.0); Hemoglobin 13.8 g/dl (14.0-18.0); Immature Granulocytes # (auto) 0.01 K/uL (0.01-0.20); Immature Granulocytes % (auto) 0.1 %; Lymphocytes # (auto) 1.53 K/uL (1.20-3.40); Lymphocytes % (auto) 22.9 %; Mean Corpuscular Hemoglobin 32.5 pg (25.0-34.0); Mean Corpuscular Hgb Conc 35.8 g/dL (32.0-36.0); Mean Platelet Volume 9.7 fL (9.4-12.4); Monocytes # (auto) 0.49 K/uL (0.11-0.59); Monocytes % (auto) 7.3 %; Neutrophils # (auto) 4.43 K/uL (1.40-6.50); Neutrophils % (auto) 66.6 %; Platelet Count 141 K/uL (130-400); RDW Coefficient of Variation 13.8 % (11.5-14.5); RDW Standard Deviation 46.5 fL (36.4-46.3); Red Blood Count 4.24 M/uL (4.70-6.10); White Blood Count 6.67 K/ul (4.8-10.8)
--- NOTE | 2023-07-19 06:38 | Electrocardiogram Report ---
Test Reason : Blood Pressure : / mmHG Vent. Rate : 066 BPM Atrial Rate : 094 BPM P-R Int : 000 ms QRS Dur : 090 ms QT Int : 412 ms P-R-T Axes : 000 -28 083 degrees QTc Int : 431 ms Poor data quality, interpretation may be adversely affected Atrial fibrillation with intermittent ventricular pacing Septal infarct (cited on or before 09-FEB-2023) Abnormal ECG When compared with ECG of 16-JUL-2023 11:23, Nonspecific T wave abnormality no longer evident in Inferior leads Confirmed by Juan Diaz ([id number]) on 07/19/2023 6:38:30 AM Referred By: REFERRED SELF Confirmed By:Juan Diaz
[2023-07-19 06:39] LABS: BUN Creatinine Ratio 18.1 (10-20); Calcium 9.1 mg/dl (8.6-10.3); Creatinine Clr Calc Pharmacy 58.5 ml/min; Est GFR (African American) 75.7 ml/min; Est GFR (Non-African American) 65.3 ml/min
[2023-07-19] MEDS: amLODIPine BESYLATE 5 MG TAB PO SCH (08:09)
[2023-07-19] MEDS: GABAPENTIN 400 MG CAP PO SCH (08:10)
[2023-07-19] MEDS: ATORVASTATIN 40 MG TAB PO SCH (08:10)
[2023-07-19] MEDS: METOPROLOL SUCC 25MG EXT REL TAB PO SCH (08:10)
[2023-07-19] MEDS: ASPIRIN 81 MG ECTAB PO SCH (08:10)
--- NOTE | 2023-07-19 08:37 | Hospitalist Progress Note ---
Date of Service July 17, 2023 Assessment & Plan (1) Atrial fibrillation with slow ventricular response: Plan: Cardiology consultation is pending. It appears he will need a permanent cardiac pacemaker. Cardiology consultation is pending. Neurology consultation is pending. (2) Change in mental status: Plan: Acute metabolic encephalopathy present on admission has resolved (3) HTN (hypertension), benign: Plan: Stable. Continue current medical Plan Anticipate placement of permanent cardiac pacemaker on July 18 and hopefully home on July 19 Admission and Anticipated Discharge Date Admission Date: July 17, 2023 Subjective This progress note is for July 17. The patient was seen by me and will be seen shortly by cardiology. It appears that he needs a pacemaker insertion. Brain MRI scan is negative for CVA. Neurology consultation appreciated. Review of Systems Review of Systems: Constitutional-no fever or chills ENT-no blurred vision, no double vision, no epistaxis, no sore throat Respiratory-no cough, no wheezing, no shortness of breath Cardiac-no palpitations, no chest pain, no syncope GI-no nausea, vomiting, diarrhea, melena, hematochezia -no urinary retention, no urinary incontinence, no dysuria, no hematuria Musculoskeletal-no joint pain, no muscle tenderness Skin-no bruising, no rashes, no pruritus Neuro-no isolated weakness, no paresthesia, no weakness Psych-no depression, no anxiety Physical Exam Physical Exam: General-alert and oriented x3, no fevers, no chills HEENT-head atraumatic and normocephalic, pupils equal and reactive to light, extraocular muscles intact Neck-no lymphadenopathy or thyromegaly, trachea midline Chest-clear to auscultation percussion. No rales, wheezing or rhonchi. Cardiac-bradycardic irregular rhythm. Rhythm consistent with atrial fibrillation. Normal S1 and S2 Abdomen-normal bowel sounds, nontender, no hepatosplenomegaly Extremities-no cyanosis, clubbing, or edema Neuro-cranial nerves II through XII intact, motor and sensory function within normal limits, strength symmetrical, no focal deficits Psych-normal affect, normal mood Results & Data Results & Data Vital Signs (Past 12 Hours) Vital Signs Temp Pulse Pulse Resp BP Pulse Ox O2 Del Method 07/19/23 07:28 36.8 C 60 18 170/88 H 98 Room Air 07/19/23 02:47 36.8 C 63 16 149/82 H 93 Room Air 07/18/23 22:00 60 07/18/23 22:45 36.8 C 60 18 164/94 H 99 Room Air 07/18/23 20:45 Room Air PG Care Time/CCT Total # of Minutes Spent Total Time Spent with Patient: Total time spent is greater than 50% in coordination of care (as documented) at patient's floor/unit and/or counseling patient: Coding Level of Care Code 80271 SUB INP/OBS CARE 3/50MIN Diagnoses Atrial fibrillation with slow ventricular response I48.91 Change in mental status R41.82 HTN (hypertension), benign I10
--- NOTE | 2023-07-19 09:35 | Cardiology Progress Note ---
Date of Service July 19, 2023 Assessment & Plan (1) Atrial fibrillation with slow ventricular response: (2) Status post placement of cardiac pacemaker: Plan 1. CONTRACT AGENT symptoms: The cause of his symptoms is unclear, but I believe it could well be bradycardia. It may still take some time for us to determine whether the pacemaker helps with these symptoms. 2. Atrial fibrillation with slow ventricular response: He has a quite slow heart rate, very often in the 30s, which will likely interfere with activities and could be causing his CONTRACT AGENT symptoms. Hopefully with the pacemaker he will feel better. 3. Postop day #1: His pacemaker is working well, the site looks good. He s hould be stable for discharge today. Admission and Anticipated Discharge Date Admission Date: July 17, 2023 Subjective He is feeling well today with minimal incisional discomfort, no further TIA symptoms. Physical Exam Physical Exam: The site is relatively dry with only minor bleeding at the site. Minor ecchymosis. No swelling or erythema. Cardiac rhythm is regular with no rub Lungs are clear Results & Data Vital Signs (Past 12 Hours) Vital Signs Temp Pulse Pulse Resp BP Pulse Ox O2 Del Method 07/19/23 08:00 60 07/19/23 08:00 Room Air 07/19/23 07:28 36.8 C 60 18 170/88 H 98 Room Air 07/19/23 02:47 36.8 C 63 16 149/82 H 93 Room Air 07/18/23 22:00 60 07/18/23 22:45 36.8 C 60 18 164/94 H 99 Room Air Laboratory Results CBC 07/19/23 Range/Units 05:36 WBC 6.67 (4.8-10.8) K/ul RBC 4.24 L (4.70-6.10) M/uL Hgb 13.8 L (14.0-18.0) g/dl Hct 38.6 L (42.0-52.0) % Plt Count 141 (130-400) K/uL Neut # (Auto) 4.43 (1.40-6.50) K/uL Lymph # (Auto) 1.53 (1.20-3.40) K/uL Lea # (Auto) 0.49 (0.11-0.59) K/uL Eos # (Auto) 0.18 (0.00-0.50) K/uL Baso # (Auto) 0.03 (0.00-0.20) K/uL Comprehensive Metabolic Panel 07/19/23 Range/Units 05:36 Sodium 137 (136-145) mmol/L Potassium 4.0 (3.5-5.1) mmol/L Chloride 104 (98-107) mmol/L Carbon Dioxide 27 (21-32) mmol/L BUN 19 (6-23) mg/dl Creatinine 1.05 (0.6-1.4) mg/dl Glucose 85 (70-99(Fasting)) mg/dl Calcium 9.1 (8.6-10.3) mg/dl Intake and Output 07/18/23 07/19/23 07/19/23 22:59 06:59 14:59 Intake Total 978 / 1418 200 / 1418 Output Total 101 / 926 300 / 926 Balance 877 / 492 -100 / 492 Intake: IV 728 / 728 Sodium Chloride 0.9% 1,000 ml @ 728 / 728 80 mls/hr IV .[id number] [facility] Rx#: [id number] Oral 250 / 690 200 / 690 Output: Urine 100 / 925 300 / 925 # Bowel Movements Diagnostic Findings 1. Postop ECG: Excellent left bundle pacing morphology 2. Telemetry: Normal pacemaker function, virtually 100% paced 3. Pacemaker evaluation: Excellent pacing and sensing characteristics 4. Chest x-ray: PG Care Time/CCT Total # of Minutes Spent Total Time Spent with Patient: Total time spent is greater than 50% in coordination of care (as documented) at patient's floor/unit and/or counseling patient: Coding Level of Care Code 13209 Post Operative Follow-Up Diagnoses Atrial fibrillation with slow ventricular response I48.91 Status post placement of cardiac pacemaker Z95.0 CPT Codes Pacemaker Single Lead Programming - [id number] ([id number])
--- NOTE | 2023-07-19 10:52 | Discharge Summary ---
Date of Service July 19, 2023 Admission HPI Per Admitting Provider Gracia is an 82-year-old male with a past medical history of A-fib on apixaban, hypertension, nonocclusive coronary disease, hyperlipidemia, vertigo who presents for intermittent and recurrent episodes of expressive aphasia in the preceding week. While in the ER he is noted to have multiple episodes of bradycardia down to the 30s with 3 to 4-second pauses. He is not on a beta- robert or negative chronotropic's. Last sunday Jer thinks he had a TIA. He lost his balance and could not talk/express words. Clinton suddenly off balance and couldn't standon his own and had 'very bad balance and couldn't seem to find my words.' NO headache, no facial asymmetry, no focal R or L sided symptoms. Lasted about 30 minutes. Today he had a little more achy pain but still within normal for his spinal stenosis, but felt his balance was off and lost his blanace and had to take steps backwards and lean on the wall to prvent himself from falling. No R or L sided sx again. Clinton off balance and overall weak. No chest pain, chest pressure, SoB, no sweats. Taeks 75mg losartan total. aPIXABAN, amlodipine. 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 Medical History: Reviewed Medications: Reviewed Surgical History: Reviewed Family history: Reviewed Allergies: Reviewed Social History: No tobacco product use. Does drink alcohol daily, usually 1 drink before dinner/glass of wine with dinner Code Status: Conditional code. Did discuss the nature of CPR and that someone is sick enough that if we are to be successful with resuscitation a temporary breathing tube is generally needed at least temporarily to protect airway. He expressed an understanding of this, but notes that he does not want intubation under any circumstances, but still would like chest compressions, medications, and shock if indicated. If the code was prolonged and it looks like he had a high chance of brain damage and he would not want further compressions done and to be made DNR/DNI if he was not resuscitated with an "reasonable short "amount of time. Patient prefers to keep conditional code rather than DNR/DNI or full code Principal Diagnosis Chronic atrial fibrillation with symptomatic bradycardia, acute metabolic encephalopathy, left fourth and fifth rib fracture Discharge Exam General-alert and oriented x3, no fevers, no chills HEENT-head atraumatic and normocephalic, pupils equal and reactive to light, extraocular muscles intact Neck-no lymphadenopathy or thyromegaly, trachea midline Chest-clear to auscultation percussion. No rales, wheezing or rhonchi. Cardiac-paced rhythm. Normal S1 and S2 Abdomen-normal bowel sounds, nontender, no hepatosplenomegaly Extremities-no cyanosis, clubbing, or edema Neuro-cranial nerves II through XII intact, motor and sensory function within normal limits, strength symmetrical, no focal deficits Psych-normal affect, normal mood Discharge Data Allergies Allergy/AdvReac Type Severity Reaction Status Date / Time sunflower seed Allergy Mild . Verified 06/13/23 13:07 house dust Allergy Verified 06/13/23 13:07 pramipexole [From Mirapex] Allergy makes Verified 06/13/23 13:07 extremely sleepy ragweed pollen Allergy Verified 06/13/23 13:07 tree and shrub pollen Allergy Verified 06/13/23 13:07 divalproex sodium AdvReac Severe Tachycardia Verified 06/13/23 13:07 Consultations 07/16/23 13:22 ED Decision to Admit Stat 07/16/23 14:29 Consult Neurology Routine 07/16/23 14:30 Consult Cardiology Routine Procedures Performed Operation Date: 07/18/23 09:30 Actual Procedures p Pacer with Ventricular Lead - Juan Diaz MD Ordered Studies 07/16/23 11:39 CT head/brain wo con Stat 07/16/23 13:42 MR brain wo con Routine 07/16/23 13:43 US carotid doppler BI Routine 07/16/23 13:44 MR angio head wo con Urgent 07/18/23 06:48 CL Cath Imgs for PACS use only Routine Hospital Course (1) Atrial fibrillation with slow ventricular response: Cardiology consultation appreciated. Pacemaker was implanted yesterday, July 18. Pacer insertion site is clean and dry without swelling. He is in a paced rhythm at this time. Neurology consultation noted. No evidence of CVA (2) Change in mental status: Acute metabolic encephalopathy present on admission has resolved (3) HTN (hypertension), benign: Stable. Continue current medical Plan Home today, July 19 . 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 SPECIAL CARE INSTRUCTIONS: * If bleeding occurs, apply direct pressure to area for 5 minutes. * Call your doctor if you have severe pain, fever, drainage or bleeding at site. * Keep dressing on and dry for 48 hours then remove. * Keep any scheduled doctor's appointment. * Implant Card - hand held device with website information given. SKIN IRRITATION: * You may experience some redness and/or swelling in the area where radiation was administered. If any skin irritation occurs, please contact your family physician. FOLLOW UP VISIT: Keep any scheduled doctor appointments. Metoprolol is new for blood pressure control. A prescription has been sent to [facility] Pending Studies at Discharge: No Stand-Alone Forms: My [facility] [place], Smoking Cessation Medications and DC Order Prescriptions: New metoprolol succinate 25 mg Tablet Extended Release 24 Hr 25 mg PO QAM Qty: 30 0RF Continued docusate sodium [Dulcolax Stool Softener (dss)] 100 mg capsule 100 mg PO DAILY losartan 50 mg tablet 50 mg PO QPM Qty: 90 3RF Rx Instructions: TAKE THIS MED IN ADDITION TO LOSARTAN 25MG = 75MG DAILY. apixaban 5 mg tablet 5 mg PO BID Qty: 180 3RF folic acid 1 mg tablet 1 mg PO HS Qty: 30 5RF gabapentin 400 mg capsule See Rx Instructions .ROUTE .COMPLEX Qty: 60 5RF Dose Instruction: TAKE 1 CAPSULE BY MOUTH TWO TIMES DAILY Rx Instructions: TAKE 1 CAPSULE BY MOUTH TWO TIMES DAILY amlodipine 5 mg tablet 5 mg PO DAILY Qty: 90 3RF losartan 25 mg tablet 25 mg PO QPM Qty: 30 5RF Rx Instructions: TAKE THIS MED IN ADDITION TO LOSARTAN 50MG =75MG DAILY. atorvastatin 20 mg tablet 20 mg PO HS Qty: 90 3RF tramadol 50 mg tablet See Rx Instructions PO .COMPLEX PRN (Reason: Pain) Qty: 30 0RF Rx Instructions: 1- 2 tablets PO Q 4-6 hours PRN; no more than 8 tablets daily temazepam 15 mg capsule 15 mg PO HS PRN (Reason: sleep) Qty: 90 0RF trazodone 50 mg tablet See Rx Instructions .ROUTE .COMPLEX Qty: 60 5RF Dose Instruction: TAKE 1 TO 2 TABLETS BY MOUTH AT BEDTIME NEEDED FOR SLEEPLESSNESS Rx Instructions: TAKE 1 TO 2 TABLETS BY MOUTH AT BEDTIME NEEDED FOR SLEEPLESSNESS calcium carbonate-vit D3-min 600 mg calcium- 400 unit tablet 1 tab PO BID nitroglycerin 0.4 mg tablet, sublingual 0.4 mg SL Q5M Qty: 25 2RF beclomethasone dipropionate 80 mcg/actuation HFA aerosol breath activated 2 inh inhalation HS PRN (Reason: Other) cyclobenzaprine 10 mg tablet 10 mg PO TID PRN (Reason: muscle spasm) Qty: 30 0RF albuterol sulfate 90 mcg/actuation HFA aerosol inhaler See Rx Instructions inhalation .COMPLEX PRN (Reason: shortness of breath) Qty: 8.5 3RF Rx Instructions: 1-2 PUFFS inhalation Q4-6 hours PRN; aspirin 81 mg tablet,delayed release (DR/EC) 81 mg PO DAILY Qty: 30 0RF meclizine 25 mg tablet 25 mg PO TID PRN (Reason: dizziness) hydrocodone-acetaminophen 5-325 mg tablet 1 tab PO TID PRN (Reason: Pain) triamcinolone acetonide 0.1 % cream See Rx Instructions .ROUTE .COMPLEX PRN (Reason: Other) Rx Instructions: APPLY TOPICALLY THREE TIMES DAILY; fluticasone propionate 50 mcg/actuation spray,suspension 2 spray intranasal DAILY PRN (Reason: Other) Rx Instructions: administer 2 sprays into each nostril daily metronidazole 1 % cream 1 applic topical DAILY PRN (Reason: Other) Discharge Orders: Discharge Order (Routine); Ordered 07/19/23 Ordered By: Keith Barrera Admission Data Admit Date/Time: 07/17/23 11:18 Attending Provider: Keith Barrera Admit Provider: Donovan Richards Primary Care Provider: Justa Moore Other Providers: Donovan Richards ; Kain Mcpherson ; Juan Diaz Coding Level of Care Code 66493 INP/OBS DISCH >30 MIN Diagnoses Atrial fibrillation with slow ventricular response I48.91 Change in mental status R41.82 HTN (hypertension), benign I10
--- NOTE | 2023-07-19 11:08 | Cardiology Progress Note ---
Date of Service July 19, 2023 Assessment & Plan (1) Status post placement of cardiac pacemaker: (2) Atrial fibrillation with slow ventricular response: (3) Change in mental status: (4) Non-occlusive coronary artery disease requiring drug therapy: Plan Doing well, okay for discharge. Resume apixaban tonight after he returns home. Initiated on low-dose metoprolol for his coronary artery disease, continue as outpatient Continue amlodipine and losartan for hypertension. We again discussed the possibility that his episodic/transient change in mental status may or may not have been due to bradycardia, he will report any future episodes which will prompt pacemaker interrogation to further evaluate any symptoms. He already has scheduled follow-up with me next week. Admission and Anticipated Discharge Date Admission Date: July 17, 2023 Subjective Mild incisional pain overnight, no complaints currently. Denies chest pain, dyspnea, palpitations. Telemetry shows atrial fibrillation with intermittent electronic ventricular pacing (narrow complex) at 60 bpm. Physical Exam Physical Exam: No distress. BP hypertensive (170/88 mmHg). Pulse 60 bpm and irregular. Skin: no ecchymoses or generalized lesions. HEENT: unremarkable. Neck: JVP at the clavicle at 90 degrees, no carotid bruits. Lungs: clear. Cardiac: regular rhythm, normal S1-2, 2/6 apical systolic murmur which is nonradiating, no diastolic murmur or gallop. Abdomen: benign. Extremities: no edema, pulses intact. Neurologic: normal affect and conversation, nonfocal. Results & Data Vital Signs (Past 12 Hours) Vital Signs Temp Pulse Pulse Resp BP Pulse Ox O2 Del Method 07/19/23 10:55 98.2 F 60 18 170/88 H 98 07/19/23 08:00 60 07/19/23 08:00 Room Air 07/19/23 07:28 98.2 F 60 18 170/88 H 98 Room Air 07/19/23 02:47 98.2 F 63 16 149/82 H 93 Room Air Laboratory Results Normal electrolytes, BUN 19, creatinine 1.05. Diagnostic Findings Chest x-ray unremarkable, no pneumothorax PG Care Time/CCT Total # of Minutes Spent Total Time Spent with Patient: Total time spent is greater than 50% in coordination of care (as documented) at patient's floor/unit and/or counseling patient: Coding Level of Care Code 04355 SUB INP/OBS CARE 2/35MIN Diagnoses Status post placement of cardiac pacemaker Z95.0 Atrial fibrillation with slow ventricular response I48.91 Change in mental status R41.82 Non-occlusive coronary artery disease requiring drug therapy I25.10
--- NOTE | 2023-07-19 12:48 | XRay Report ---
XR chest 2V PA/lateral HISTORY: EXACT TIME ORDERED Evaluate for pneumothorax and l COMPARISON: Chest 07/16/2023. FINDINGS: Interval placement of a left-sided single lead pacemaker. The lead appears intact. No pneum othorax. No pleural effusions. Calcified granuloma again noted within the left lower lobe. Otherwise, lungs are clear. The heart is normal in size. Left-sided rib fractures again noted. These appear to be subacute to chronic. Mild anterior wedging within the mid thoracic spine vertebral bodies is also likely chronic. IMPRESSION: Interval placement of a left-sided single lead pacemaker. No pneumothorax. ACT 112: Negative or not required by law. Electronically signed by: Mo Pablo M.D. 07/19/2023 12:46 PM
== END 2023-07-19 13:57 | disposition home or self-care (01) | DRG 242 ==
LOC: ED 11:13 → EDINP 11:13 → SUATTDRO 13:33 → EDINP 14:29 → 2E 07-17 17:47

== ENCOUNTER 2024-07-07 13:34 | Observation (INO) ==
[2024-07-07 14:46] LABS: Basophils # (auto) 0.04 K/uL (0.00-0.20); Basophils % (auto) 0.2 %; Eosinophils % (auto) 0.4 %; Hematocrit (blood only) 45.6 % (42.0-52.0); Hemoglobin 15.3 g/dl (14.0-18.0); Immature Granulocytes # (auto) 0.29 K/uL (0.01-0.20); Immature Granulocytes % (auto) 1.3 %; Lymphocytes # (auto) 1.28 K/uL (1.20-3.40); Lymphocytes % (auto) 5.7 %; Mean Corpuscular Hemoglobin 31.4 pg (25.0-34.0); Mean Corpuscular Hgb Conc 33.6 g/dL (32.0-36.0); Mean Corpuscular Volume 93.4 fL (80.0-100.0); Mean Platelet Volume 9.4 fL (9.4-12.4); Monocytes # (auto) 1.72 K/uL (0.11-0.59); Monocytes % (auto) 7.6 %; Neutrophils # (auto) 19.09 K/uL (1.40-6.50); Neutrophils % (auto) 84.8 %; Platelet Count 209 K/uL (130-400); RDW Coefficient of Variation 13.2 % (11.5-14.5); RDW Standard Deviation 45.2 fL (36.4-46.3); Red Blood Count 4.88 M/uL (4.70-6.10); White Blood Count 22.52 K/ul (4.8-10.8)
[2024-07-07 14:57] LABS: Albumin Globulin Ratio 1.1 (0.9-2); Albumin Level 4.1 gm/dl (3.4-5.0); BUN Creatinine Ratio 14.8 (10-20); Bilirubin,Total 1.9 mg/dl (0.2-1.0); Calcium 9.8 mg/dl (8.6-10.3); Creatinine Clr Calc Pharmacy 39.2 ml/min; Globulin 3.9 gm/dl (2.5-4.0); Potassium 4.1 mmol/L (3.5-5.1)
[2024-07-07 15:04] LABS: Troponin I High Sensitivity 42.3 pg/ml (0-20)
[2024-07-07 15:24] LABS: INR 1.3 (0.9-1.1); Partial Thromboplastin Ratio 1.3; Partial Thromboplastin Time 36 Seconds (21-31)
--- NOTE | 2024-07-07 15:38 | XRay Report ---
SINGLE VIEW CHEST CLINICAL HISTORY: Atypical chest pain FINDINGS: A PA chest radiograph is compared to study dated 07/19/2023. A single lead cardiac pacemake r is unchanged in position and partially obscures the left mid chest. The heart is enlarged. The pulm onary vasculature is noncongested. There is patchy airspace consolidation in the right midlung, as we ll as airspace consolidation at both lung bases. Calcific granulomas again seen in the left lower aric g. No large pleural effusion or pneumothorax is seen. The skeletal structures are osteopenic. There a re chronic/healed left-sided rib fractures. IMPRESSION: 1. Multifocal airspace consolidation is typical for pneumonia. Clinical correlation will be required and radiographic follow-up to resolution is recommended. 2. Cardiomegaly and cardiac pacemaker without radiographic evidence of congestive failure. ACT 112: Negative or not required by law. Electronically signed by: Jim Curtis M.D. 07/07/2024 3:36 PM
[2024-07-07] MEDS: cefTRIAXone SODIUM 2,000 MG/50 ML BAG IV STA (16:14)
--- NOTE | 2024-07-07 16:21 | Electrocardiogram Report ---
Test Reason : Blood Pressure : */* mmHG Vent. Rate : 69 BPM Atrial Rate : * BPM P-R Int : * ms QRS Dur : 90 ms QT Int : 356 ms P-R-T Axes : * -9 12 degrees QTcB Int : 381 ms Atrial fibrillation with frequent ventricular-paced complexes Low voltage QRS Cannot rule out Inferior infarct , age undetermined Abnormal ECG When compared with ECG of 18-Jul-2023 15:31, No significant change Confirmed by Juan Diaz ([id number]) on 07/07/2024 4:21:45 PM Referred By: Confirmed By: Juan Diaz
[2024-07-07] MEDS: DOXYCYCLINE HYCLATE 100 MG in DEXTROSE 5% MINI-B 100 ML IV STA (16:29)
--- NOTE | 2024-07-07 16:45 | Emergency Department Note ---
Impression & Plan Sepsis, Multifocal pneumonia, Leukocytosis, Non-ST elevation [place] (NSTEMI), Elevated lactic acid level, Elevated procalcitonin, Acute dyspnea ED Provider Note HISTORY OF PRESENT ILLNESS: Patient is an 83-year-old male presenting with cough and shortness of breath. Patient reports he tested positive for COVID 15 days ago. He states that he had initially felt awful but then started to improve, but then started feeling ill again in the last 5 to 7 days. He states he has had a cough that has been nonproductive and some chest congestion and increasing shortness of breath. He denies any chest pain. Denies any DVT or PE history. He is on Eliquis for history of A-fib. Denies any history of cardiac stents. He has been taking Tylenol, so he is unsure if he is had a fever. He denies any supplemental oxygen use. reports he has been intermittently confused over the last few days. ROS: as above PHYSICAL EXAM: Constitutional: Patient appears in no acute distress. HENT: Head: Normocephalic and atraumatic. Eyes: EOMI, PERRL Mouth/Throat: Mucous membranes moist. Neck: Trachea midline. Neck supple. Cardiovascular: Irregular rhythm. No murmurs, rubs or gallops. Intact distal pulses. Pulmonary/Chest: No respiratory distress. Breath sounds clear and equal bilaterally. Coarse breath sounds bilaterally. Abdominal: Abdomen soft, no tenderness, rebound or guarding. Musculoskeletal: No edema, tenderness or deformity noted. Skin: Warm and dry. No rash, erythema, pallor or cyanosis Psychiatric: Appropriate mood and affect for situation. Neurological: Alert and keenly responsive. CN II-XII grossly intact, moving all extremities equally and fully. MDM: - Vitals signs showed hypertension. - History obtained via patient. History as above. - Chronic conditions affecting care: HTN; Afib; HLD - Differential diagnoses include, but are not limited to: Congestive heart failure; acute coronary syndrome; COPD/asthma exacerbation; pulmonary edema; pulmonary embolism; pneumonia; pneumothorax; viral syndrome - Order placed for continuous cardiac monitoring. At this time, monitor showed rate of 69 bpm with irregular rhythm, per my interpretation. - External medical records reviewed. Express care note dated 07/01/2024 was reviewed. Patient was seen at their clinic for his chest congestion and cough. He was started on prednisone taper and albuterol inhaler. - EKG interpreted by myself showed atrial fibrillation. Rate 69 bpm. QT 356. No acute ischemic changes. - Laboratory workup interpreted by myself showed leukocytosis (WBC 22.52) with neutrophilic predominance; elevated INR (1.3); elevated procalcitonin (0.86); elevated lactate (2.5); hyponatremia (Na 135); elevated troponin (42.3) - CXR showed bilateral airspace consolidations concerning for pneumonia, per my interpretation. - Blood cultures obtained. - Patient given 100 mg IV doxycycline and 2g IV rocephin in ER. Due to national shortage of IV fluids, patient stable vital signs, IV fluids were not ordered to be administered at this time. - Discussion was had with corrections caseworker about patient's case and need for admission - Hospitalist consulted for admission - [facility] 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) 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, 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 Obstructive sleep apnea (Chronic) Labile hypertension Recurrent chest pain On apixaban therapy (Acute) Asthma (Chronic) Common migraine without aura (Chronic) Homocystinemia (Chronic) Insomnia (Chronic) Osteopenia (Chronic) Peripheral neuropathy (Chronic) Urine incontinence (Chronic) Vertigo, intermittent (Chronic) Medical History Subependymoma Cerebrovascular disease Speech dysfluency Recurrent falls Non-occlusive coronary artery disease requiring drug therapy 30-40% LAD & Cx stenoses, RCA normal Closed rib fracture H/O prostate cancer Lumbar facet joint syndrome Sleep apnea HTN (hypertension), benign Status post placement of bone anchored hearing aid (BAHA) 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 2021 (original implant at [facility]) Allergic rhinitis Lumbar stenosis Restless legs syndrome Rosacea Tinnitus Tremor Vitamin D deficiency Surgical History 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) S/P left knee surgery S/P prostatectomy Family History Family/Other Diabetes Hypertension unknown who Brother Diabetes Mother Diverticulitis Father Esophageal cancer Grandfather (Maternal) Stroke Other No family history of adverse response to anesthesia No family history of bleeding disorder Denies family history of Ovarian cancer Prostate cancer Myocardial infarction Breast cancer Colorectal cancer Social History Smoking Status: Never smoker Second Hand Exposure: Yes (parents smoked); Do You Dip or Chew Tobacco: No; Hx Alcohol Use: Yes Alcohol type: beer, wine and other Alcohol Intake Frequency: 4 or More x per/Week Alcohol Intake Frequency Comment: 2 drinks a day- drink before dinner and wine with dinner Hx Substance Use: No Preferred Language: Italian Communication Ability: Effective Visual Impairment: No Limitations Hearing Ability: Use of Hearing Aid Risk Control Manager Required: No Beliefs That Will Affect Care: None marital status: Current Living Situation: Spouse Current Living Situation Comment: lives with Kaela current occupational status: retired 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 Verified 07/01/24 12:00 house dust Allergy Verified 07/01/24 12:00 pramipexole [From Mirapex] Allergy makes Verified 07/01/24 12:00 extremely sleepy ragweed pollen Allergy Verified 07/01/24 12:00 tree and shrub pollen Allergy Verified 07/01/24 12:00 divalproex sodium AdvReac Severe Tachycardia Verified 07/01/24 12:00 Home Meds Home Medications Medication Instructions Recorded Confirmed calcium 600 mg (as carbonate)-vit 1 tab PO BID 12/08/22 07/07/24 D3 10 mcg (400 unit)-minerals tablet docusate sodium 100 mg capsule 100 mg PO DAILY PRN Constipation 12/14/23 07/07/24 (Dulcolax Stool Softener (docusate)) nitroglycerin 0.4 mg sublingual 0.4 mg sublingual Q5M PRN Chest 12/14/23 07/07/24 tablet Pain albuterol sulfate 90 mcg/actuation 1 - 2 puff inhalation .Q 4-6 HOURS 07/07/24 07/07/24 aerosol inhaler PRN shortness of breath folic acid 1 mg tablet 1 mg PO HS 07/07/24 07/07/24 gabapentin 400 mg capsule 400 mg PO BID 07/07/24 07/07/24 losartan 25 mg tablet 25 mg PO QPM 07/07/24 07/07/24 trazodone 50 mg tablet 50 - 100 mg PO HS PRN SLEEPLESSNESS 07/07/24 07/07/24 Previous Rx's Medication Instructions Recorded apixaban 5 mg tablet 5 mg PO BID #180 tabs 10/05/23 atorvastatin 20 mg tablet 20 mg PO HS #90 tabs 02/07/24 mirabegron 50 mg tablet,extended 50 mg PO DAILY #90 tabs 02/13/24 release 24 hr (Myrbetriq) metoprolol succinate 25 mg 25 mg PO QAM #90 tabs 02/26/24 tablet,extended release 24 hr amlodipine 5 mg tablet 5 mg PO DAILY #90 tabs 04/07/24 temazepam 15 mg capsule 15 mg PO HS PRN sleep #90 caps 06/23/24 losartan 50 mg tablet 50 mg PO QPM #90 tabs 06/24/24 Results & Data (ED) Vital Signs Vital Signs - 24 hr 07/07/24 13:53 07/07/24 16:18 07/07/24 16:18 Temperature 36.6 C Temperature Source Temporal Artery Scan Pulse Rate 80 Pulse Rate [Apical] 73 Pulse Rate from SpO2 Sensor Respiratory Rate 20 20 Respiratory Effort / Characteristics Non-Labored Spontaneous Non-Labored Spontaneous Respiratory Depth Normal Normal Respiratory Pattern Regular Blood Pressure 135/69 Blood Pressure [Right Arm] 141/82 H Blood Pressure Mean 91 Blood Pressure Mean [Right Arm] 101 Pulse Oximetry 98 94 94 Oxygen Delivery Method Room Air Room Air Room Air Sepsis Recent Fever Within 48 Hours No Sepsis New/Unexplained Change in Mental Status No Sepsis Action Taken by Nursing No Action Required 07/07/24 16:30 07/07/24 16:42 Temperature Temperature Source Pulse Rate 61 69 Pulse Rate [Apical] Pulse Rate from SpO2 Sensor 66 Respiratory Rate 13 Respiratory Effort / Characteristics Respiratory Depth Respiratory Pattern Blood Pressure Blood Pressure [Right Arm] Blood Pressure Mean Blood Pressure Mean [Right Arm] Pulse Oximetry 95 Oxygen Delivery Method Sepsis Recent Fever Within 48 Hours Sepsis New/Unexplained Change in Mental Status Sepsis Action Taken by Nursing Laboratory Data 07/07/24 14:18 07/07/24 14:18 Lab Results 07/07/24 07/07/24 Range/Units 14:18 16:13 WBC 22.52 H (4.8-10.8) K/ul RBC 4.88 (4.70-6.10) M/uL Hgb 15.3 (14.0-18.0) g/dl Hct 45.6 (42.0-52.0) % MCV 93.4 (80.0-100.0) fL MCH 31.4 (25.0-34.0) pg MCHC 33.6 (32.0-36.0) g/dL RDW Std Deviation 45.2 (36.4-46.3) fL RDW Coeff of Trudi 13.2 (11.5-14.5) % Plt Count 209 (130-400) K/uL MPV 9.4 (9.4-12.4) fL Immature Gran % (Auto) 1.3 % Neut % (Auto) 84.8 % Lymph % (Auto) 5.7 % [place] % (Auto) 7.6 % Eos % (Auto) 0.4 % Baso % (Auto) 0.2 % Neut # (Auto) 19.09 H (1.40-6.50) K/uL Lymph # (Auto) 1.28 (1.20-3.40) K/uL [place] # (Auto) 1.72 H (0.11-0.59) K/uL Eos # (Auto) 0.10 (0.00-0.50) K/uL Baso # (Auto) 0.04 (0.00-0.20) K/uL Immature Gran # (Auto) 0.29 H (0.01-0.20) K/uL PT 14.0 H (9.0-12.0) Seconds INR 1.3 H (0.9-1.1) APTT 36 H (21-31) Seconds PTT Ratio 1.3 Sodium 135 L (136-145) mmol/L Potassium 4.1 (3.5-5.1) mmol/L Chloride 97 L (98-107) mmol/L Carbon Dioxide 29 (21-32) mmol/L Anion Gap 9 (3-11) BUN 19 (6-23) mg/dl Creatinine 1.28 (0.6-1.4) mg/dl Est Cr Clr Drug Dosing 39.2 ml/min eGFR 55.19 BUN/Creatinine Ratio 14.8 (10-20) Glucose 113 H (70-99(Fasting)) mg/dl Lactate 2.5 H* (0.4-2.0) mmol/L Calcium 9.8 (8.6-10.3) mg/dl Total Bilirubin 1.9 H (0.2-1.0) mg/dl AST 17 (13-39) U/L ALT 22 (7-52) U/L Alkaline Phosphatase 94 (34-104) U/L Troponin I High Sens 42.3 H 40.8 H (0-20) pg/ml Total Protein 8.0 (6.0-8.3) gm/dl Albumin 4.1 (3.4-5.0) gm/dl Globulin 3.9 (2.5-4.0) gm/dl Albumin/Globulin Ratio 1.1 (0.9-2) Procalcitonin 0.86 H (0-0.5) ng/ml Administered Medications Discontinued Medications Doxycycline Hyclate 100 mg/ (Dextrose) 100 mls @ 50 mls/hr IV NOW STA Stop: 07/07/24 17:58 Last Admin: 07/07/24 16:29 Dose: 50 mls/hr Documented By: CARO Ceftriaxone Sodium (Rocephin) 2,000 mg in 50 mls @ 100 mls/hr IV NOW STA Stop: 07/07/24 16:28 Last Infusion: 07/07/24 16:29 Dose: Infused Documented By: Admin: 07/07/24 16:14 Dose: 100 mls/hr Documented By: CARO Imaging Data Radiologist's Impression: Chest X-Ray 07/07/24 13:57 SINGLE VIEW CHEST CLINICAL HISTORY: Atypical chest pain FINDINGS: A PA chest radiograph is compared to study dated 07/19/2023. A single lead cardiac pacemaker is unchanged in position and partially obscures the left mid chest. The heart is enlarged. The pulmonary vasculature is noncongested. There is patchy airspace consolidation in the right midlung, as well as airspace consolidation at both lung bases. Calcific granulomas again seen in the left lower lung. No large pleural effusion or pneumothorax is seen. The skeletal structures are osteopenic. There are chronic/healed left-sided rib fractures. IMPRESSION: 1. Multifocal airspace consolidation is typical for pneumonia. Clinical correlation will be required and radiographic follow-up to resolution is recommended. 2. Cardiomegaly and cardiac pacemaker without radiographic evidence of congestive failure. ACT 112: Negative or not required by law. Electronically signed by: Jim Curtis M.D. 07/07/2024 3:36 PM Discharge Plan Visit Data Chief Complaint: Congestion Stated Complaint: COVID, CONGESTION ED Provider: Bety Hardin Discharge Problem: Sepsis, Multifocal pneumonia, Leukocytosis, Non-ST elevation [place] (NSTEMI), Elevated lactic acid level, Elevated procalcitonin, Acute dyspnea Forms Stand Alone Forms: My [employer] Prescriptions Prescriptions: No Action docusate sodium [Dulcolax Stool Softener (dss)] 100 mg capsule 100 mg PO DAILY PRN (Reason: Constipation) apixaban 5 mg tablet 5 mg PO BID Qty: 180 3RF atorvastatin 20 mg tablet 20 mg PO HS Qty: 90 3RF Myrbetriq 50 mg tablet extended release 24 hr 50 mg PO DAILY Qty: 90 3RF metoprolol succinate 25 mg tablet extended release 24 hr 25 mg PO QAM Qty: 90 1RF amlodipine 5 mg tablet 5 mg PO DAILY Qty: 90 3RF temazepam 15 mg capsule 15 mg PO HS PRN (Reason: sleep) Qty: 90 0RF losartan 50 mg tablet 50 mg PO QPM Qty: 90 0RF Rx Instructions: TAKE THIS MED IN ADDITION TO LOSARTAN 25MG = 75MG DAILY. calcium carbonate-vit D3-min 600 mg calcium- 400 unit tablet 1 tab PO BID nitroglycerin 0.4 mg tablet, sublingual 0.4 mg SL Q5M PRN (Reason: Chest Pain) Rx Instructions: If taken 3 times over 15 minutes, please call 911. albuterol sulfate 90 mcg/actuation HFA aerosol inhaler 1 - 2 puff inhalation .Q 4-6 HOURS PRN (Reason: shortness of breath) Rx Instructions: 1-2 PUFFS inhalation Q4-6 hours PRN; gabapentin 400 mg capsule 400 mg PO BID Rx Instructions: TAKE 1 CAPSULE BY MOUTH TWO TIMES DAILY losartan 25 mg tablet 25 mg PO QPM Rx Instructions: TAKE 1 TABLET BY MOUTH EVERY EVENING IN ADDITION TO 50MG TABLET folic acid 1 mg tablet 1 mg PO HS trazodone 50 mg tablet 50 - 100 mg PO HS PRN (Reason: SLEEPLESSNESS) Rx Instructions: TAKE 1 TO 2 TABLETS BY MOUTH AT BEDTIME NEEDED FOR SLEEPLESSNESS Referrals Referrals: Justa Moore MD [Primary Care Provider] -
--- NOTE | 2024-07-07 17:53 | History & Physical Report ---
Date of Service July 07, 2024 Assessment & Plan (1) Pneumonia: Plan: Covid positive with symptoms 15 days ago; ongoing symptoms of cough, diarrhea, dizziness, and decreased appetite - CXR on admission showed multifocal consolidation - CBC on admission showed leukocytosis, WBC 22.52 with neutrophil predominance - Lactate mildly elevated 2.5 - Procalcitonin mildly elevated 0.86 - CURB 65 score 1 - Given 2 g Rocephin IV and doxycycline IV in ED - blood cultures pending - with lactate < 4 and not hypotensive; will defer fluid bolus at this time - Hemodynamically stable, non-hypoxic, and low risk CURB65 score - will likely discharge home tomorrow - IV Rocephin would be repeated at 1500 tomorrow - changed to oral abx Augmentin, can continue doxycycline (2) Acute diarrhea: Plan: History of COVID; diarrhea for 3 days abut 2 weeks ago, resumed this morning with loose watery stools - With leukocytosis (WBC 22.52), concern for C diff - stool cultures and C diff pending (3) Atrial fibrillation with slow ventricular response: Plan: History of a fib with pacemaker placement - EKG on admission showed A fib with ventricularly paced rhythm - continue home metoprolol, amlodipine, and Eliquis (4) Obstructive sleep apnea: Plan: - uses CPAP overnight, continue on admission (5) HTN (hypertension): Plan: - stable, mildly elevated - continue home losartan Plan VTE ppx: SCDs Diet: regular Code status: DNR/DNI Dispo: Med/surg Chronic stable diagnosis: HLD - recent lipid panel WNL Insomnia - continue home temazepam and trazodone prn Will likely discharge home tomorrow on oral antibiotics with negative stool cultures. Admission and Anticipated Discharge Date Admission Date: 07/07/24 History of Present Illness Chief Complaint: Congestion/ dyspnea Primary Care Provider: Justa Moore MD Patient is an 83-year-old male with a past medical history of atrial fibrillation, pacemaker placement, SOMMER, hyperlipidemia, insomnia, asthma. He presents today with ongoing congestion and a cough for the past 2 weeks. He tested positive for COVID 15 days ago at home, and his symptoms have fluctuated since then. He has had a cough for the past 2 weeks that is now wet with yellow sputum production. He had a fever about 2 weeks ago that has subsided, although patient has been taking Tylenol every day. He also had diarrhea 2 weeks ago that has restarted this morning. He has chronic dizziness with balance issues, but has been worse than normal. His appetite has been decreased and he feels he is not drinking fluids as much as he should. He feels as thought he can take a deep breath. Patient denies headache, chest pain, abdominal pain, nausea, vomiting, edema, numbness, tingling. Patient assessed at bedside with his present. He denies a past medical history of diabetes, VTE. Did have prostate cancer That was removed 20 years ago. He does not smoke. He drinks 1 glass of wine with dinner daily. He took all his home medications this morning. He uses CPAP at bedtime. He has a DNR/DNR status. Allergies Allergy/AdvReac Type Severity Reaction Status Date / Time sunflower seed Allergy Mild . Verified 07/01/24 12:00 house dust Allergy Verified 07/01/24 12:00 pramipexole [From Mirapex] Allergy makes Verified 07/01/24 12:00 extremely sleepy ragweed pollen Allergy Verified 07/01/24 12:00 tree and shrub pollen Allergy Verified 07/01/24 12:00 divalproex sodium AdvReac Severe Tachycardia Verified 07/01/24 12:00 Home Medications Medication Instructions Recorded Confirmed Type calcium 600 mg (as carbonate)-vit 1 tab PO BID 12/08/22 07/07/24 History D3 10 mcg (400 unit)-minerals tablet apixaban 5 mg tablet 5 mg PO BID #180 tabs 10/05/23 07/07/24 Rx docusate sodium 100 mg capsule 100 mg PO DAILY PRN Constipation 12/14/23 07/07/24 History (Dulcolax Stool Softener (docusate)) nitroglycerin 0.4 mg sublingual 0.4 mg sublingual Q5M PRN Chest 12/14/23 07/07/24 History tablet Pain atorvastatin 20 mg tablet 20 mg PO HS #90 tabs 02/07/24 07/07/24 Rx mirabegron 50 mg tablet,extended 50 mg PO DAILY #90 tabs 02/13/24 07/07/24 Rx release 24 hr (Myrbetriq) metoprolol succinate 25 mg 25 mg PO QAM #90 tabs 02/26/24 07/07/24 Rx tablet,extended release 24 hr amlodipine 5 mg tablet 5 mg PO DAILY #90 tabs 04/07/24 07/07/24 Rx temazepam 15 mg capsule 15 mg PO HS PRN sleep #90 caps 06/23/24 07/07/24 Rx losartan 50 mg tablet 50 mg PO QPM #90 tabs 06/24/24 07/07/24 Rx albuterol sulfate 90 mcg/actuation 1 - 2 puff inhalation .Q 4-6 HOURS 07/07/24 07/07/24 History aerosol inhaler PRN shortness of breath folic acid 1 mg tablet 1 mg PO HS 07/07/24 07/07/24 History gabapentin 400 mg capsule 400 mg PO BID 07/07/24 07/07/24 History losartan 25 mg tablet 25 mg PO QPM 07/07/24 07/07/24 History trazodone 50 mg tablet 50 - 100 mg PO HS PRN SLEEPLESSNESS 07/07/24 07/07/24 History amoxicillin 875 mg-potassium 1 tab PO BIDM #13 tabs 07/08/24 Rx clavulanate 125 mg tablet doxycycline hyclate 100 mg capsule 100 mg PO BID 6 days #13 caps 07/08/24 Rx Past Med/Surg History Problem List (Updated 07/08/24 @ 12:17 by Scot Castro) Acute dyspnea (Acute) Elevated procalcitonin (Acute) Elevated lactic acid level (Acute) Non-ST elevation [place] (NSTEMI) (Acute) Leukocytosis (Acute) Multifocal pneumonia (Acute) Sepsis (Acute) Hyperlipidemia Acute diarrhea Pneumonia Congestion of nasal sinus Wears hearing aid in left ear Oticon Opn S 1 disp elsewhere 2019 Hypercholesterolemia Atrial fibrillation with slow ventricular response Lumbar radiculopathy Degenerative joint disease (DJD) of lumbar spine Acquired deviated nasal septum Chronic sinusitis 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) 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, 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 Obstructive sleep apnea (Chronic) Labile hypertension Recurrent chest pain On apixaban therapy (Acute) Asthma (Chronic) Common migraine without aura (Chronic) Homocystinemia (Chronic) Insomnia (Chronic) Osteopenia (Chronic) Peripheral neuropathy (Chronic) Urine incontinence (Chronic) Vertigo, intermittent (Chronic) Medical History Subependymoma Cerebrovascular disease Speech dysfluency Recurrent falls Non-occlusive coronary artery disease requiring drug therapy 30-40% LAD & Cx stenoses, RCA normal Closed rib fracture H/O prostate cancer Lumbar facet joint syndrome Sleep apnea HTN (hypertension), benign Status post placement of bone anchored hearing aid (BAHA) 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 2021 (original implant at [facility]) Allergic rhinitis Lumbar stenosis Restless legs syndrome Rosacea Tinnitus Tremor Vitamin D deficiency Surgical History 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) S/P left knee surgery S/P prostatectomy Family History Family/Other Diabetes Hypertension unknown who Brother Diabetes Mother Diverticulitis Father Esophageal cancer Grandfather (Maternal) Stroke Other No family history of adverse response to anesthesia No family history of bleeding disorder Denies family history of Ovarian cancer Prostate cancer Myocardial infarction Breast cancer Colorectal cancer Social History Smoking Status: Never smoker Second Hand Exposure: No; Do You Dip or Chew Tobacco: No; Hx Alcohol Use: Yes Alcohol type: wine and hard liquor Alcohol Intake Frequency: 4 or More x per/Week Alcohol Intake Frequency Comment: 2 drinks a day- drink before dinner and wine with dinner Hx Substance Use: No Preferred Language: Greenlandic Communication Ability: Effective Visual Impairment: No Limitations Hearing Ability: Use of Hearing Aid Insurance Operations Rep Required: No Beliefs That Will Affect Care: None marital status: Current Living Situation: Spouse Current Living Situation Comment: lives with Kaela current occupational status: retired 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 Non-toxic appearing. HEENT- EOMI, mucous membranes moist. Hearing grossly intact. Heart-normal S1 and S2. No murmurs, rubs or gallops. Lungs-decreased in bilateral lower lobes, no respiratory distress, no accessory muscle use. Abdomen-normal bowel sounds and soft. No ascites noted. Non-tender. Extremities- no clubbing, cyanosis, or edema. Rheumatologic-normal range of motion. Psychiatric-normal affect. Results & Data Results & Data Vital Signs (Past 12 Hours) Vital Signs Temp Pulse Pulse Resp BP BP Pulse Ox 07/07/24 16:42 69 07/07/24 16:30 61 13 95 07/07/24 16:18 94 07/07/24 16:18 73 20 141/82 H 94 07/07/24 13:53 36.6 C 80 20 135/69 98 O2 Del Method 07/07/24 16:42 07/07/24 16:30 07/07/24 16:18 Room Air 07/07/24 16:18 Room Air 07/07/24 13:53 Room Air Laboratory Results Reviewed CBC, BMP, lactate, procalcitonin, troponin Code Status & VTE Plan Code Status DNR/DNI VTE Prophylaxis Plan VTE Prophylaxis will be ordered: Yes Supervising Physician Co-Signing Physician Notes I personally saw and examined the patient. I independently reviewed the labs, EKG, imaging, problem list, medication list, past medical history and family history. I verified all lawler points and agree with Jo Ann Whitt PA-C with the following exceptions and/or additions: 83-year-old male presents to the ER with ongoing congestion and cough for the last 2 weeks. Tested positive for COVID 15 days ago. He is currently on room air. O/E A&Ox2, not orientated to time, HS RRR, no murmurs, Chest bibasal crackles, Abdo SNT A/P CAP - CURB 65 - 2 (he appears more confused than when seen earlier by PA), Agree with change of antibiotics to Augmentin + doxycycline tomorrow. Some of his WBC may also be steroid induced as prednisone prescribed on July 01. Acute diarrhea - stool PCR + c. diff to rule this out as cause of his WBC PG Care Time/CCT Total # of Minutes Spent Total Time Spent with Patient: Total time spent is greater than 50% in coordination of care (as documented) at patient's floor/unit and/or counseling patient: Coding Level of Care Code None Diagnoses Pneumonia J18.9 Acute diarrhea R19.7 Atrial fibrillation with slow ventricular response I48.91 Obstructive sleep apnea G47.33 HTN (hypertension) I10
[2024-07-07 18:40] LABS: Adenovirus PCR Not Detected (NotDetected); Bordetella parapertussis PCR Not Detected (NotDetected); Bordetella pertussis PCR Not Detected (NotDetected); Chlamydia pneumoniae PCR Not Detected (NotDetected); Coronavirus 229E PCR Not Detected (NotDetected); Coronavirus CoV-2 (COVID19)PCR DETECTED (NotDetected); Coronavirus HKU1 PCR Not Detected (NotDetected); Coronavirus NL63 PCR Not Detected (NotDetected); Coronavirus OC43PCR Not Detected (NotDetected); Human Metapneumovirus PCR Not Detected (NotDetected); Influenza A PCR Not Detected (NotDetected); Influenza B PCR Not Detected (NotDetected); Mycoplasma pneumoniae PCR Not Detected (NotDetected); Parainfluenza Virus 1 PCR Not Detected (NotDetected); Parainfluenza Virus 2 PCR Not Detected (NotDetected); Parainfluenza Virus 3 PCR Not Detected (NotDetected); Parainfluenza Virus 4 PCR Not Detected (NotDetected); Respiratory Syncytial VirusPCR Not Detected (NotDetected); Rhinovirus/Enterovirus PCR Not Detected (NotDetected)
[2024-07-07] MEDS ORDERED: traZODone HCL 50 MG TAB PO PRN (21:50)
[2024-07-07] MEDS ORDERED: TEMAZEPAM 15 MG CAPSULE PO PRN (21:50)
[2024-07-07] MEDS ORDERED: ALBUTEROL HFA 8 GM INHALER INH PRN (21:50)
[2024-07-07] MEDS: LOSARTAN POTASSIUM 25 MG TAB PO SCH (22:21)
[2024-07-07] MEDS: GABAPENTIN 400 MG CAP PO SCH (22:22)
[2024-07-07] MEDS: ATORVASTATIN 20 MG TAB PO SCH (22:22)
[2024-07-07] MEDS: APIXABAN 5 MG TABLET PO SCH (22:22)
[2024-07-07] MEDS: LOSARTAN POTASSIUM 50 MG TAB PO SCH (22:22)
[2024-07-07 23:42] VITALS: RESP 18
[2024-07-08] MEDS: DOXYCYCLINE HYCLATE 100 MG in DEXTROSE 5% MINI-B 100 ML IV SCH (05:34)
[2024-07-08 07:34] VITALS: BP 114/67; TEMP 98.2; O2SAT 96
[2024-07-08 07:40] LABS: Hematocrit (blood only) 39.3 % (42.0-52.0); Hemoglobin 13.4 g/dl (14.0-18.0); Mean Corpuscular Hemoglobin 31.6 pg (25.0-34.0); Mean Corpuscular Hgb Conc 34.1 g/dL (32.0-36.0); Mean Corpuscular Volume 92.7 fL (80.0-100.0); Mean Platelet Volume 9.5 fL (9.4-12.4); Platelet Count 172 K/uL (130-400); RDW Coefficient of Variation 13.1 % (11.5-14.5); RDW Standard Deviation 43.9 fL (36.4-46.3); Red Blood Count 4.24 M/uL (4.70-6.10); White Blood Count 16.14 K/ul (4.8-10.8)
[2024-07-08 07:46] LABS: BUN Creatinine Ratio 16.4 (10-20); Calcium 9.1 mg/dl (8.6-10.3); Creatinine Clr Calc Pharmacy 50.6 ml/min
[2024-07-08] MEDS: METOPROLOL SUCC 25MG EXT REL TAB PO SCH (09:15)
[2024-07-08] MEDS: VIBEGRON 75 MG TAB PO SCH (09:15)
[2024-07-08] MEDS: AMOXICILLIN/CLAVULANATE 875 MG TAB PO SCH (09:15)
[2024-07-08] MEDS: amLODIPine BESYLATE 5 MG TAB PO SCH (09:15)
--- NOTE | 2024-07-08 11:14 | Discharge Summary ---
Discharge Summary Date of Service July 08, 2024 Principal Dx & Hospital Course #1 = Principal Diagnosis (1) Pneumonia: Covid positive with symptoms 15 days ago; ongoing symptoms of cough, diarrhea, dizziness, and decreased appetite - CXR on admission showed multifocal consolidation - CBC on admission showed leukocytosis, WBC 22.52 with neutrophil predominance - completed course of steroids recently; possibly contributing to leukocytosis - Lactate mildly elevated 2.5 - Procalcitonin mildly elevated 0.86 - CURB 65 score 1 - Given 2 g Rocephin IV and doxycycline IV in ED - with lactate < 4 and not hypotensive; will defer fluid bolus at this time - cough improved since admission with antibiotics - Hemodynamically stable, non-hypoxic, and low risk CURB65 score - to discharge today 07/08 - Continue with Augmentin 875 PO BID and Doxycycline 100 mg PO BID x 7 days including dose he had on admission - blood cultures pending (2) Elevated troponin: Troponin mildly elevated - trended downward on admission likely elevated due to demand ischemia in setting of acute illness - cardiac cath 2020 due to CAD hx showed nonobstructive CAD - EKG negative for signs of ischemia - denies chest pain - no need for echo at this time -continue home ELiquis, statin, beta robert (3) Acute diarrhea: History of COVID; diarrhea for 3 days abut 2 weeks ago, resumed 07/07 with loose watery stools - With leukocytosis (WBC 22.52), concern for C diff but no recent antibiotic use nd leukocytosis from PNA and possibly recent steroid use - no recent antibiotic use or C diff exposure - stool cultures and C diff not taken; patient has not had episode of diarrhea since 07/07 - took an Imodium 07/07 (4) Atrial fibrillation with slow ventricular response: History of a fib with pacemaker placement - 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 Notes For Next Care Provider Please follow up with patient's blood cultures. Medication Changes From Visit Continue with Augmentin 875 PO BID and Doxycycline 100 mg PO BID x 7 days including dose he had on admission Admission HPI Per Admitting Provider Patient is an 83-year-old male with a past medical history of atrial fibrillation, pacemaker placement, SOMMER, hyperlipidemia, insomnia, asthma. He presents today with ongoing congestion and a cough for the past 2 weeks. He tested positive for COVID 15 days ago at home, and his symptoms have fluctuated since then. He has had a cough for the past 2 weeks that is now wet with yellow sputum production. He had a fever about 2 weeks ago that has subsided, although patient has been taking Tylenol every day. He also had diarrhea 2 weeks ago that has restarted this morning. He has chronic dizziness with balance issues, but has been worse than normal. His appetite has been decreased and he feels he is not drinking fluids as much as he should. He feels as thought he can take a deep breath. Patient denies headache, chest pain, abdominal pain, nausea, vomiting, edema, numbness, tingling. Patient assessed at bedside with his present. He denies a past medical history of diabetes, VTE. Did have prostate cancer That was removed 20 years ago. He does not smoke. He drinks 1 glass of wine with dinner daily. He took all his home medications this morning. He uses CPAP at bedtime. He has a DNR/DNR status. Admission Exam Per Admitting Provider The patient is awake, alert and oriented 3, well developed and well nourished, normocephalic and atraumatic, in no acute distress. Non-toxic appearing. HEENT- EOMI, mucous membranes moist. Hearing grossly intact. Heart-normal S1 and S2. No murmurs, rubs or gallops. Lungs-decreased in bilateral lower lobes, no respiratory distress, no accessory muscle use. Abdomen-normal bowel sounds and soft. No ascites noted. Non-tender. Extremities- no clubbing, cyanosis, or edema. Rheumatologic-normal range of motion. Psychiatric-normal affect. Discharge Exam The patient is awake, alert and oriented 3, well developed and well nourished, normocephalic and atraumatic, in no acute distress. Non-toxic appearing. HEENT- EOMI, mucous membranes moist. Hearing grossly intact. Heart-normal S1 and S2. No murmurs, rubs or gallops. Lungs-decreased in bilateral lower lobes, no respiratory distress, no accessory muscle use. Abdomen-normal bowel sounds and soft. No ascites noted. Non-tender. Extremities- no clubbing, cyanosis, or edema. Rheumatologic-normal range of motion. Psychiatric-normal affect. Discharge Plan Discharge Items Patient Disposition: Home - Self-Care Reason For Visit: PNEUMONIA Discharge Diagnosis: 1. Pneumonia Condition on Discharge: Good Activity: Resume your previous activity Non-emergency contact: Primary Care Provider Call non-emergency contact if: you have any medication questions and your symptoms worsen Follow-up/Referrals: Justa Moore MD [Primary Care Provider] - 07/17/24 10:20 am (follow up in 1- 2 weeks) Diet: Regular Addtl Attending Provider Instructions: You were seen in the hospital for pneumonia. You were given IV antibiotics on admission, which have been transition to oral antibiotics, Augmentin and Doxycycline, that you will take for 7 total days. You have already been given 1 dose of Augmentin, so you will take another dose tonight and continue for 6 more days after that. You have been given 2 doses of doxycycline, so you will take another tonight and continue for 6 more days after that. You are being sent home on an antibiotic called Augmentin. This can sometimes cause diarrhea. It can also put patient's at an increased risk of a bacteria known as Clostridium difficile (C diff). If you have more than 3-5 episodes of diarrhea a day on this medication, call your family doctor to be evaluated. You are being sent home on an antibiotic called Doxycycline. Sometimes patients can have an upset stomach or nausea with this medication. I recommend that you take it will food to prevent this, although do not take it with any dairy products or milk as these can cause a negative reaction with the medication. Please sit upright for 30-60 minutes after taking this medication and drink a glass of water after to prevent this from sitting in your esophagus and causing irritation. You had blood cultures on admission to assess for possible sepsis, although other lab work and your vitals signs argue against sepsis. These take multiple days to result back, I have noted for your PCP to follow up with these. It is recommended that you follow up with your PCP in 1-2 weeks after being discharged. Pending Studies at Discharge: Yes Studies:: Blood cultures Stand-Alone Forms: [facility] Medications and DC Order Prescriptions: New amoxicillin-pot clavulanate 875-125 mg Tablet 1 tab PO BIDM Qty: 13 0RF doxycycline hyclate 100 mg capsule 100 mg PO BID 6 Days Qty: 13 0RF Continued docusate sodium [Dulcolax Stool Softener (dss)] 100 mg capsule 100 mg PO DAILY PRN (Reason: Constipation) apixaban 5 mg tablet 5 mg PO BID Qty: 180 3RF atorvastatin 20 mg tablet 20 mg PO HS Qty: 90 3RF Myrbetriq 50 mg tablet extended release 24 hr 50 mg PO DAILY Qty: 90 3RF metoprolol succinate 25 mg tablet extended release 24 hr 25 mg PO QAM Qty: 90 1RF amlodipine 5 mg tablet 5 mg PO DAILY Qty: 90 3RF temazepam 15 mg capsule 15 mg PO HS PRN (Reason: sleep) Qty: 90 0RF losartan 50 mg tablet 50 mg PO QPM Qty: 90 0RF Rx Instructions: TAKE THIS MED IN ADDITION TO LOSARTAN 25MG = 75MG DAILY. calcium carbonate-vit D3-min 600 mg calcium- 400 unit tablet 1 tab PO BID nitroglycerin 0.4 mg tablet, sublingual 0.4 mg SL Q5M PRN (Reason: Chest Pain) Rx Instructions: If taken 3 times over 15 minutes, please call 911. albuterol sulfate 90 mcg/actuation HFA aerosol inhaler 1 - 2 puff inhalation .Q 4-6 HOURS PRN (Reason: shortness of breath) Rx Instructions: 1-2 PUFFS inhalation Q4-6 hours PRN; gabapentin 400 mg capsule 400 mg PO BID Rx Instructions: TAKE 1 CAPSULE BY MOUTH TWO TIMES DAILY losartan 25 mg tablet 25 mg PO QPM Rx Instructions: TAKE 1 TABLET BY MOUTH EVERY EVENING IN ADDITION TO 50MG TABLET folic acid 1 mg tablet 1 mg PO HS trazodone 50 mg tablet 50 - 100 mg PO HS PRN (Reason: SLEEPLESSNESS) Rx Instructions: TAKE 1 TO 2 TABLETS BY MOUTH AT BEDTIME NEEDED FOR SLEEPLESSNESS Discharge Orders: Discharge Order (Routine); Ordered 07/08/24 Ordered By: Jo Ann Chowdary/Other Patient Handouts: COVID-19 Home Care, When You Have Pneumonia Admission Data Admit Date/Time: 07/07/24 18:13 Attending Provider: Yadira Ludwig Admit Provider: Urban Resendiz Primary Care Provider: Justa Moore Other Providers: Urban Resendiz Hospital Stay Data Consultations 07/07/24 16:58 ED Decision to Admit Stat Diagnostic Imagining Performed Chest X-Ray 07/07/24 13:57 SINGLE VIEW CHEST CLINICAL HISTORY: Atypical chest pain FINDINGS: A PA chest radiograph is compared to study dated 07/19/2023. A single lead cardiac pacemaker is unchanged in position and partially obscures the left mid chest. The heart is enlarged. The pulmonary vasculature is noncongested. There is patchy airspace consolidation in the right midlung, as well as airspace consolidation at both lung bases. Calcific granulomas again seen in the left lower lung. No large pleural effusion or pneumothorax is seen. The skeletal structures are osteopenic. There are chronic/healed left-sided rib fractures. IMPRESSION: 1. Multifocal airspace consolidation is typical for pneumonia. Clinical correlation will be required and radiographic follow-up to resolution is recommended. 2. Cardiomegaly and cardiac pacemaker without radiographic evidence of congestive failure. ACT 112: Negative or not required by law. Electronically signed by: Jim Curtis M.D. 07/07/2024 3:36 PM Discharge Instructions Given to Patient (Per Discharging Provider) You were seen in the hospital for pneumonia. You were given IV antibiotics on admission, which have been transition to oral antibiotics, Augmentin and Doxycycline, that you will take for 7 total days. You have already been given 1 dose of Augmentin, so you will take another dose tonight and continue for 6 more days after that. You have been given 2 doses of doxycycline, so you will take another tonight and continue for 6 more days after that. You are being sent home on an antibiotic called Augmentin. This can sometimes cause diarrhea. It can also put patient's at an increased risk of a bacteria known as Clostridium difficile (C diff). If you have more than 3-5 episodes of diarrhea a day on this medication, call your family doctor to be evaluated. You are being sent home on an antibiotic called Doxycycline. Sometimes patients can have an upset stomach or nausea with this medication. I recommend that you take it will food to prevent this, although do not take it with any dairy products or milk as these can cause a negative reaction with the medication. Please sit upright for 30-60 minutes after taking this medication and drink a glass of water after to prevent this from sitting in your esophagus and causing irritation. You had blood cultures on admission to assess for possible sepsis, although other lab work and your vitals signs argue against sepsis. These take multiple days to result back, I have noted for your PCP to follow up with these. It is recommended that you follow up with your PCP in 1-2 weeks after being discharged. Supervising Physician Co-Signing Physician Notes PA Supervision Note: I personally saw and examined the patient. I verified all lawler points and agree with JAZ Whitt with the following exceptions and/or additions: S-Pt feeling much better. Cough improved, diarrhea resolved, no abd pain, no nausea. Is eating but food doesn't taste good. No SOB. Feels stronger and is walking around room independently O- Vitals reviewed Gen: [AAOx3, NAD] HEENT: [anicteric sclerae, EOMI] CV: [RRR no mgr nl S1S2] Pulm: +bibasilar crackles, no wcr,unlabored breating] Abd: [+BS soft NT ND no masses or hernias] Ext: [no edema] Skin: [no rashes, warm/dry] Neuro: [full strength throughout] CBC, BMP reviewed A/P-83 yo male with recent COVID-19, here with secondary bacterial PNA, diarrhea associated with COVID. Much improved on antibiotics. Not hypoxic, is eating and drinking, hydrated, no further diarrhea. Stable for dc to home on po Augmentin and doxy to finish 7 day course. Total Time Total Time Spent Total Time Spent (In Minutes): 45 mins Coding Level of Care Code None Diagnoses Pneumonia J18.9 Elevated troponin R79.89 Acute diarrhea R19.7 Atrial fibrillation with slow ventricular response I48.91 Obstructive sleep apnea G47.33 HTN (hypertension) I10
--- NOTE | 2024-07-08 12:38 | Billing Data ---
Date of Service July 08, 2024 Coding Level of Care Code 85158 INP/OBS DISCH >30 MIN Time Spent (min) 45 Comment includes time spent on discharge planning,med reconciliation, lab review
[2024-07-08 13:00] VITALS: PULSE 80
--- NOTE | 2024-07-08 16:22 | Billing Data ---
Date of Service July 07, 2024 Coding Level of Care Code 94599 INT INP/OBS CARE
== END 2024-07-08 13:43 | disposition home or self-care (01) ==
LOC: EDINP 13:34 → ED 13:34 → SUATTDRO 18:13 → 3N 23:41

== ENCOUNTER 2025-01-30 12:02 | Observation (INO) ==
--- NOTE | 2025-01-30 12:36 | XRay Report ---
XR chest 1V portable HISTORY: 84 years-old Male weakness acute weakness COMPARISON: November 27, 2024, 07/30/2019. TECHNIQUE: AP view of the chest FINDINGS: Left subclavian pacer. Mild cardiomegaly. No pneumothorax, pleural effusion, airspace consolidation o r pulmonary edema. 6 mm nodular focus projected over the left lung base is unchanged back to at least 2019. Subacute to chronic appearing nondisplaced left-sided rib fractures are again noted. IMPRESSION: No acute process. ACT 112: Negative or not required by law. The above report was generated using voice recognition software. It may contain grammatical, syntax o r spelling errors. Electronically signed by: Primo Thao M.D. 01/30/2025 12:34 PM
[2025-01-30 12:44] LABS: Basophils # (auto) 0.03 K/uL (0.00-0.20); Basophils % (auto) 0.8 %; Eosinophils # (auto) 0.25 K/uL (0.00-0.50); Eosinophils % (auto) 6.5 %; Hematocrit (blood only) 38.5 % (42.0-52.0); Hemoglobin 13.4 g/dl (14.0-18.0); Immature Granulocytes # (auto) 0.01 K/uL (0.01-0.20); Immature Granulocytes % (auto) 0.3 %; Lymphocytes % (auto) 28.4 %; Mean Corpuscular Hgb Conc 34.8 g/dL (32.0-36.0); Mean Corpuscular Volume 91.9 fL (80.0-100.0); Mean Platelet Volume 9.7 fL (9.4-12.4); Monocytes # (auto) 0.25 K/uL (0.11-0.59); Monocytes % (auto) 6.5 %; Neutrophils # (auto) 2.23 K/uL (1.40-6.50); Neutrophils % (auto) 57.5 %; Platelet Count 119 K/uL (130-400); RDW Coefficient of Variation 12.9 % (11.5-14.5); RDW Standard Deviation 43.3 fL (36.4-46.3); Red Blood Count 4.19 M/uL (4.70-6.10); White Blood Count 3.87 K/ul (4.8-10.8)
[2025-01-30 12:47] LABS: iSTAT Creatinine 1.2 mg/dl (0.6-1.3); iSTAT Hemoglobin 12.9 g/dl (14.0-18.0); iSTAT Ionized Calcium 1.2 mmol/l (1.12-1.32); iSTAT Potassium 4.1 mmol/L (3.3-5.0)
[2025-01-30 13:03] LABS: Albumin Globulin Ratio 1.5 (0.9-2); Albumin Level 3.9 gm/dl (3.4-5.0); BUN Creatinine Ratio 13.4 (10-20); Bilirubin,Total 1.3 mg/dl (0.2-1.0); Calcium 9.3 mg/dl (8.6-10.3); Creatinine Clr Calc Pharmacy 61.1 ml/min; Globulin 2.6 gm/dl (2.5-4.0); Magnesium 1.9 mg/dl (1.7-2.4); Potassium 4.2 mmol/L (3.5-5.1); Total Protein 6.5 gm/dl (6.0-8.3)
[2025-01-30 13:08] LABS: Troponin I High Sensitivity 7.1 pg/ml (0-20)
[2025-01-30 13:17] LABS: Thyroid Stimulating Hormone 2.638 uIu/ml (0.300-4.500)
[2025-01-30] MEDS: OPTIRAY 320 125ml IV ONE (13:24)
--- NOTE | 2025-01-30 13:55 | CT Scan Report ---
CT head/brain wo con CLINICAL HISTORY: 84 years-old Male with neuro deficit, acute stroke suspected. Acute stroke like sy mptoms TECHNIQUE: Multiple axial CT images of the head were obtained without contrast. A dose lowering tech nique was utilized adhering to the principles of ALARA. COMPARISON: CTA head of same day, head CT 11/27/2024 FINDINGS: No acute intracranial hemorrhage, midline shift, intracranial mass, hydrocephalus, territorial ischem ia or abnormal extra-axial collection. 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 Streak artifact from a metallic density structure within the right temporal bone on imag e 12 series 3. Prior bilateral lens repair. The calvarium is intact. Mastoid air cells are clear. Mild maxillary and moderate ethmoid sinus muco emre thickening. IMPRESSION: No acute intracranial abnormality. ACT 112: Negative or not required by law. The above report was generated using voice recognition software. It may contain grammatical, syntax o r spelling errors. Electronically signed by: Primo Thao M.D. 01/30/2025 1:53 PM
--- NOTE | 2025-01-30 14:02 | CT Scan Report ---
CTA ANGIOGRAPHY OF THE HEAD CLINICAL HISTORY: neuro deficit, acute stroke suspected. Syncope. COMPARISON STUDY: Head CT November 27, 2024. MRA of the head July 16, 2023. TECHNIQUE: Helical axial images of the head were obtained following uneventful intravenous administr ation of 120 cc of Optiray. Sagittal and coronal reconstructions were viewed as well as maximal inten sity projections on an independent 3-D workstation. Automated exposure control was utilized for the study. A dose lowering technique was utilized adhering to the principles of ALARA. FINDINGS: No acute intracranial hemorrhage, midline shift or mass effect is present. Please note that the head CT will be reported separately. The bilateral M1, M2, A1 and A2 segments are patent. There is no intracranial aneurysm. No intracranial vessel occlusion is identified. Posterior circulation is intact. IMPRESSION: Unremarkable CTA of the head. ACT 112: Negative or not required by law. Electronically signed by: Montrell Lomeli M.D. 01/30/2025 2:00 PM
--- NOTE | 2025-01-30 14:03 | CT Scan Report ---
CT angio neck with con CLINICAL HISTORY: 84 years-old Male with neuro deficit, acute stroke suspected. Acute stroke like symptoms COMPARISON STUDY: CTA head of same day TECHNIQUE: Following the IV administration of 120 of Optiray, CT angiogram of the neck was performed from the aortic arch to the skull base. Images are reviewed in the axial, sagittal, and coronal plane s. 3-D MIPS images are created and assessed. IV contrast was administered without complication. All m easurements were calculated based on NASCET criteria. A dose lowering technique was utilized adherin g to the principles of ALARA. CT DOSE: 1167.46 mGy.cm FINDINGS: Left subclavian pacer. Three-vessel morphology of the thoracic aortic arch. Patent common carotid art eries. Moderate atherosclerosis of the left carotid bulb causing less than 50% stenosis. There is mod erate to advanced atherosclerosis of the right carotid bulb causing approximately 80% stenosis at the origin of the right ICA. Codominant and patent vertebral arteries. The lung apices are clear without pneumothorax. Unremarkable soft tissues. Degenerative changes of th e cervical spine. IMPRESSION: 1. 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 2. Otherwise unremarkable CTA of the neck. ACT 112: Negative or not required by law. The above report was generated using voice recognition software. It may contain grammatical, syntax o r spelling errors. Electronically signed by: Primo Thao M.D. 01/30/2025 2:02 PM
--- NOTE | 2025-01-30 14:41 | Emergency Department Note ---
Impression & Plan Stroke-like symptoms, Expressive aphasia, Generalized weakness, Hx of spinal stenosis ED Provider Note NAME: NOA DIALLO AGE: 84 SEX: Male INFORMANT: Patient , and family friend ED PROVIDER(S): Mati Sow MD CHIEF COMPLAINT: Strokelike symptoms PLAN: Disposition: Admitted Outpatient prescription management: none Referral: None MEDICAL DECISION MAKING: Patient presented because of strokelike symptoms and with help from his and neighbor it appears that he had about 1 hour of symptoms that started at 1115 this morning. Patient is not a TNK candidate given his anticoagulation use. Symptoms have seemed to have resolved at this point in time. His CT scan does show no evidence of acute bleed or infarction. Angiography does reveal a narrowed right ICA. Patient had a paced rhythm on ECG. Interrogation did not reveal any abnormalities per [employer]. Patient's laboratory testing was unremarkable. Given the patient's strokelike symptoms and what now appears to be resolution and further evaluation and management in the hospital will be necessary. Consultation was made with the [facility] hospitalist service. Case discussed with Dr. Barrera. patient was evaluated in the ER and admitted for further management. Care/management discussed with: backpackers manager, hospitalist Level of care consideration(s): After review of the information above and other included data, I feel the patient requires escalation of care to admission Triage Nursing notes: reviewed and agree them. Vital Signs: reviewed and remarkable for no significant abnormalities Additional History obtained from: Patient's and neighbor regarding time of onset and symptom Chronic Medical/Social Conditions affecting care: Spinal stenosis Prior/ Outside/ External records reviewed: none Differential Diagnosis: CVA, TIA,Infection, dehydration, metabolic abnormality, hypo/hyperglycemia, electrolyte disturbance, anemia, hypoxia, cardiac sources, intracerebral event, toxicologic, neurologic, as well as other pathologies. Diagnostics, independently interpreted by me: ECG: Twelve-lead ECG reveals a paced rhythm at [address] elevation. Cardiac Monitoring: Cardiac monitoring ordered by me: The patient was placed on continuous cardiac monitoring and observed. It revealed a paced rhythm at 62 bpm. Medical decision rules: none Imaging studies: CT and CT angiography of the head and neck reveal no evidence of acute CVA or vessel occlusion. Right ICA stenosis noted. Chest x-ray. Findings: A chest x-ray was performed and revealed no pneumothorax, effusion, infiltrate, pulmonary edema, free air under the diaphragm, or wide mediastinum. Impression: No acute disease. HPI: 84 year old Male arrives for evaluation of strokelike symptoms. This started around 1115 this morning and is described as difficulty getting his words out. When the patient woke up this morning he was tired but was not having any difficulty speaking. A neighbor came by to visit and noted he seemed to be tired but speaking normally. About 1115 hrs. this morning he then had difficulty getting his words out. stated that he was more fatigued. His balance seemed to be worse than usual and he was generally weak. He does have a history of spinal stenosis and balance issues for many years. There is no falls or trauma. EMS was summoned. On their assessment and transport the patient had no issues with his speech and seemed to have returned to baseline. presented to the ER after the patient's arrival and notes that he is much improved but still seems somewhat off.. The patient also notes the following associated symptoms, none. The patient has been given no medication for relieving factors. Current pain is rated as 0/10. No prior history of stroke. Patient is anticoagulated and does have a pacemaker. Pt denies LOC, headache, fevers, chills, diaphoresis, visual changes, neck pain, chest pain, breathing difficulties, nausea, vomiting, abdominal pain, back pain, melena, hematochezia, urinary symptoms, numbness, lymphadenopathy, rash, or other complaints.. PAST MEDICAL HISTORY: See Below, spinal stenosis, pneumonia, CAD, A-fib PAST SURGICAL HISTORY: See Below, pacemaker SOCIAL HISTORY: See Below, HOME MEDICATIONS: See Below ALLERGIES: See Below VITALS: See Below PHYSICAL EXAMINATION: GENERAL: Awake, alert, age appropriate-appearing, in no distress HENT: Normocephalic, atraumatic. Oropharynx unremarkable. EYES: Normal conjunctiva. Sclera non-icteric. PERRLA. EOMI. NECK: Inspection normal. Non-tender. Supple. No nuchal rigidity. FROM. No masses. RESPIRATORY: Clear to auscultation. No wheezes. No rales. Normal respiratory effort. CARDIAC: Normal rate. Normal rhythm. No murmurs. No rubs. Extremities warm and well perfused. Pulses equal. No JVD. GI: Soft, non-distended. No tenderness to palpation. No rebound or guarding. No masses. RECTAL: Deferred. MUSCULOSKELETAL: Atraumatic. Chest examination reveals no tenderness. The back is symmetrical on inspection without obvious abnormality. There is no CVA tenderness to palpation. No joint edema. LOWER EXTREMITIES: Calves are equal size bilaterally and non-tender. No edema. No discoloration. NEURO: Normal sensorium. No sensory or motor deficits noted. Patient is hard of hearing with loss of hearing in the right ear which patient states is chronic. Cranial nerves II through XII intact otherwise. Speech is normal with no slurring. There is no drift. Normal rapid alternating movements and normal [id number]. SKIN: No rash or jaundice noted. PROCEDURES: none CRITICAL CARE: none OBSERVATION NOTE: none Past Med/Surg History Problem List (Updated 01/30/25 @ 14:41 by Mati Sow MD) Hx of spinal stenosis (Acute) Generalized weakness (Acute) Expressive aphasia (Acute) Stroke-like symptoms (Acute) Elevated procalcitonin (Acute) Elevated lactic acid level (Acute) Non-ST elevation MT (NSTEMI) (Acute) Leukocytosis (Acute) Multifocal pneumonia (Acute) Sepsis (Acute) Hyperlipidemia Acute diarrhea Pneumonia Congestion of nasal sinus Wears hearing aid in left ear Oticon Opn S 1 disp elsewhere 2020 Hypercholesterolemia Atrial fibrillation with slow ventricular response Lumbar radiculopathy Degenerative joint disease (DJD) of lumbar spine Acquired deviated nasal septum Chronic sinusitis 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) 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, 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 Obstructive sleep apnea (Chronic) Labile hypertension Recurrent chest pain On apixaban therapy (Acute) Asthma (Chronic) Common migraine without aura (Chronic) Homocystinemia (Chronic) Insomnia (Chronic) Osteopenia (Chronic) Peripheral neuropathy (Chronic) Urine incontinence (Chronic) Vertigo, intermittent (Chronic) Medical History Subependymoma Cerebrovascular disease Speech dysfluency Recurrent falls Non-occlusive coronary artery disease requiring drug therapy Closed rib fracture H/O prostate cancer Lumbar facet joint syndrome Sleep apnea HTN (hypertension), benign Status post placement of bone anchored hearing aid (BAHA) Allergic rhinitis Lumbar stenosis Restless legs syndrome Rosacea Tinnitus Tremor Vitamin D deficiency Surgical History 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) S/P left knee surgery S/P prostatectomy Family History Family/Other Diabetes Hypertension Brother Diabetes Mother Diverticulitis Father Esophageal cancer Grandfather (Maternal) Stroke Other No family history of adverse response to anesthesia No family history of bleeding disorder Denies family history of Ovarian cancer Prostate cancer Myocardial infarction Breast cancer Colorectal cancer Social History Smoking Status: Never smoker Second Hand Exposure: No; Do You Dip or Chew Tobacco: No; Hx Alcohol Use: Yes Alcohol type: wine and hard liquor Alcohol Intake Frequency: 4 or More x per/Week Alcohol Intake Frequency Comment: 2 drinks a day- drink before dinner and wine with dinner Hx Substance Use: No Preferred Language: Urdu Communication Ability: Effective Visual Impairment: No Limitations Hearing Ability: Use of Hearing Aid Marriage And Family Social Worker Required: No Beliefs That Will Affect Care: None marital status: Current Living Situation: Spouse Current Living Situation Comment: lives with Kaela current occupational status: retired 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 Verified 01/30/25 15:13 house dust Allergy Verified 01/30/25 15:13 pramipexole [From Mirapex] Allergy makes Verified 01/30/25 15:13 extremely sleepy ragweed pollen Allergy Verified 01/30/25 15:13 tree and shrub pollen Allergy Verified 01/30/25 15:13 divalproex sodium AdvReac Severe Tachycardia Verified 01/30/25 15:13 Home Meds Home Medications Medication Instructions Recorded Confirmed cyclobenzaprine 10 mg tablet 10 mg PO HS PRN Muscle Spasm 01/30/25 01/30/25 losartan 25 mg tablet 25 mg PO BID 01/30/25 01/30/25 methocarbamol 500 mg tablet 500 mg PO Q8H 01/30/25 01/30/25 trazodone 50 mg tablet 50 - 100 mg PO HS PRN Sleeplessness 01/30/25 01/30/25 Previous Rx's Medication Instructions Recorded atorvastatin 20 mg tablet 20 mg PO HS #90 tabs 02/07/24 amlodipine 5 mg tablet 5 mg PO DAILY #90 tabs 04/07/24 losartan 50 mg tablet 50 mg PO QPM #90 tabs 06/24/24 folic acid 1 mg tablet 1 mg PO HS #90 tabs 08/04/24 metoprolol succinate 25 mg 25 mg PO QAM #90 tabs 08/12/24 tablet,extended release 24 hr albuterol sulfate 90 mcg/actuation 1 - 2 puff inhalation .Q 4-6 HOURS 08/14/24 aerosol inhaler PRN shortness of breath #8.5 grams gabapentin 400 mg capsule 400 mg PO BID #180 caps 09/08/24 temazepam 15 mg capsule 15 mg PO HS PRN sleep #90 caps 09/29/24 apixaban 5 mg tablet 5 mg PO BID #180 tabs 10/09/24 nitroglycerin 0.4 mg sublingual 0.4 mg sublingual Q5M PRN Chest 11/09/24 tablet Pain #25 tabs Results & Data (ED) Vital Signs Vital Signs - 24 hr 01/30/25 12:02 01/30/25 12:02 01/30/25 12:22 Temperature 36.7 C Temperature Source Oral Pulse Rate 63 62 64 Pulse Rate [Apical] Pulse Rate from SpO2 Sensor Respiratory Rate 14 14 Respiratory Effort / Characteristics Non-Labored Respiratory Depth Normal Respiratory Pattern Regular Blood Pressure 138/90 Blood Pressure [Right Arm] Blood Pressure Mean 106 Blood Pressure Mean [Right Arm] Pulse Oximetry 96 98 Oxygen Delivery Method Room Air Room Air Sepsis Recent Fever Within 48 Hours No Sepsis New/Unexplained Change in Mental Status N/A Sepsis Action Taken by Nursing No Action Required 01/30/25 13:00 01/30/25 13:33 01/30/25 14:09 Temperature Temperature Source Pulse Rate 60 60 69 Pulse Rate [Apical] Pulse Rate from SpO2 Sensor 60 61 58 L Respiratory Rate 14 11 L 15 Respiratory Effort / Characteristics Respiratory Depth Respiratory Pattern Blood Pressure 155/87 H Blood Pressure [Right Arm] Blood Pressure Mean 109 Blood Pressure Mean [Right Arm] Pulse Oximetry 99 99 98 Oxygen Delivery Method Sepsis Recent Fever Within 48 Hours Sepsis New/Unexplained Change in Mental Status Sepsis Action Taken by Nursing 01/30/25 14:11 01/30/25 14:36 Temperature Temperature Source Pulse Rate 61 Pulse Rate [Apical] 60 Pulse Rate from SpO2 Sensor 60 Respiratory Rate 20 13 Respiratory Effort / Characteristics Non-Labored Respiratory Depth Normal Respiratory Pattern Blood Pressure 152/90 H Blood Pressure [Right Arm] 155/87 H Blood Pressure Mean 110 Blood Pressure Mean [Right Arm] 109 Pulse Oximetry 98 98 Oxygen Delivery Method Room Air Sepsis Recent Fever Within 48 Hours Sepsis New/Unexplained Change in Mental Status Sepsis Action Taken by Nursing Laboratory Data 01/30/25 12:27 01/30/25 12:27 Lab Results 01/30/25 01/30/25 01/30/25 Range/Units 12:27 12:35 15:08 WBC 3.87 L (4.8-10.8) K/ul RBC 4.19 L (4.70-6.10) M/uL Hgb 13.4 L (14.0-18.0) g/dl POC Hgb 12.9 L (14.0-18.0) g/dl Hct 38.5 L (42.0-52.0) % POC Hct 38 L (42-52) % MCV 91.9 (80.0-100.0) fL MCH 32.0 (25.0-34.0) pg MCHC 34.8 (32.0-36.0) g/dL RDW Std Deviation 43.3 (36.4-46.3) fL RDW Coeff of Trudi 12.9 (11.5-14.5) % Plt Count 119 L (130-400) K/uL MPV 9.7 (9.4-12.4) fL Immature Gran % (Auto) 0.3 % Neut % (Auto) 57.5 % Lymph % (Auto) 28.4 % [place] % (Auto) 6.5 % Eos % (Auto) 6.5 % Baso % (Auto) 0.8 % Neut # (Auto) 2.23 (1.40-6.50) K/uL Lymph # (Auto) 1.10 L (1.20-3.40) K/uL [place] # (Auto) 0.25 (0.11-0.59) K/uL Eos # (Auto) 0.25 (0.00-0.50) K/uL Baso # (Auto) 0.03 (0.00-0.20) K/uL Immature Gran # (Auto) 0.01 (0.01-0.20) K/uL POC Sodium 140 (135-144) mmol/L Sodium 138 (136-145) mmol/L POC Potassium 4.1 (3.3-5.0) mmol/L Potassium 4.2 (3.5-5.1) mmol/L POC Chloride 101 (101-112) mmol/L Chloride 104 (98-107) mmol/L Carbon Dioxide 30 (21-32) mmol/L POC Total CO2 27 (24-31) mmol/L Anion Gap 4 (3-11) POC Anion Gap 16.0 (16-25) mmol/L POC BUN 14 (7-18) mg/dl BUN 13 (6-23) mg/dl Creatinine 0.97 (0.6-1.4) mg/dl POC Creatinine 1.2 (0.6-1.3) mg/dl Est Cr Clr Drug Dosing 61.1 ml/min eGFR 76.50 BUN/Creatinine Ratio 13.4 (10-20) Glucose 98 (70-99(Fasting)) mg/dl POC Glucose (other) 96 (70-99) mg/dl Calcium 9.3 (8.6-10.3) mg/dl POC Ioniz Calcium Fabio 1.20 (1.12-1.32) mmol/l Magnesium 1.9 (1.7-2.4) mg/dl Total Bilirubin 1.3 H (0.2-1.0) mg/dl AST 20 (13-39) U/L ALT 18 (7-52) U/L Alkaline Phosphatase 74 (34-104) U/L Troponin I High Sens 7.1 (0-20) pg/ml Total Protein 6.5 (6.0-8.3) gm/dl Albumin 3.9 (3.4-5.0) gm/dl Globulin 2.6 (2.5-4.0) gm/dl Albumin/Globulin Ratio 1.5 (0.9-2) TSH 2.638 (0.300-4.500) uIu/ml Urine Color Yellow Urine Appearance Clear (Clear) Urine pH 7.5 (4.5-7.5) Ur Specific [place] 1.035 H (1.000-1.030) Urine Protein Negative (Negative) Urine Glucose (UA) Negative (Negative) Urine Ketones Negative (Negative) Urine Blood Negative (Negative) Urine Nitrite Negative (Negative) Urine Bilirubin Negative (Negative) Urine Urobilinogen Negative (Negative) Ur Leukocyte Esterase Trace H (Negative) Urine WBC (Auto) 0-5 (0-5) /hpf Urine RBC (Auto) 0-2 (0-2) /hpf U Hyaline Cast (Auto) 0-2 (0-2) /lpf U Epithel Cells (Auto) 0-2 (0-2) /hpf Urine Bacteria (Auto) 1+ H (None Seen) Administered Medications Discontinued Medications Ioversol (Optiray 320 125ml) 120 ml IV ONCE ONE Stop: 01/30/25 13:25 Last Admin: 01/30/25 13:24 Dose: 120 ml Documented By: HEIDY Imaging Data Radiologist's Impression: Chest X-Ray 01/30/25 12:01 XR chest 1V portable HISTORY: 84 years-old Male weakness acute weakness COMPARISON: November 27, 2024, 07/30/2019. TECHNIQUE: AP view of the chest FINDINGS: Left subclavian pacer. Mild cardiomegaly. No pneumothorax, pleural effusion, airspace consolidation or pulmonary edema. 6 mm nodular focus projected over the left lung base is unchanged back to at least 2019. Subacute to chronic appearing nondisplaced left-sided rib fractures are again noted. IMPRESSION: No acute process. ACT 112: Negative or not required by law. The above report was generated using voice recognition software. It may contain grammatical, syntax or spelling errors. Electronically signed by: Primo Thao M.D. 01/30/2025 12:[address] 01/30/25 12:18 CT head/brain wo con CLINICAL HISTORY: 84 years-old Male with neuro deficit, acute stroke suspected. Acute stroke like symptoms TECHNIQUE: Multiple axial CT images of the head were obtained without contrast. A dose lowering technique was utilized adhering to the principles of ALARA. COMPARISON: CTA head of same day, head CT 11/27/2024 FINDINGS: No acute intracranial hemorrhage, midline shift, intracranial mass, hydrocephalus, territorial ischemia or abnormal extra-axial collection. Involutional changes with probable chronic microvascular ischemic disease. Streak artifact from a metallic density structure within the right temporal bone on image 12 series 3. Prior bilateral lens repair. The calvarium is intact. Mastoid air cells are clear. Mild maxillary and moderate ethmoid sinus mucosal thickening. IMPRESSION: No acute intracranial abnormality. ACT 112: Negative or not required by law. The above report was generated using voice recognition software. It may contain grammatical, syntax or spelling errors. Electronically signed by: Primo Thao M.D. 01/30/2025 1:53 PM Head CTA 01/30/25 12:18 CTA ANGIOGRAPHY OF THE HEAD CLINICAL HISTORY: neuro deficit, acute stroke suspected. Syncope. COMPARISON STUDY: Head CT November 27, 2024. MRA of the head July 16, 2023. TECHNIQUE: Helical axial images of the head were obtained following uneventful intravenous administration of 120 cc of Optiray. Sagittal and coronal reconstructions were viewed as well as maximal intensity projections on an independent 3-D workstation. Automated exposure control was utilized for the study. A dose lowering technique was utilized adhering to the principles of ALARA. FINDINGS: No acute intracranial hemorrhage, midline shift or mass effect is present. Please note that the head CT will be reported separately. The bilateral M1, M2, A1 and A2 segments are patent. There is no intracranial aneurysm. No intracranial vessel occlusion is identified. Posterior circulation is intact. IMPRESSION: Unremarkable CTA of the head. ACT 112: Negative or not required by law. Electronically signed by: Montrell Lomeli M.D. 01/30/2025 2:00 PM Neck CTA 01/30/25 12:18 CT angio neck with con CLINICAL HISTORY: 84 years-old Male with neuro deficit, acute stroke suspected. Acute stroke like symptoms COMPARISON STUDY: CTA head of same day TECHNIQUE: Following the IV administration of 120 of Optiray, CT angiogram of the neck was performed from the aortic arch to the skull base. Images are reviewed in the axial, sagittal, and coronal planes. 3-D MIPS images are created and assessed. IV contrast was administered without complication. All measurements were calculated based on NASCET criteria. A dose lowering technique was utilized adhering to the principles of ALARA. CT DOSE: 1167.46 mGy.cm FINDINGS: Left subclavian pacer. Three-vessel morphology of the thoracic aortic arch. Patent common carotid arteries. Moderate atherosclerosis of the left carotid bulb causing less than 50% stenosis. There is moderate to advanced atherosclerosis of the right carotid bulb causing approximately 80% stenosis at the origin of the right ICA. Codominant and patent vertebral arteries. The lung apices are clear without pneumothorax. Unremarkable soft tissues. Degenerative changes of the cervical spine. IMPRESSION: 1. 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 2. Otherwise unremarkable CTA of the neck. ACT 112: Negative or not required by law. The above report was generated using voice recognition software. It may contain grammatical, syntax or spelling errors. Electronically signed by: Primo Thao M.D. 01/30/2025 2:02 PM Discharge Plan Visit Data Chief Complaint: Neuro Symptoms/Deficit Stated Complaint: SYNCOPE ED Provider: Mati Sow Discharge Problem: Stroke-like symptoms, Expressive aphasia, Generalized weakness, Hx of spinal stenosis Patient Disposition: Admitted As Inpatient Condition: Good Forms Stand Alone Forms: [employer] Prescriptions Prescriptions: No Action atorvastatin 20 mg tablet 20 mg PO HS Qty: 90 3RF amlodipine 5 mg tablet 5 mg PO DAILY Qty: 90 3RF losartan 50 mg tablet 50 mg PO QPM Qty: 90 0RF Rx Instructions: TAKE THIS MED IN ADDITION TO LOSARTAN 25MG = 75MG DAILY. folic acid 1 mg tablet 1 mg PO HS Qty: 90 1RF metoprolol succinate 25 mg tablet extended release 24 hr 25 mg PO QAM Qty: 90 1RF albuterol sulfate 90 mcg/actuation HFA aerosol inhaler 1 - 2 puff inhalation .Q 4-6 HOURS PRN (Reason: shortness of breath) Qty: 8.5 1RF Rx Instructions: 1-2 PUFFS inhalation Q4-6 hours PRN; gabapentin 400 mg capsule 400 mg PO BID Qty: 180 1RF Rx Instructions: TAKE 1 CAPSULE BY MOUTH TWO TIMES DAILY temazepam 15 mg capsule 15 mg PO HS PRN (Reason: sleep) Qty: 90 1RF apixaban 5 mg tablet 5 mg PO BID Qty: 180 3RF nitroglycerin 0.4 mg tablet, sublingual 0.4 mg SL Q5M PRN (Reason: Chest Pain) Qty: 25 2RF Rx Instructions: If taken 3 times over 15 minutes, please call 911. cyclobenzaprine 10 mg tablet 10 mg PO HS PRN (Reason: Muscle Spasm) methocarbamol 500 mg tablet 500 mg PO Q8H trazodone 50 mg tablet 50 - 100 mg PO HS PRN (Reason: Sleeplessness) Rx Instructions: TAKE 1-2 TABLETS BY MOUTH AT BEDTIME NEEDED FOR SLEEPLESSNESS losartan 25 mg tablet 25 mg PO BID Rx Instructions: Take 25mg by mouth in the morning. Then take 25mg w/ 50mg to equal 75mg in the evening Referrals Referrals: Justa Moore MD [Primary Care Provider] -
[2025-01-30 15:23] LABS: Appearance Urine Clear (Clear); Bacteria Urine Automated 1+ (None Seen); Bilirubin Urine Negative (Negative); Blood Urine Negative (Negative); Cast Urine Automated 0-2 /lpf (0-2); Color Urine Yellow; Epithelial Cell Urine Auto 0-2 /hpf (0-2); Glucose Urine UA Negative (Negative); Ketones Urine Negative (Negative); Leukocyte Esterase Urine Trace (Negative); Nitrite Urine Negative (Negative); Protein Urine Negative (Negative); RBC Urine Automated 0-2 /hpf (0-2); Specific Gravity Urine 1.035 (1.000-1.030); Urobilinogen Urine Negative (Negative); WBC Urine Automated 0-5 /hpf (0-5); pH Urine 7.5 (4.5-7.5)
--- NOTE | 2025-01-30 15:29 | History & Physical Report ---
Date of Service January 30, 2025 Assessment & Plan (1) Hx of spinal stenosis: (2) Stroke-like symptoms: (3) Atrial fibrillation with slow ventricular response: (4) On apixaban therapy: (5) TIA (transient ischemic attack): Plan 83-year-old male with a past medical history of atrial fibrillation, pacemaker placement, SOMMER, hyperlipidemia, insomnia, asthma admitted with stroke like symptoms. Endorses transient h.o speech slowing and balance lost this morning. No residual sx on EMS eval and arrival. Normal complete physical exam. # Stroke like symptoms/ TIA RF: Age./HTN/ Afib history/ Hyperlipidemia - Transient h/o loss of balance and slowing of speech. - Normal exam on EMS evaluation-- ED-- my exam. - Imaging: CT head/ CT angio head and neck: Atherosclerosis of the right carotid bulb causes high-grade stenosis at the origin of the right ICA. - MRI pending; ordered but pushed d/t weekend. Will keep doing Q2 Neuro check. - Echo pending. Atrial fibrillation, Pacemaker in situ - EKG: Paced rhythm at 60s now. - No cardiac sx. - Continue Metoprolol/ Eliquis. - Last Echo( 2022): EF 60-65% - Pending Echo. HLD - Most recent LDL on 40s. - Atorvastatin 20 mg - Will recheck AM lipids. - Will hold Aspirin until MRI. - Continue Ellquis. VTE ppx: SCDs Diet: Heart healty Code status: DNR/DNI Dispo: Med/surg tele observation History of Present Illness Primary Care Provider: Justa Moore MD Patient is an 83-year-old male with a past medical history of atrial fibrill ation, pacemaker placement, SOMMER, hyperlipidemia, insomnia, asthma. He presents today with transient slowing of speech and imbalance. This morning he was standing with his on side and talking to his neighbor, he was little wobbly ans lost balance once during that time, hit his feet in bench in the hallway of his house. noticed some slowing of speech as well. Seen on bedside at ED with a friend on side, who says that his has messaged his friend at 10:40 AM and she was still concerned about slowing. Mr. morales believes it started around 10 am. He himself did not realize any slowing, though. No injury , did not actually fall, just hit his leg on bench. No LOC, Chest pain, SOB, palpitations, flutters, no new hearing/ vision issue, no limb weakness, no abnormal sensation/ numbness/ tingling in any part of body. Baseline function : IADLs. Drives/ can walk w/o canes, uses sometimes as he has balance issues for many years d/t spinal stenosis. h.o similar episode 3 years ago. EMS assessed his speech and weakness at site and he was ok by that time. On ED, Vitals : stable., NIHSS 0, no speech issue, multiple imaging including CT head, CT angio neck/ head looks unremarkable. EKG : paced rhythms, nothing new. Allergies Allergy/AdvReac Type Severity Reaction Status Date / Time sunflower seed Allergy Mild . Verified 01/30/25 15:13 house dust Allergy Verified 01/30/25 15:13 pramipexole [From Mirapex] Allergy makes Verified 01/30/25 15:13 extremely sleepy ragweed pollen Allergy Verified 01/30/25 15:13 tree and shrub pollen Allergy Verified 01/30/25 15:13 divalproex sodium AdvReac Severe Tachycardia Verified 01/30/25 15:13 Home Medications Medication Instructions Recorded Confirmed Type atorvastatin 20 mg tablet 20 mg PO HS #90 tabs 02/07/24 01/30/25 Rx amlodipine 5 mg tablet 5 mg PO DAILY #90 tabs 04/07/24 01/30/25 Rx losartan 50 mg tablet 50 mg PO QPM #90 tabs 06/24/24 01/30/25 Rx folic acid 1 mg tablet 1 mg PO HS #90 tabs 08/04/24 01/30/25 Rx metoprolol succinate 25 mg 25 mg PO QAM #90 tabs 08/12/24 01/30/25 Rx tablet,extended release 24 hr albuterol sulfate 90 mcg/actuation 1 - 2 puff inhalation .Q 4-6 HOURS 08/14/24 01/30/25 Rx aerosol inhaler PRN shortness of breath #8.5 grams gabapentin 400 mg capsule 400 mg PO BID #180 caps 09/08/24 01/30/25 Rx temazepam 15 mg capsule 15 mg PO HS PRN sleep #90 caps 09/29/24 01/30/25 Rx apixaban 5 mg tablet 5 mg PO BID #180 tabs 10/09/24 01/30/25 Rx nitroglycerin 0.4 mg sublingual 0.4 mg sublingual Q5M PRN Chest 11/09/24 01/30/25 Rx tablet Pain #25 tabs cyclobenzaprine 10 mg tablet 10 mg PO HS PRN Muscle Spasm 01/30/25 01/30/25 History losartan 25 mg tablet 25 mg PO BID 01/30/25 01/30/25 History methocarbamol 500 mg tablet 500 mg PO Q8H 01/30/25 01/30/25 History trazodone 50 mg tablet 50 - 100 mg PO HS PRN Sleeplessness 01/30/25 01/30/25 History Past Med/Surg History Problem List (Updated 01/30/25 @ 16:46 by Rachel Armendariz MD) TIA (transient ischemic attack) Hx of spinal stenosis (Acute) Generalized weakness (Acute) Expressive aphasia (Acute) Stroke-like symptoms (Acute) Elevated procalcitonin (Acute) Elevated lactic acid level (Acute) Non-ST elevation [place] (NSTEMI) (Acute) Leukocytosis (Acute) Multifocal pneumonia (Acute) Sepsis (Acute) Hyperlipidemia Acute diarrhea Pneumonia Congestion of nasal sinus Wears hearing aid in left ear Oticon Opn S 1 disp elsewhere 2019 Hypercholesterolemia Atrial fibrillation with slow ventricular response Lumbar radiculopathy Degenerative joint disease (DJD) of lumbar spine Acquired deviated nasal septum Chronic sinusitis 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) 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, 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 Obstructive sleep apnea (Chronic) Labile hypertension Recurrent chest pain On apixaban therapy (Acute) Asthma (Chronic) Common migraine without aura (Chronic) Homocystinemia (Chronic) Insomnia (Chronic) Osteopenia (Chronic) Peripheral neuropathy (Chronic) Urine incontinence (Chronic) Vertigo, intermittent (Chronic) Medical History Subependymoma Cerebrovascular disease Speech dysfluency Recurrent falls Non-occlusive coronary artery disease requiring drug therapy Closed rib fracture H/O prostate cancer Lumbar facet joint syndrome Sleep apnea HTN (hypertension), benign Status post placement of bone anchored hearing aid (BAHA) Allergic rhinitis Lumbar stenosis Restless legs syndrome Rosacea Tinnitus Tremor Vitamin D deficiency Surgical History 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) S/P left knee surgery S/P prostatectomy Family History Family/Other Diabetes Hypertension Brother Diabetes Mother Diverticulitis Father Esophageal cancer Grandfather (Maternal) Stroke Other No family history of adverse response to anesthesia No family history of bleeding disorder Denies family history of Ovarian cancer Prostate cancer Myocardial infarction Breast cancer Colorectal cancer Social History Smoking Status: Never smoker Second Hand Exposure: No; Do You Dip or Chew Tobacco: No; Hx Alcohol Use: Yes Alcohol type: wine and hard liquor Alcohol Intake Frequency: 4 or More x per/Week Alcohol Intake Frequency Comment: 2 drinks a day- drink before dinner and wine with dinner Hx Substance Use: No Preferred Language: Slovak Communication Ability: Effective Visual Impairment: No Limitations Hearing Ability: Use of Hearing Aid Building Consultant Required: No Beliefs That Will Affect Care: None marital status: Current Living Situation: Spouse Current Living Situation Comment: lives with Kaela current occupational status: retired 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 Well appearing, No acute distress, No swelling in extremity, normal appearing facial structure. no deviation, no focal deficit visible. HEENT: Atraumatic, Normocephalic, No conjunctival injection CVS: S1 S2 no murmur, Regular Rhythm, no LE edema Respiratory: BL equal air entry with NVBS. No rhonchi, wheezes, or crackles. No increased work of breathing GI: Soft, Nondistended, Nontender, Normal Bowel sounds + MSK: No gross deformities noted, 5/5 power in BL UL, LL. Normal reflex in BL triceps, biceps and knee. Skin: Warm, Dry, few scratches on back, nothing typical. Neuro: Alert, Oriented to TPP, No Focal deficit, cranial nerve II-XII grossly intact, can frawn, can blow, shrugs shoulder, EOM intact. No sensory deficit identified as well. Psych: Speech is clear and normal pace. Mood and Affect congruent, Cooperative on exam Results & Data Results & Data Vital Signs (Past 12 Hours) Vital Signs Temp Pulse Pulse Resp BP BP Pulse Ox 01/30/25 14:36 61 13 152/90 H 98 01/30/25 14:11 60 20 155/87 H 98 01/30/25 14:09 69 15 155/87 H 98 01/30/25 13:33 60 11 L 99 01/30/25 13:00 60 14 99 01/30/25 12:22 64 01/30/25 12:02 62 14 98 01/30/25 12:02 36.7 C 63 14 138/90 96 O2 Del Method 01/30/25 14:36 01/30/25 14:11 Room Air 01/30/25 14:09 01/30/25 13:33 01/30/25 13:00 01/30/25 12:22 01/30/25 12:02 Room Air 01/30/25 12:02 Room Air Supervising Physician Co-Signing Physician Notes ATTESTATION I also saw the patient and confirmed lawler portions of the history and exam. I agree with the impression and plan in the resident documentation, and as summarized below. 84 y/o male with episode of slurred speech and generalized weakness/poor coordination. mentions that his lips were swollen, but upon questioning, I think she means that his speech sounded as if his lips were swollen; patient denies lip swelling, and there is no mention in ED documentation of such. Has seen neurology in the past - outpatient for migraine HAs; also had inpatient evaluation and EEG for mental status change. While notes patient sometimes has problems speech, but not to the extent he did today. Symptoms started to improve by time EMS arrived and were completely resolved upon ED arrival. EXAM VS stable, mildly hypertensive Alert and oriented. Speech is clear. No difficulty with work finding. No facial drooping appreciated. CV regular (paced on monitor) Lungs clear with non labored respirations ABD SNT No neuromotor deficits appreciated. Biceps/triceps/signals intelligence superintendent symmetrical; LE strength symmetrical, dorsi/plantar flexion. DATA Labs CBC and BMP unremarkable Last LDL around [address] head non acute CTA head unremarkable CTA neck with high grade stenosis carotid bulb right ICA Micro Urine culture pending IMPRESSION & PLAN TIA MRI if able (has pacemaker); may not be possible over the weekend Neuro checks Check lipids in AM to assure compliance with statin; well under goal last check Add ASA 81 mg for now Neurology consultation Additional per resident documentation Resident Activity Tracking Resident Involvement: Resident Care Provided Care Provided: Adult Hospital Medicine
[2025-01-30] MEDS ORDERED: MELATONIN 3 MG TAB PO PRN (15:47)
[2025-01-30] MEDS ORDERED: ACETAMINOPHEN 325 MG TAB PO PRN (15:47)
[2025-01-30] MEDS ORDERED: POLYETHYLENE (MIRALAX) 17 GM PACK PO PRN (15:47)
[2025-01-30] MEDS ORDERED: NITROGLYCERIN SL 0.4 MG/TAB TAB SL PRN (21:36)
[2025-01-30] MEDS ORDERED: LABETALOL HCL IV 5 MG/ML 20ML IV PRN (21:36)
[2025-01-30] MEDS ORDERED: CYCLOBENZAPRINE HCL 10 MG TAB PO PRN (21:36)
[2025-01-30] MEDS ORDERED: ALBUTEROL HFA 8 GM INHALER INH PRN (21:36)
[2025-01-30] MEDS: traZODone HCL 50 MG TAB PO PRN (22:29)
[2025-01-30] MEDS: TEMAZEPAM 15 MG CAPSULE PO PRN (22:30)
[2025-01-30] MEDS: METHOCARBAMOL 500 MG TABLET PO SCH (22:31)
[2025-01-30] MEDS: FOLIC ACID 1 MG TAB PO SCH (22:31)
[2025-01-30] MEDS: amLODIPine BESYLATE 5 MG TAB PO SCH (22:31)
[2025-01-30] MEDS: LOSARTAN POTASSIUM 50 MG TAB PO SCH (22:31)
[2025-01-30] MEDS: ATORVASTATIN 20 MG TAB PO SCH (22:31)
[2025-01-30] MEDS: GABAPENTIN 400 MG CAP PO SCH (22:32)
[2025-01-30] MEDS: APIXABAN 5 MG TABLET PO SCH (22:32)
[2025-01-30] MEDS: LOSARTAN POTASSIUM 25 MG TAB PO SCH (22:32)
[2025-01-30] MEDS: METOPROLOL SUCC 25MG EXT REL TAB PO SCH (22:33)
[2025-01-30 23:09] VITALS: TEMP 97.7
--- NOTE | 2025-01-30 23:14 | Electrocardiogram Report ---
Test Reason : Blood Pressure : */* mmHG Vent. Rate : 61 BPM Atrial Rate : 326 BPM P-R Int : * ms QRS Dur : 118 ms QT Int : 438 ms P-R-T Axes : * -56 4 degrees QTcB Int : 440 ms Ventricular-paced rhythm Abnormal ECG When compared with ECG of 27-Nov-2024 12:28, No significant change was found Confirmed by Blake Christensen ([id number]) on 01/30/2025 11:14:05 PM Referred By: Confirmed By: Blake Christensen
[2025-01-31 06:20] LABS: Basophils # (auto) 0.03 K/uL (0.00-0.20); Basophils % (auto) 0.6 %; Eosinophils # (auto) 0.31 K/uL (0.00-0.50); Eosinophils % (auto) 6.4 %; Hematocrit (blood only) 39.3 % (42.0-52.0); Hemoglobin 13.6 g/dl (14.0-18.0); Immature Granulocytes # (auto) 0.01 K/uL (0.01-0.20); Immature Granulocytes % (auto) 0.2 %; Lymphocytes % (auto) 28.8 %; Mean Corpuscular Hemoglobin 31.9 pg (25.0-34.0); Mean Corpuscular Hgb Conc 34.6 g/dL (32.0-36.0); Mean Corpuscular Volume 92.3 fL (80.0-100.0); Mean Platelet Volume 9.5 fL (9.4-12.4); Monocytes # (auto) 0.35 K/uL (0.11-0.59); Monocytes % (auto) 7.2 %; Neutrophils # (auto) 2.76 K/uL (1.40-6.50); Neutrophils % (auto) 56.8 %; Platelet Count 141 K/uL (130-400); RDW Coefficient of Variation 12.8 % (11.5-14.5); Red Blood Count 4.26 M/uL (4.70-6.10); White Blood Count 4.86 K/ul (4.8-10.8)
[2025-01-31 06:39] LABS: Calcium 9.2 mg/dl (8.6-10.3); Creatinine Clr Calc Pharmacy 48.2 ml/min; Potassium 4.4 mmol/L (3.5-5.1)
[2025-01-31 07:49] VITALS: BP 122/78; RESP 18; O2SAT 96
[2025-01-31 08:24] LABS: Estimated Average Glucose 103 mg/dl; Hemoglobin A1C 5.2 % (4.5-5.6)
[2025-01-31] MEDS: ASPIRIN 81 MG CHEW PO SCH (09:20)
--- NOTE | 2025-01-31 10:04 | Discharge Summary ---
Date of Service January 31, 2025 Admission HPI Per Admitting Provider Patient is an 83-year-old male with a past medical history of atrial fibrillation, pacemaker placement, SOMMER, hyperlipidemia, insomnia, asthma. He presents today with transient slowing of speech and imbalance. This morning he was standing with his on side and talking to his neighbor, he was little wobbly ans lost balance once during that time, hit his feet in bench in the hallway of his house. noticed some slowing of speech as well. Seen on bedside at ED with a friend on side, who says that his has messaged his friend at 10:40 AM and she was still concerned about slowing. Mr. steve believes it started around 10 am. He himself did not realize any slowing, though. No injury , did not actually fall, just hit his leg on bench. No LOC, Chest pain, SOB, palpitations, flutters, no new hearing/ vision issue, no limb weakness, no abnormal sensation/ numbness/ tingling in any part of body. Baseline function : IADLs. Drives/ can walk w/o canes, uses sometimes as he has balance issues for many years d/t spinal stenosis. h.o similar episode 3 years ago. EMS assessed his speech and weakness at site and he was ok by that time. On ED, Vitals : stable., NIHSS 0, no speech issue, multiple imaging including CT head, CT angio neck/ head looks unremarkable. EKG : paced rhythms, nothing new. Admission Exam Per Admitting Provider Constitutional: Speech sounds normal pace and clear. Well appearing, No acute distress, No swelling in extremity, normal appearing facial structure. no deviation, no focal deficit visible. HEENT: Atraumatic, Normocephalic, No conjunctival injection CVS: S1 S2 no murmur, Regular Rhythm, no LE edema Respiratory: BL equal air entry with NVBS. No rhonchi, wheezes, or crackles. No increased work of breathing GI: Soft, Nondistended, Nontender, Normal Bowel sounds + MSK: No gross deformities noted, 5/5 power in BL UL, LL. Normal reflex in BL triceps, biceps and knee. Skin: Warm, Dry, few scratches on back, nothing typical. Neuro: Alert, Oriented to TPP, No Focal deficit, cranial nerve II-XII grossly intact, can frawn, can blow, shrugs shoulder, EOM intact. No sensory deficit identified as well. Psych: Speech is clear and normal pace. Mood and Affect congruent, Cooperative on exam Principal Diagnosis TIA E. coli UTI Discharge Exam Constitutional: Speech sounds normal pace and clear. Well appearing, No acute distress, No swelling in extremity, normal appearing facial structure. no deviation, no focal deficit visible. HEENT: Atraumatic, Normocephalic, No conjunctival injection CVS: S1 S2 no murmur, Regular Rhythm, no LE edema Respiratory: BL equal air entry with NVBS. No rhonchi, wheezes, or crackles. No increased work of breathing GI: Soft, Nondistended, Nontender, Normal Bowel sounds + MSK: No gross deformities noted, 5/5 power in BL UL, LL. Normal reflex in BL tri ceps, biceps and knee. Skin: Warm, Dry, few scratches on back, nothing typical. Neuro: Alert, Oriented to TPP, No Focal deficit, cranial nerve II-XII grossly intact, can frawn, can blow, shrugs shoulder, EOM intact. No sensory deficit identified as well. Psych: Speech is clear and normal pace. Mood and Affect congruent, Cooperative on exam Discharge Data Allergies Allergy/AdvReac Type Severity Reaction Status Date / Time sunflower seed Allergy Mild . Verified 01/30/25 15:13 house dust Allergy Verified 01/30/25 15:13 pramipexole [From Mirapex] Allergy makes Verified 01/30/25 15:13 extremely sleepy ragweed pollen Allergy Verified 01/30/25 15:13 tree and shrub pollen Allergy Verified 01/30/25 15:13 divalproex sodium AdvReac Severe Tachycardia Verified 01/30/25 15:13 Consultations 01/30/25 14:16 ED Decision to Admit Stat 01/30/25 14:29 ED Decision to Admit Stat Ordered Studies 01/30/25 12:18 CT angio head w con Stat CT angio neck with con Stat CT head/brain wo con Stat Hospital Course (1) Stroke-like symptoms: (2) Atrial fibrillation with slow ventricular response: (3) On apixaban therapy: (4) TIA (transient ischemic attack): (5) UTI (urinary tract infection): Plan 83-year-old male with a past medical history of atrial fibrillation, pacemaker placement, SOMMER, hyperlipidemia, insomnia, asthma admitted with stroke like symptoms. Endorses transient h.o speech slowing and balance lost this morning. No residual sx on EMS eval and arrival. Normal complete physical exam on arrival. Admitted for observation overnight, stable neurology until AM-- hence discharged. # Stroke like symptoms/ TIA - Normal exam on EMS evaluation-- ED-- my exam--> Discharge. - NIHSS scale: 0 - CT head/ CT angio head and neck: Atherosclerosis of the right carotid bulb causes high-grade stenosis at the origin of the right ICA. - Plan Outpatient MRI--ordered. - Aspirin added on DC. #H/O HLD with atherosclerosis - LDL recheck on 32. - Continue Atorvastatin 20 mg - Continue Ellquis ans aspirin. #High-grade stenosis at the origin of the right ICA. - Discussed with Dr. Soriano during admission. - Critical stenosis- will benefit from surgical int. - Dr. Soriano will f/u in Outpatient. Mr. Steve well informed about this plan. #UTI - Asymptomatic E coli UTI. - Male sex and due for vascular procedure soon, will treat with cephalexin 500 p o BID for 7 days. - Patient had already left hospital at time of CS result available-- Informed him via phone. - Antibiotics is transmitted to his pharmacy. Total Time Total Time Spent Total Time Spent (In Minutes): Almas Saravia DO, attending physician, spent 35 minutes myself seeing the patient, discussing with outpatient specialist, reviewing the chart, and documenting today. Discharge Plan Discharge Items Patient Disposition: Home - Self-Care Reason For Visit: STROKE LIKE SX Discharge Diagnosis: TIA Condition on Discharge: Good Activity: Resume your previous activity Non-emergency contact: Primary Care Provider and Neurologist Call non-emergency contact if: your symptoms worsen Follow-up/Referrals: Justa Moore MD [Primary Care Provider] - 02/09/25 4:00 pm Diet: Heart Healthy Ambulatory Orders: MR whitley jackson (Routine) Timeframe: [id number] Location: Determined by Patient Ordered By: Rachel Duran Attending Provider Instructions: You were admitted to the hospital for stroke like symptoms. Your presented with transient speech slowing and loss of vision. Your complete neurology exam was fine by the time EMS reached you and when you were examined in hospital as well. CT imaging of your brain and neck did not show any bleeding, however there is high grade narrowing of your right sided carotid bulb, which we have discussed with Dr. Soriano, cardiovascular surgeon. His team will follow up in outpatient and will arrange for procedure soon. We will also order MRI of your brain for more clear picture of the narrowing, you will discuss this reasult with Dr. Soriano's team. You were admitted for overnight observation in hospital and you did not develop any new symptoms, hence we are discharging you home with above mentioned recommendations. Echocardiogram was also performed during your admission, pending reporting by turning machine operator helper. As you have appointment with cardiology early next week, they will be able to review this for you. A discharge summary will be sent to your primary care physician to ensure continuity of care. Please bring this discharge summary with you to your next office appointment so that your provider can review it at that time. Medications: Your medication list has been reviewed and reconciled upon discharge to ensure accuracy and continuity of care. An updated list of all your medications is included with your hospital discharge paperwork. Please review this list closely and make note of any changes to your medications. 1. Aspirin 81 mg once daily is transmitted to your pharmacy. You can buy over the counter as well. Enteric coated version would help you better. Follow up appointments: - Dr. Brandon Soriano's office will give you call early next week. Make sure to follow up at his office at [facility]. If you don't hear from them, make sure to call his office yourself. - Make a follow up appointment with your PCP within the next week. It is very important that you follow up with them shortly after discharge from the hospital. - Keep all of your follow up appointments as already scheduled. If you cannot make an appointment, notify your provider. CONTACT YOUR PRIMARY CARE PROVIDER if you experience any of the following: - Difficulty following your treatment plan - Difficulty taking any of your medications CALL 911 OR GO TO THE EMERGENCY DEPARTMENT if you experience any of the following: - New weakness or neurological problems like blurring of vision, slurring of speech, slowing of speech. - Sudden, severe abdominal pain or nausea/vomiting - Severe chest pain or chest pain that radiates to your jaw or arm - Sudden, severe shortness of breath or difficulty breathing Pending Studies at Discharge: No Stand-Alone Forms: My [employer], Smoking Cessation Medications and DC Order Prescriptions: New aspirin 81 mg tablet,delayed release (DR/EC) 81 mg PO DAILY Qty: 30 0RF cephalexin 500 mg capsule 500 mg PO BID 7 Days Qty: 14 0RF Continued atorvastatin 20 mg tablet 20 mg PO HS Qty: 90 3RF amlodipine 5 mg tablet 5 mg PO DAILY Qty: 90 3RF losartan 50 mg tablet 50 mg PO QPM Qty: 90 0RF Rx Instructions: TAKE THIS MED IN ADDITION TO LOSARTAN 25MG = 75MG DAILY. folic acid 1 mg tablet 1 mg PO HS Qty: 90 1RF metoprolol succinate 25 mg tablet extended release 24 hr 25 mg PO QAM Qty: 90 1RF albuterol sulfate 90 mcg/actuation HFA aerosol inhaler 1 - 2 puff inhalation .Q 4-6 HOURS PRN (Reason: shortness of breath) Qty: 8.5 1RF Rx Instructions: 1-2 PUFFS inhalation Q4-6 hours PRN; gabapentin 400 mg capsule 400 mg PO BID Qty: 180 1RF Rx Instructions: TAKE 1 CAPSULE BY MOUTH TWO TIMES DAILY temazepam 15 mg capsule 15 mg PO HS PRN (Reason: sleep) Qty: 90 1RF apixaban 5 mg tablet 5 mg PO BID Qty: 180 3RF nitroglycerin 0.4 mg tablet, sublingual 0.4 mg SL Q5M PRN (Reason: Chest Pain) Qty: 25 2RF Rx Instructions: If taken 3 times over 15 minutes, please call 911. cyclobenzaprine 10 mg tablet 10 mg PO HS PRN (Reason: Muscle Spasm) methocarbamol 500 mg tablet 500 mg PO Q8H trazodone 50 mg tablet 50 - 100 mg PO HS PRN (Reason: Sleeplessness) Rx Instructions: TAKE 1-2 TABLETS BY MOUTH AT BEDTIME NEEDED FOR SLEEPLESSNESS losartan 25 mg tablet 25 mg PO BID Rx Instructions: Take 25mg by mouth in the morning. Then take 25mg w/ 50mg to equal 75mg in the evening Discharge Orders: Discharge Order (Routine); Ordered 01/31/25 Ordered By: Rachel Chowdary/Other Patient Handouts: Carotid Artery Problems: Stroke, Having Carotid Endarterectomy, AFib, ED TIA: Transient Ischemic Attack Admission Data Admit Date/Time: 01/30/25 15:47 Attending Provider: Almas Ramon Admit Provider: Rachel Armendariz Primary Care Provider: Justa Moore Other Providers: Keith Barrera Other Interventions: Discharge Summary Assessment (RN) Last Done: 01/31/25 12:16 Supervising Physician Co-Signing Physician Notes ATTESTATION I also saw the patient and confirmed lawler portions of the history and exam. I also discussed the case with outpatient neurology and vascular surgery, I agree with the impression and plan in the resident documentation, and as summarized below. No recurrent symptoms. He feels well this morning and anticipating discharge. MRI unable to be completed over the weekend due to pacemaker. EXAM VS as noted Alert and oriented. Speech is clear. No difficulty with work finding. CV regular Lungs clear with non labored respirations ABD SNT DATA Imaging CT head non acute CTA head unremarkable CTA neck with high grade stenosis carotid bulb right ICA Micro Urine culture > 100,000 colonies e.coli IMPRESSION & PLAN TIA UTI Right carotid bulb stenosis Discussed all results with patient MRI to be scheduled as outpatient; results would not change person in the short term ASA 81 mg daily Discussed increased risks of bleeding in combination with DOAC (he had been on previously) Outpatient follow up with vascular surgery to review options for carotid disease Low dose ASA Already on statin; would not increase dose given low LDL Outpatient antibiotics for UTI Additional per resident documentation
[2025-01-31 12:19] VITALS: PULSE 63
== END 2025-01-31 13:43 | disposition home or self-care (01) ==
LOC: SUATTDRO → EDINP 12:02 → ED 12:02 → 2N 21:06